=== PATIENT | female | born 1930 | race Caucasian/White ===

== ENCOUNTER 2016-10-16 12:05 | Inpatient (IN) | payer MEDICARE ==
[~2016-10-16] VITALS: Ht 172.7 cm; Wt 72.7 kg
[~2016-10-16 12:05] MED LIST: AMBIEN5 MG PO; ARICEPT10 MG PO; ASPIRIN81 MG PO; ATIVAN0.5 MG PO; BENADRYL25 M1 PO; BETAPACE 120 M120 MG PO; BUMEX2 MG PO; CARDIZEM CD180 MG PO; CHERATUSSIN AC473 ML PO; CLARITHROMYCIN500 M1 PO; COLACE100 MG PO; COUMADIN5 MG PO; COZAAR100 MG PO; CYMBALTA60 MG PO; HYDROCODONE-APA1 TAB PO; KLOR-CON 1010 MEQ PO; LEVOTHYROXINE50 MCG PO; MIRALAX17 GM PO; NIFEDICAL30 MG/BOTT PO; NORCO 10/325 TA1 TA1 PO; PHENERGAN25 M1 PO; PLAVIX75 MG PO; PREMARIN1.25 MG PO; PRILOSEC20 MG PO; SINGULAIR10 MG PO
[2016-10-16 13:01] LABS: BASOPHILS 0 % (0.0-2.0); EOSINOPHILS 0 % (0-7); HEMATOCRIT 38.8 % (36.0-48.0); HEMOGLOBIN 12.1 g/dL (12-16); IMMATURE GRANULOCYTES 0.4 % (0-5); LYMPHOCYTES 17.5 % (15-50); MCH 30.9 pg (26.0-34.0); MCHC 31.2 g/dL (31.0-37.0); MEAN PLATELET VOLUME 11.1 fL (7.4-10.4); MONOCYTES 8.4 % (2-11); NEUTROPHILS 73.7 % (40-80); PLATELET COUNT 196 10x3/uL (130-400); RBC 3.92 10x6/uL (4.00-5.40); RDW 13.1 % (11.5-14.5); WBC 4.6 10x3/uL (4.8-10.8)
[2016-10-16 13:22] LABS: ALBUMIN 3.7 g/dL (3.4-5.0); ANION GAP 14.2 mmol/L (8-16); BILIRUBIN - TOTAL 0.73 mg/dL (0.2-1.3); CALCIUM 9.2 mg/dL (8.5-10.1); CREATININE - SERUM 0.9 mg/dL (0.6-1.3); POTASSIUM - SERUM 4.2 mmol/L (3.5-5.1); PROTEIN - SERUM 6.9 g/dL (6.4-8.2)
[2016-10-16 13:45] LABS: TROPONIN-I 0.531 ng/mL (0.000-0.060)
[2016-10-16 14:26] LABS: CREATINE KINASE 43 UL (21-215); PRO BNP 5829 pg/mL (0-450)
--- NOTE | 2016-10-16 16:47 | NUR ---
TRANSFER FROM ER BY W/C. MAMADOUINTED TO ROOM. CALL LIGHT IN REACH. WILL CONT. PLAN OF CARE.
[2016-10-16 16:59] VITALS: BMI 24.3
[2016-10-16 20:00] VITALS: BP 123/79
--- NOTE | 2016-10-16 21:29 | HP ---
PATIENT: THELMA SEWELL MEDICAL RECORD: [id number] ACCOUNT: [id number] LOCATION:[address] : 29 ADMISSION DATE: 10/16/16 HISTORY AND PHYSICAL EXAMINATION REASON FOR ADMISSION: Shortness of breath. HISTORY OF PRESENT ILLNESS: The patient is an 85-year-old female with history of coronary artery disease. She apparently had some coronary stents placed approximately 2 weeks ago. She has noticed some mild shortness of breath with exertion for some time, but she thinks that her recent echocardiogram did not show a problem. Additionally, she had a mitral valve replacement in [address] [place] [address] Sonia Concepcion. She woke up this morning having difficulty breathing as she said it was awful. She has had no cough, just could not catch her breath. She eventually presented to the Emergency Room by EMS, was hypertensive and tachypneic. She was evaluated by Dr. Quinones. She noted the patient being congestive heart failure and she is now admitted for treatment. She denies any chest pain symptoms similar to this in the past. The patient's echocardiogram 2 weeks ago revealed normal LV size with an EF of 40%, left atrium was 3.8 cm, right atrium and right ventricle are mildly dilated, aortic valve was replaced with tissue prosthesis. Mitral valve shows significant restenosis. The valve area is 0.9 and severe tricuspid regurgitation with pulmonary hypertension. PAST MEDICAL HISTORY: Aortic valve replacement, essential hypertension, GERD, hyperlipidemia, osteoarthritis of knees intervertebral disc degeneration, history of mitral valve replacement, pulmonary hypertension, dementia and peripheral edema. History of atrial fibrillation with rapid ventricular response, 10/05/2016, RCA PTCA and hypothyroidism. PAST SURGICAL HISTORY: She had laminectomy for degenerative disc disease, mitral valve replacement in 2002, appendectomy, laparoscopic cholecystectomy, hysterectomy, left partial knee replacement and lumbar laminectomies. SOCIAL HISTORY: Nonsmoker, lifelong. She is . ____ lives in the area so she has moved here. FAMILY HISTORY: Mother and father both had CHF and CAD. Mother had hypertension. ALLERGIES: None known. HOME MEDICATIONS: Diltiazem 30 mg p.o. t.i.d., Plavix 75 mg p.o. daily, sotalol 120 mg p.o. b.i.d., Klor-Con 10 mEq p.o. b.i.d., nifedipine XR 30 mg p.o. daily, Bumex 2 mg p.o. daily, losartan 100 mg p.o. daily and levothyroxine 50 mcg p.o. daily. REVIEW OF SYSTEMS: GENERAL: Fatigued. No fever. HEENT: No recent visual change, sinus congestion, or sore throat. She does have hearing difficulty. RESPIRATORY: Marked onset of shortness of breath this morning, but she does admit to some mild exertional dyspnea for the last several weeks. She denies cough or sputum production. CARDIAC: Denies chest pain, palpitations, but she has had some ankle edema. HISTORY AND PHYSICAL [id number] THELMA SEWELL GASTROINTESTINAL: No nausea, vomiting, change in stools or blood per rectum. GENITOURINARY: Denies dysuria. Has mild stress incontinence. ENDOCRINE: Denies polyuria, polydipsia, heat or cold. NEUROLOGIC: No history of stroke, TIA, or vascular headaches. Admits to memory loss. MUSCULOSKELETAL: Chronic arthralgias in her knees and lumbar spine, no sciatica, currently. INTEGUMENT: No rash or itching. PSYCHIATRIC: Denies depress mood. PHYSICAL EXAMINATION: VITAL SIGNS: Temperature 98.4 Fahrenheit orally, pulse 72 and regular, respirations are 20 and unlabored, blood pressure 163/108 with a sat 90% on 2 liters. GENERAL: Alert and oriented. Normocephalic. Eyes are clear. Oropharynx unremarkable. NECK: No bruits or JVD. CHEST: She has bilateral crackles without wheeze. She is not a candidate for having retractions. HEART: Regular rate with a faint aortic murmur noted on systole. ABDOMEN: Soft, nontender and mildly obese. EXTREMITIES: She has 2+ mild pedal and 1+ pretibial edema of the knees bilaterally. NEUROLOGICAL: Oriented to person, place, and time currently. No motor or sensory deficits are appreciated. Gait was not tested. LABORATORY DATA: Shows white count of 4.6, H&H of 12 and 38.8 respectively with normal differential. BMP is normal with a GFR of 63 mL per minute. Glucose is 141 nonfasting. Troponin 0.531. ProBNP is 5829. Blood gas showed acidosis with pH of 7.180, pCO2 of 68 and pO2 of 78. DIAGNOSTIC DATA: Chest x-ray shows moderate congestive heart failure with right pleural effusion. ASSESSMENT: 1. New onset congestive heart failure. 2. Respiratory acidosis. 3. Recent percutaneous transluminal coronary angioplasty of the RCA. 4. History of paroxysmal atrial fibrillation, currently in sinus rhythm. 5. History of aortic valve replacement. 6. Essential hypertension. 7. Hypothyroidism. 8. Osteoarthritis. 9. Pulmonary hypertension. 10. Hyperlipidemia. 11. Gastroesophageal reflux disease. PLAN: The patient will be admitted to the cardiac floor. She will be on cardiac monitoring and IV Lasix. Repeat echocardiogram, serial cardiac enzymes. TRANSINT:[id number] Voice Confirmation ID: [id number] DOCUMENT ID: [id number] HISTORY AND PHYSICAL [id number] THELMA SEWELL TIMOTHY MD at 2129 CC: [id number] DICTATION DATE: 10/16/161741 COMPLAINT OPERATOR: 10/16/162028 ADM IN [facility] [address] [id number]
[2016-10-17] VITALS: BP 103/60
[2016-10-17 04:00] VITALS: BP 119/71
[2016-10-17 05:40] LABS: CHLORIDE - SERUM 107 mmol/L (98-107); CKMB 1.9 U/L (0.0-3.6); CREATINE KINASE 53 UL (21-215); MAGNESIUM - SERUM 1.5 mg/dL (1.8-2.4); POTASSIUM - SERUM 3.7 mmol/L (3.5-5.1); SODIUM 145 mmol/L (136-145); eGFR NON AFRICAN AMERICAN 41 mL/min (90-120)
[2016-10-17 05:42] LABS: CALC OSMOLALITY 290 mosm/kg (275-300); CREATININE - SERUM 1.3 mg/dL (0.6-1.3); GLUCOSE 86 mg/dL (74-106); UREA NITROGEN 20 mg/dL (7-18)
[2016-10-17 06:13] LABS: TROPONIN-I 0.577 ng/mL (0.000-0.060)
--- NOTE | 2016-10-17 07:12 | NUR ---
RESTING QUIETLY NAD NOTED
--- NOTE | 2016-10-17 07:41 | NUR ---
ASSESSMENT COMPLETED. TELEMERTY SHOWS SR. 02 AT 2 L/M PER NC. DENIES ANY NEEDS. SR UP WITH CALL LIGHT IN REACH. BED LOW. WILL MONITOR
[2016-10-17 07:56] VITALS: BP 108/61
[2016-10-17 11:57] VITALS: Ht 172.7 cm; Wt 72.7 kg
--- NOTE | 2016-10-17 12:20 | NUR ---
HOB UP. C/O NAUSEA. ZOFRAN GIVEN FOR RELIEF.. TELEMETRY SHOWS SR.
[2016-10-17 12:22] VITALS: BP 107/47
[2016-10-17 16:00] VITALS: BP 114/62
--- NOTE | 2016-10-17 16:16 | NUR ---
Is the patient Alert and Oriented? Yes 0 * How many steps to enter\exit or inside your home? 0 0 * PCP DR Edgar 0 * Pharmacy [facility] 0 * Preadmission Environment Home Alone 0 * ADLs Independent 0 * Equipment Oxygen 0 * Other Equipment walker 0 * List name and contact numbers for known caregivers / representatives who currently or will assist patient after discharge: Feli Hakns- [phone]- friend 0 * Community resources currently utilized Home Health 0 * Please name any agencies selected above. [facility] 0 * Additional services required to return to the preadmission environment? No 0 * Can the patient safely return to the preadmission environment? Yes 0 * Has this patient been hospitalized within the prior 30 days at any hospital? Yes
--- NOTE | 2016-10-17 16:27 | NUR ---
Is the patient Alert and Oriented? Yes 0 * How many steps to enter\exit or inside your home? 0 0 * PCP DR Edgar 0 * Pharmacy [facility] 0 * Preadmission Environment Home Alone 0 * ADLs Independent 0 * Equipment Oxygen 0 * Other Equipment walker 0 * List name and contact numbers for known caregivers / representatives who currently or will assist patient after discharge: Feli Hanks- [phone]- friend 0 * Community resources currently utilized Home Health 0 * Please name any agencies selected above. [facility] 0 * Additional services required to return to the preadmission environment? No 0 * Can the patient safely return to the preadmission environment? Yes 0 * Has this patient been hospitalized within the prior 30 days at any hospital? Yes
--- NOTE | 2016-10-17 16:40 | NUR ---
Patient Name: THELMA SEWELL Admission Status: ER Accout number: [id number] Admission Date: 10-16-2016 : 1929 Admission Diagnosis: Attending: LYNN Current LOS: 1 Anticipated DC Date: Planned Disposition: Home with Home Health Primary Insurance: MEDICARE A & B Discharge Planning Comments: Patient readmitted within 7 days of discharge. Had home health w/ [facility]. She did have one visit w/ the nurse prior to readmission. Patient is not certain why she became short of breath. Stated she did obtain her medications at discharge. She lives alone but has a good friend, Feli Hanks who assist her w/ shopping etc. Patient does have a daughter that lives in [place] Patient home O2 w/ [facility]. Home Health provider- [facility]- [facility] and [facility] for short term medications PCP- Dr Herve ZAMORA will follow to assist w/ discharge planning when appropriate. Patient denied any additional needs at this time. Will follow. Technology Teacher: Kassy Trevizo
--- NOTE | 2016-10-17 18:23 | NUR ---
LYING QUIETLY WITH EYES CLOSED. SR UP WITH CALL LIGHT IN REACH
--- NOTE | 2016-10-17 19:30 | NUR ---
INITIAL ROUNDS CMPLETED. PT DENIES ANY DISCOMFORT. WILL CONTINUE TO MONITOR.
[2016-10-17 20:30] VITALS: BP 107/72
--- NOTE | 2016-10-17 22:09 | NUR ---
NORCO GIVEN WITH SCHEDULED 2100 MEDS FR C/O CHRONIC BACK AND HIP PAIN. ZOFRAN 4MG SIVP GIVEN AT 2200 HRS FOR C/O NAUSEA. PT REQUESTING ATIVAN. INFORMED PT THAT AMBIEN AND NORCO GIVEN AND NEED TO WAIT A BIT. WILL CONTINUE TO MONITOR. SR UP X2, CALL LIGHT WITHIN REACH.
--- NOTE | 2016-10-17 23:59 | NUR ---
CAF PER CM HR 71. PT RESTING WITH EYES CLOSED. RESP EVEN AND REGULAR. SR UP X2, CALL LIGHT WITHIN REACH.
[2016-10-18 00:30] VITALS: BP 90/47
--- NOTE | 2016-10-18 02:38 | NUR ---
PT RESTING WITH EYES CLOSED. RESP EVEN AND REGULAR SR UP X2, CALL LIGHT WITHIN REACH.
--- NOTE | 2016-10-18 03:45 | NUR ---
PT RESTING WITH EYES CLOSED. RESP EVEN AND REGULAR. SR UP X2, CALL LIGHT WITHIN REACH AND BED ALARM ON.
[2016-10-18 04:30] VITALS: BP 119/75
--- NOTE | 2016-10-18 06:27 | NUR ---
VSS THROUGHOUT NIGHT. CAF PER CM. PT SLEPT WELL AFTER ATIVAN ADMINISTRATION. NEEDS MET; WILL CONTINUE TO MONITOR.
[2016-10-18 06:58] LABS: ANION GAP 9.3 mmol/L (8-16); CALCIUM 8.6 mg/dL (8.5-10.1); CARBON DIOXIDE 32.3 mmol/L (21.0-32.0); POTASSIUM - SERUM 3.6 mmol/L (3.5-5.1)
[2016-10-18 07:01] LABS: CREATININE - SERUM 1.8 mg/dL (0.6-1.3)
--- NOTE | 2016-10-18 08:08 | NUR ---
RESTING QUIETLY EYES CLOSED RESP UNLABORED NAD NOTED
[2016-10-18 09:31] VITALS: BP 123/74
[2016-10-18 12:55] VITALS: BP 99/60
[2016-10-18 16:59] VITALS: BP 92/49
[2016-10-18 21:13] VITALS: BP 105/57
--- NOTE | 2016-10-18 22:40 | NUR ---
INITIAL ROUNDS COMPLETED AT 191 HRS. PT DENIED ANY DISCOMFORT. ASSESSMETN COMPLETED AT 1944 HRS. CAF PER CM HR 68. VSS. O2 4LNC. LUNGS DIMINISHED INBASES BILAT. BRUISES NOTED TO L ELBOW. SORES NOTED TO ANTERIOR CHEST. TRACE PEDAL EDEMA. CAREY DRAINING YELLOW URINE. PM MEDS GIVNE INCLUDING NORCO FOR CHRONIC PAIN AND IV ZOFRAN FOR NAUSES. ATIVAN 0.5MG GIVEN AT 2200 HRS FOR ANXIETY. PT CURRENTLY RESTING WITH EYES CLOSED. RESP EVEN AND REGULAR. SR UP X2, CALL LIGHT WITHIN REACH AND BED ALARM ON.
--- NOTE | 2016-10-19 00:25 | NUR ---
PT RESTING WITH EYES CLOSED. RESP EVEN AND REGULAR. CAF PER CM HR 80. WILL CONTINUE TO MONITOR. SR UP X2, CALL LIGHT WITHIN REACH AND BED ALARM ON.
[2016-10-19 00:30] VITALS: BP 112/78; BP 74/45
--- NOTE | 2016-10-19 02:13 | NUR ---
PT RESTING WITH EYES CLOSED. RESP EVEN AND REGULAR. SR UP X2, CALL LIGHT WITHIN REACH AND BED ALARM ON.
[2016-10-19 04:30] VITALS: BP 108/50
--- NOTE | 2016-10-19 04:33 | NUR ---
PT RESTING WITH EYES CLOSED. RESP EVEN AND REGULAR. SR UP X2, CALL LIGHT WITHIN REACH. BED ALARM ON.
[2016-10-19 07:37] LABS: ANION GAP 11.4 mmol/L (8-16); CALCIUM 8.4 mg/dL (8.5-10.1); CARBON DIOXIDE 31.6 mmol/L (21.0-32.0)
[2016-10-19 08:03] VITALS: BP 134/66
--- NOTE | 2016-10-19 09:22 | NUR ---
TELEMETRY CAF. RESP UL ON 02 4L KODY. CHERRY NICHOLAS. CALL LIGHT IN REACH. WILL CONT. PLAN OF CARE.
[2016-10-19 13:00] VITALS: BP 100/58
[2016-10-19 16:23] VITALS: BP 95/50
--- NOTE | 2016-10-19 19:00 | NUR ---
RECEIVED REPORT AND ASSUMED PT CARE FROM DAY SHIFT NURSE @ THIS TIME.
--- NOTE | 2016-10-19 20:10 | NUR ---
PT C/O PAIN TO IV SITE. FLUSHES EASILY, GOOD BLOOD RETURN. HOWEVER, SITE IS REDDENED. LEFT AC IV REMOVED, CATH INTACT ON REMOVAL. DRESSING APPLIED. PT RESITED TO THE LEFT WRIST X2 STICKS WITH 22 GA ANGIOCATH. PT TOLERATED WELL. WILL CONT TO MONITOR.
--- NOTE | 2016-10-19 20:55 | NUR ---
PT C/O PAIN TO HER BACK, RATES @ 6 ON PAIN SCALE. PT ALSO REPORTS HAVING NAUSEA AND ANXIETY. NORCO 10/325 MG 1 PO GIVEN. PHENERGAN 25 MG PO GIVEN AND ATIVAN 0.5 MG PO GIVEN. WILL CONT TO MONITOR.
[2016-10-19 21:31] VITALS: BP 118/58
--- NOTE | 2016-10-19 23:28 | NUR ---
PT TURNS METAL ROLLING MILL OPERATOR LIGHT AND NURSE GOES TO ROOM. PT REQUESTS PAIN PILL OR ATIVAN, STATES "I NEED SOMETHING". WHEN ASKED PT IS SHE WAS HURTING, PT WAS BACK TO SLEEP AND SNORING. WILL CONT TO MONITOR.
[2016-10-20 06:33] VITALS: BP 113/69
[2016-10-20 06:54] LABS: ANION GAP 6.9 mmol/L (8-16); CALCIUM 8.2 mg/dL (8.5-10.1); CARBON DIOXIDE 35.3 mmol/L (21.0-32.0); CREATININE - SERUM 1.5 mg/dL (0.6-1.3); POTASSIUM - SERUM 4.2 mmol/L (3.5-5.1)
--- NOTE | 2016-10-20 07:00 | NUR ---
RECEIVED REPORT FROM AUTOMATIC STEEL TIE ADJUSTER NURSE, RENU ROSALES. PT IN BED, DENIES ANY NEEDS AT THIS TIME. PT REFUSES TO WEAR SCD'S, CALL LIGHT IN REACH, NAD NOTED, WILL CONTINUE TO MONITOR.
[2016-10-20 07:52] VITALS: BP 128/69
--- NOTE | 2016-10-20 09:08 | NUR ---
ADMINSITERED MORNING MEDICATIONS, AND 4MG OF ZOFRAN PER PT REQUEST. PT IN BED, DENIES ANY OTHER NEEDS AT THIS TIME. CALL LIGHT IN REACH, NAD NOTED, WILL CONTINUE TO MONITOR.
[2016-10-20 12:00] VITALS: BP 114/64
--- NOTE | 2016-10-20 12:23 | NUR ---
ADMINSITERED 25MG OF PHENERGAN PER PT REQUEST. PT IN BED, DENIES ANY NEEDS AT THIS TIME. CALL LIGHT IN REACH, FAMILY AT BEDSIDE, NAD NOTED, WILL CONTINUE TO MONITOR.
--- NOTE | 2016-10-20 14:45 | NUR ---
Nutrition follow-up: Diet: Low sodium PO intake ~60% average of last 3 meals Labs reviewed Wt: 164# PO intake is fair at this time. Will continue to provide food choices and honor food preferences within diet restrictions. RDN following.
[2016-10-20 15:44] VITALS: BP 87/47
--- NOTE | 2016-10-20 15:50 | NUR ---
BP OF 87/47, REMOVED NITRO PATCH, WILL RECHECK BP IN ABOUT 30MIN. 1630- BP 114/60, HR 65
--- NOTE | 2016-10-20 16:18 | NUR ---
ADMINSITERED 4MG OF ZOFRAN PER PT REQUEST. PT DENIES ANY OTHER NEEDS AT THIS TIME. CALL LIGHT IN REACH, NAD NOTED, WILL CONTINUE TO MONITOR.
[2016-10-20 16:30] VITALS: BP 114/60
--- NOTE | 2016-10-20 19:03 | NUR ---
SITTING UP IN BED, AAOX3, SKIN WARM AND DRY, RESP UNLABORED, IV PATENT TO LEFT WRIST, CAREY DRAINING GRAVITY, O2@4LNC, COMPLAINING OF NAUSEA, WILL GIVE ZOFRAN WHEN DUE, WILL MONITOR
[2016-10-20 20:33] VITALS: BP 115/53
[2016-10-21 00:32] VITALS: BP 121/59
[2016-10-21 04:42] VITALS: BP 127/66
--- NOTE | 2016-10-21 05:39 | NUR ---
RESTING QUIETLY IN BED, NO DISTRESS NOTED
--- NOTE | 2016-10-21 06:20 | NUR ---
PT LAYING IN BED NO DISTRESS OBSERVED CALL LIGHT IN REACH SRX2 BED LOW AND LOCKED WILL MONITOR
--- NOTE | 2016-10-21 06:48 | NUR ---
RECEIVED REPORT FROM HEALTH CARE SPECIALIST NURSE, RENU ROSALES. PT UP TO SIDE OF BED, AT THIS TIME. DENIES ANY NEEDS, ASSESSMENT DONE AT THIS TIME. CALL LIGHT IN REACH, NAD NOTED, WILL CONTINUE TO MONITOR.
[2016-10-21 07:25] LABS: ANION GAP 8.3 mmol/L (8-16); CALCIUM 8.2 mg/dL (8.5-10.1); CARBON DIOXIDE 32.8 mmol/L (21.0-32.0); CREATININE - SERUM 1.2 mg/dL (0.6-1.3); POTASSIUM - SERUM 4.1 mmol/L (3.5-5.1)
[2016-10-21 08:00] VITALS: BP 147/83
--- NOTE | 2016-10-21 09:00 | NUR ---
ADMINSITERED 4MG OF ZOFRAN FOR NAUSEA. PT VERY NAUSEATED, SO WILL WAIT 30MIN TO ADMINSTER MORNING MED. PT DENIES ANY OTHER NEEDS AT THIS TIME.C ALL LIGHT IN REACH, NAD NOTED, WILL CONTINUE TO MONITOR.
--- NOTE | 2016-10-21 09:38 | NUR ---
ADMINISTERED MORNING MEDICATIONS, PT STATED SHE FEELS MUCH BETTER, DENIES ANY NEEDS AT THIS TIME. CALL LIGHT IN REACH, NAD NOTED, CALL LIGHT IN REACH, NAD NOTED, WILL CONTINUE TO MONITOR.
[2016-10-21 12:00] VITALS: BP 144/84
--- NOTE | 2016-10-21 13:44 | NUR ---
PT WENT FROM CAF TO SB 53.
[2016-10-21 16:00] VITALS: BP 94/38
--- NOTE | 2016-10-21 18:28 | NUR ---
ADMINISTERED NORCO 10MG FOR PAIN LEVEL OF 9/10. PT DENIES ANY OTHER NEEDS AT THIS TIME. CALL LIGHT IN REACH, NAD NOTED, WILL CONTINUE TO MONITOR.
--- NOTE | 2016-10-21 19:03 | NUR ---
SITTING UP IN BED, AAOX3, SKIN WARM AND DRY, RESP UNLABORED, IV PATENT TO LEFT WRIST, O2@4LNC, CAREY DRAINING TO GRAVITY, NO DISTRESS NOTED
[2016-10-21 20:00] VITALS: BP 119/63
[2016-10-22] VITALS: BP 133/56
--- NOTE | 2016-10-22 03:56 | NUR ---
MEDICAL CSR AT BEDSIDE TO OBTAIN VITALS, CALL LIGHT IN REACH. WILL CONTINUE WITH PLAN OF CARE.
[2016-10-22 04:00] VITALS: BP 152/77
--- NOTE | 2016-10-22 06:21 | NUR ---
RESTING QUIETLY IN BED, NO DISTRESS NOTED
[2016-10-22 06:24] LABS: ANION GAP 7.5 mmol/L (8-16); CALCIUM 8.2 mg/dL (8.5-10.1); CARBON DIOXIDE 33.9 mmol/L (21.0-32.0); CREATININE - SERUM 1.2 mg/dL (0.6-1.3); POTASSIUM - SERUM 4.4 mmol/L (3.5-5.1)
--- NOTE | 2016-10-22 07:48 | NUR ---
PT SITTING UP IN BED SLEEPING NO S/S DISTRESS NOTED WILL CONTINUE TO MONITOR.
[2016-10-22 08:14] VITALS: BP 136/77
[2016-10-22 08:18] LABS: MAGNESIUM - SERUM 1.4 mg/dL (1.8-2.4); PHOSPHOROUS 3.6 mg/dL (2.5-4.9)
[2016-10-22 12:40] VITALS: BP 125/55
--- NOTE | 2016-10-22 14:05 | NUR ---
PT WITH MULTIPLE FRIENDS AND FAMILY IN THE ROOM AT THIS TIME. PT DENIES NEEDS AT THIS TIME WILL CONTINUE TO MONITOR.
--- NOTE | 2016-10-22 16:23 | CN ---
PATIENT NAME:THELMA SEWELL MEDICAL RECORD: [id number] : 29 LOCATION:D. D.2123 ADMIT DATE: 10/16/16 ACCOUNT: [id number] CONSULTING PHYSICIAN: ZEUS BARRETT MD REFERRING PHYSICIAN: LUDIN VILLAFUERTE MD DATE OF CONSULTATION: 10/16/2016 Cardiology Consultation DIAGNOSES: 1. Congestive heart failure. 2. Pulmonary edema. 3. Shortness of breath, dyspnea on exertion. 4. Coronary artery disease. 5. Recent percutaneous transluminal coronary angioplasty stent, right coronary artery. 6. Hypertension. 7. Paroxysmal atrial fibrillation, controlled in sinus rhythm on sotalol. HISTORY OF PRESENT ILLNESS: Mrs. Sewell presents with increasing shortness of breath. No chest pain. Chest x-ray is compatible with pulmonary edema. Her heart does remain in sinus rhythm. Her EKG is with no acute ST-T abnormalities. PHYSICAL EXAMINATION: GENERAL APPEARANCE: Well-nourished, well-developed, appears stated age. Level of distress, comfortable. PSYCHIATRIC: Mental status, alert, normal affect. Orientation, oriented to time, place and person. EYES: Lids and conjunctiva, noninjected. No discharge, no pallor. ENT: Lips, teeth, gums, normal dentition. Oropharynx, no cyanosis, no pallor. NECK: Carotid arteries, bilateral normal upstroke, no bruits, no thrills. JUGULAR VEINS: No jugular venous pressure or distention. CERVICAL LYMPH NODES: Nontender, nonenlarged. THYROID: Not enlarged. Nontender. No nodules. LUNGS: Respiratory effort, unlabored. CHEST: Normal curvature. No thoracic deformity. No chest wall tenderness. ____. Bilateral crackles compatible with pulmonary edema. CARDIOVASCULAR: Precordial exam, nondisplaced. No heaves or pericardial thrills. Rate and rhythm, regular. Heart sounds, normal S1, normal S2. No S3, no gallop, no rub. Systolic murmur, not heard. Diastolic murmur, not heard. EXTREMITIES: No cyanosis, no edema. Peripheral pulses, full and equal in all extremities, except as noted. No bruits appreciated. ABDOMEN: Soft, nondistended. Normal aorta. No bruit. Nontender. No masses. Liver, nontender, no hepatomegaly. Spleen, nontender, no splenomegaly. MUSCULOSKELETAL: No joint tenderness. No joint swelling. No erythema. NEUROLOGICAL: Normal gait, normal strength, normal tone. SKIN: Warm and dry. OVERALL IMPRESSION: Congestive heart failure. At this time, she should respond to Lasix therapy. We will use 40 mg IV q.8 hours. We will get an echocardiogram. When we did the cardiac catheterization, her ejection fraction was in the 60% range, but clearly on chest x-ray, she has congestive heart failure and clinically, she has congestive heart failure. She is not out of rhythm and is having no chest pains. I do not think she needs any further ongoing ischemic workup, only treatment of the congestive heart failure with CONSULT REPORT [id number] THELMA SEWELL. We will get an echocardiogram to reevaluate her ejection fraction. TRANSINT:[id number] Voice Confirmation ID: [id number] DOCUMENT ID: [id number] ZEUS BARRETT MD at 1623 CC: [id number] DICTATION DATE: 10/16/16 1405 CAMPUS AIDE: 10/16/16 1434 ADM IN [id number] [place] [address]
--- NOTE | 2016-10-22 16:23 | EC ---
PATIENT:THELMA SEWELL DATE OF SERVICE: 10/16/16 SEX: F MEDICAL RECORD: [id number] DATE OF : 29 LOCATION:D.M2 D.212 AGE OF PATIENT: 85 ADMISSION DATE: 10/16/16 REFERRING PHYSICIAN: INTERPRETING PHYSICIAN: ZEUS ZHANG MD ECHOCARDIOGRAM REPORT ECHO CHARGES 4 ECHO COMPLETE CLINICAL DIAGNOSIS: CHF HX OF MVR / CAD/STENT ECHOCARDIOGRAPHIC MEASUREMENTS (adult normal given) AC root (d.<3.7cm) 3.5 LV Septum d (<1.2 cm> 1.6 Valve Excursion 1.9 LV Septum (systole) 2.0 Left Atria (s.<4.0cm> 4.0 LVPW d(<1.2cm) 1.6 RV (d.<2.3cm) 3.9 LVPW (sytole) 1.8 LV diastole(<5.6CM) 4.9 MV E-F(>70mm/sec) LV systole 3.4 LVOT Diameter 1.3 MV exc.(>10mm) 1.2 Est.ejection fraction (50-75%) Pericardial Effusion N DOPPLER: LVIT A 141 E 201 LA RVSP 91 LVOT 121 AOP1/2T 334 Asc. Ao 160 RVOT 64 RA PA 110 AV Gradient Peak 10.22 AV Mean 5.43 AV Area 1.1 MV Gradient Peak 17.40 MV Mean 7.34 MV Area COMMENTS: Back Office Medical Assistant: Boyd OLMOS Supervisor [place]:1 Dr. Zhang TAPE# PACS DATE OF SERVICE: 10/16/2016 Echocardiogram FINDINGS: 1. Left ventricular chamber size is within1 normal limits. Left ventricular systolic function is markedly depressed, overall ejection fraction is in the 30% range. There is a definite apical hypokinesis. 2. Left atrium is within normal limits at 4.0 cm. Right atrium and right ventricular chamber sizes are mildly dilated. ECHOCARDIOGRAM REPORT [id number] THELMA SEWELL 3. Valvular structures: Aortic valve demonstrates mild calcific aortic stenosis. Valve area calculates to 1.1 cm-squared and there is gradient of 10 mm across the valve. The remaining valvular structures have normal structure and motion. 4. Doppler interrogation elsewise reveals mild aortic insufficiency, moderate mitral regurgitation, severe tricuspid regurgitation and pulmonary systolic pressure is markedly elevated estimated at 92 mmHg. 5. No evidence of pericardial effusion or left ventricular thrombus. TRANSINT:[id number] Voice Confirmation ID: [id number] DOCUMENT ID: [id number] ZEUS ZHANG MD at 1623 CC: [id number] DICTATION DATE: 10/16/16 1642 JUNIOR ACCOUNT MANAGER: 10/16/16 2213 ADM IN [facility] [address] [place] [address]
[2016-10-22 16:57] VITALS: BP 114/84
--- NOTE | 2016-10-22 17:28 | NUR ---
PT SITTING UP IN BED EATING DINNER DENIES NEEDS AT THIS TIME
[2016-10-22 20:00] VITALS: BP 145/74
--- NOTE | 2016-10-22 20:00 | NUR ---
PT RESTING IN BED. ALERT/ORIENTED. SR/SB PER TELEMETRY. O2 @ 4L/NC. SALINE LOCK TO LEFT WRIST. CAREY PATENT TO BEDSIDE DRAIN BAG. NO FURTHER REPORTS OF NAUSEA. SEE ASSESSMENT. CPOC.
[2016-10-23 02:28] VITALS: BP 147/67
--- NOTE | 2016-10-23 04:43 | NUR ---
PATIENT REFUSED ABG.
[2016-10-23 05:35] LABS: BASOPHILS 0.2 % (0.0-2.0); EOSINOPHILS 0 % (0-7); HEMATOCRIT 32.8 % (36.0-48.0); HEMOGLOBIN 10.1 g/dL (12-16); IMMATURE GRANULOCYTES 0.6 % (0-5); LYMPHOCYTES 27.2 % (15-50); MCH 30.6 pg (26.0-34.0); MCHC 30.8 g/dL (31.0-37.0); MCV 99.4 fL (80.0-100.0); MEAN PLATELET VOLUME 12.1 fL (7.4-10.4); MONOCYTES 10.9 % (2-11); NEUTROPHILS 61.1 % (40-80); PLATELET COUNT 162 10x3/uL (130-400); RDW 13.9 % (11.5-14.5); WBC 5.2 10x3/uL (4.8-10.8)
[2016-10-23 06:08] LABS: ANION GAP 8.2 mmol/L (8-16); CALCIUM 8.6 mg/dL (8.5-10.1); CARBON DIOXIDE 32.3 mmol/L (21.0-32.0); CREATININE - SERUM 1.1 mg/dL (0.6-1.3); MAGNESIUM - SERUM 1.5 mg/dL (1.8-2.4); PHOSPHOROUS 3.5 mg/dL (2.5-4.9); POTASSIUM - SERUM 4.5 mmol/L (3.5-5.1)
[2016-10-23 08:00] VITALS: BP 136/73
--- NOTE | 2016-10-23 08:06 | NUR ---
PT SITTING UP IN BED DENIES NEEDS WILL CONTINUE TO MONITOR.
--- NOTE | 2016-10-23 10:14 | NUR ---
Nutrition Follow Up: Chart reviewed. Diet: AHA 1g Na PO Intake: 59% (9 meal avg) I>O No BM since admit Wt gain 9# since admit Meds: Lasix, Synthroid, Zofran, Phenergan Labs noted Pt with good po intake at this time. Rec continue current diet. Will continue to provide selective menus and honor food preferences within the diet ordered. RD following.
[2016-10-23 12:00] VITALS: BP 94/56
--- NOTE | 2016-10-23 15:34 | NUR ---
PT PIV INFILTRATED DC WITH CATHETER TIP INTACT. TRIED TO RESITE PT TIMES 2 STICKS NO SUCCESS. JAMIL RESITED TO R FA 22G X1 STICK.
[2016-10-23 16:00] VITALS: BP 94/48
--- NOTE | 2016-10-23 18:44 | NUR ---
PT SITTING UP IN BED DENIES NEEDS
[2016-10-23 20:00] VITALS: BP 109/52
--- NOTE | 2016-10-23 20:58 | NUR ---
RESTING IN BED. ALERT/ORIENTED. PIV TO RIGHT HAND WITH NS @ KVO FOR ABT. PT REQUESTED ALL SLEEPING AND PAIN MEDS AVAILABLE FOR BEDTIME. MEDS GIVEN. ASSESSMENT. COMPLETED. CALL LIGHT IN REACH. CPOC.
--- NOTE | 2016-10-23 23:53 | NUR ---
PT CONFUSED. SITTING ON SIDE OF BED TALKING INTO PHONE THAT IS MAKING A BUSY SOUND. TELEMETRY IS OFF AND WRAPPED UP BESIDE HER. SHE TELLS NURSE THAT SHE WILL NOT PUT IT BACK ON BECAUSE IT IS "TOO HEAVY". SALINE LOCKED PIV TO RIGHT WRIST.
[2016-10-24] VITALS: BP 148/78
[2016-10-24 05:31] LABS: MAGNESIUM - SERUM 1.7 mg/dL (1.8-2.4); PHOSPHOROUS 3.4 mg/dL (2.5-4.9); POTASSIUM - SERUM 4.9 mmol/L (3.5-5.1)
--- NOTE | 2016-10-24 07:31 | NUR ---
PT SITTING UP IN BED DENIES NEEDS WILL CONTINUE TO MONITOR
[2016-10-24 08:03] VITALS: BP 135/66
[2016-10-24 12:11] VITALS: BP 119/66
[2016-10-24 15:52] VITALS: BP 123/51
--- NOTE | 2016-10-24 16:49 | NUR ---
PT SITTING UP IN BED DENIES NEEDS AT THIS TIME WILL CONTINUE TO MONITOR
--- NOTE | 2016-10-24 21:03 | NUR ---
PT RESTING IN BED. ALERT/ORIENTED. HAD EVIDENCE OF A NOSE BLEED. NOTED THAT RT HAS NOW HUMIDIFIED HER O2 @ 2L/NC. CHERRY PATENT TO BEDSIDE DRAIN BAG. REQUESTING ALL AVAILABLE SLEEP/PAIN/MUSCLE MEDS AVAILABLE. STARTED IV ABT TO PIV IN RIGHT WRIST. SEE ASSESSMENT. CPOC. CALL LIGHT IN REACH.
--- NOTE | 2016-10-24 21:05 | NUR ---
ALL HS MEDS GIVEN.
[2016-10-24 21:48] VITALS: BP 150/68
[2016-10-25 00:30] VITALS: BP 109/60
--- NOTE | 2016-10-25 01:40 | NUR ---
NOTED NEW ORDER PER DR BURKETT. ADMINISTERED LASIX 40MG SIVP TO RIGHT HAND PIV AT THIS TIME. PT ROUSED AND WAS TOLD OF NEW ORDER, NOW BACK TO SLEEP. NO DISTRESS. SR PER TELEMETRY. CPOC.
[2016-10-25 04:30] VITALS: BP 132/66
[2016-10-25 05:51] LABS: MAGNESIUM - SERUM 1.8 mg/dL (1.8-2.4); PHOSPHOROUS 3.7 mg/dL (2.5-4.9); POTASSIUM - SERUM 4.5 mmol/L (3.5-5.1); THYROID STIMULATING HORMONE 3.8 uIU/mL (0.36-3.74)
--- NOTE | 2016-10-25 06:34 | NUR ---
PT ROUSED EASILY FOR AM MEDS, THEN REQUESTED PAIN AND NERVE PILLS. REQUESTED MEDS GIVEN.
--- NOTE | 2016-10-25 07:20 | NUR ---
ASSESSMENT DONE. DENIES NEEDS.
[2016-10-25 08:22] VITALS: BP 146/65
--- NOTE | 2016-10-25 09:41 | NUR ---
RESP UL ON . IV PATENT. CALL LIGHT IN REACH. WILL CONT. PLAN OF CARE.
[2016-10-25 12:07] VITALS: BP 110/43
[2016-10-25 16:45] VITALS: BP 119/46
--- NOTE | 2016-10-25 16:54 | NUR ---
WITHOUT CHANGES OR DISTRESS NOTED AT THIS TIME. DENIES NEEDS.
--- NOTE | 2016-10-25 19:03 | NUR ---
SITTING UP IN BED, AAOX3, SKIN WARM AND DRY, RESP UNLABORED, IV PATENT TO RIGHT HAND, O2@3LNC, CAREY DRAINING TO GRAVITY, NO DISTRESS NOTED
[2016-10-25 20:30] VITALS: BP 104/52
--- NOTE | 2016-10-25 23:25 | NUR ---
ECONOMIC DEVELOPMENT MANAGER AT BEDSIDE TO OBTAIN VITALS, CALL LIGHT IN REACH. WILL CONTINUE WITH PLAN OF CARE.
[2016-10-26 00:30] VITALS: BP 129/54
[2016-10-26 04:30] VITALS: BP 150/69
--- NOTE | 2016-10-26 06:18 | NUR ---
RESTING QUEITLY IN BED, NO DISTRESS NOTED
[2016-10-26 06:50] LABS: ALBUMIN 2.8 g/dL (3.4-5.0); BILIRUBIN - TOTAL 0.44 mg/dL (0.2-1.3); CARBON DIOXIDE 35.6 mmol/L (21.0-32.0); CREATININE - SERUM 1.5 mg/dL (0.6-1.3); POTASSIUM - SERUM 4.6 mmol/L (3.5-5.1); PROTEIN - SERUM 5.9 g/dL (6.4-8.2)
--- NOTE | 2016-10-26 07:52 | NUR ---
ASSESSMENT COMPLETED. O2 @ 3 L/M PER NC. NO TELEMERTY , PT REFUSED TO WEAR. CAREY CATH PATENT TO GRAVITY BAG. SR UP WITH CALL LIGHT IN REACH
[2016-10-26 08:00] VITALS: BP 111/48
[2016-10-26 10:20] LABS: HELICOBACTER PYLORI IGG POSITIVE (NEGATIVE)
[2016-10-26 12:00] VITALS: BP 151/55
--- NOTE | 2016-10-26 13:24 | NUR ---
WAITING IMPATIENTLY FOR GASTRIC SCANNING. RADIOLOGY CALLED TO FIND OUT TIME; WAITING ON A RETURN CALL.
--- NOTE | 2016-10-26 13:35 | NUR ---
RADIOLOGY CALLED AND WILL GET PATIENT IN 15 MINS.
[2016-10-26 16:00] VITALS: BP 124/50
--- NOTE | 2016-10-26 18:07 | NUR ---
LYING QUIETLY. NO NEEDS VOICED. CALL LIGHT IN REACH. DENIES ANY NEEDS. WILL MONITOR
--- NOTE | 2016-10-26 19:03 | NUR ---
SITTING UP IN BED, AAOX3, SKIN WARM AND DRY, RESP UNLABORED, IV INFILTRATED, WILL RESITE, O2@3LNC, CAREY DRAINING TO GRAVITY, NO DISTRESS NOTED
[2016-10-27] VITALS: BP 100/49
[2016-10-27 04:00] VITALS: BP 114/56
--- NOTE | 2016-10-27 04:52 | NUR ---
PT LAYING IN BED NO DISTRESS OBSERVED CALL LIGHT IN REACH SRX2 BED LOW AND LOCKED WILL MONITOR
--- NOTE | 2016-10-27 04:59 | NUR ---
RESTING QUIETLY IN BED, NO DISTRESS NOTED
--- NOTE | 2016-10-27 07:18 | NUR ---
ASSESSMENT COMPLETED. 02 3 L/M PER ID.CAREY CATH PATENT TO BEDSIDE GRAVITY. PT GETS UP IN ROOM. DENIES ANY NEED. SR UP WITH CALL LIGHT IN REACH. WILL MONITOR
[2016-10-27 07:27] VITALS: BP 118/53
[2016-10-27 11:36] VITALS: BP 104/51
[2016-10-27 12:08] LABS: APTT 34.9 SECONDS (22.8-39.4); INR 1.06 (0.85-1.17); PROTIME 13.7 SECONDS (11.6-15.0)
--- NOTE | 2016-10-27 14:50 | NUR ---
UP TO BR PER SELF. GAIT STEADY. BACK TO BED. ZOFRAN GIVEN FOR NAUSEA. WILL MONITOR
[2016-10-27 15:44] VITALS: BP 95/36
--- NOTE | 2016-10-27 15:50 | NUR ---
RESTING QUIETLY. WILL CONTINUE TO MONITOR
--- NOTE | 2016-10-27 18:38 | NUR ---
LYING QUIETLY, DENIES ANY NEEDS. CALL LIGHT IN REACH WITH SR UP.
--- NOTE | 2016-10-27 19:03 | NUR ---
SITTING UP IN BED, AAOX3, SKIN WARM AND DRY, RESP UNLABORED, IV PATENT TO LEFT WRIST, O2@2.5LNC, CAREY DRAINING TO GRAVITY, NO DISTRESS NOTED
[2016-10-27 19:46] VITALS: BP 108/46
[2016-10-28] VITALS (14 sets, daily range): BP systolic 87–121; BP diastolic 40–74
--- NOTE | 2016-10-28 00:38 | NUR ---
PT LAYING IN BED NO DISTRESS OBSERVED CALL LIGHT IN REACH SRX2 BED LOW AND LOCKED CALL LIGHT IN REACH SRX2 RESPERATIONS EVEN AND UNLABORED ON 2LNC WILL MONITOR
--- NOTE | 2016-10-28 07:59 | NUR ---
ASSESSMENT DONE. DENIES NEEDS.
--- NOTE | 2016-10-28 09:06 | NUR ---
IN X-RAY FOR THORACENTESIS. WILL CONT. PLAN OF CARE.
--- NOTE | 2016-10-28 09:07 | NUR ---
TO IR FOR THORACENTESIS
[2016-10-28 10:43] LABS: PROTEIN - BODY FLUID 2.8 G/DL
[2016-10-28 11:17] LABS: LYMPH - BF 76 %; MACROPHAGES BF 12 %; MESOTHELIALS BF 7 %; NEUT - BF 5 %
--- NOTE | 2016-10-28 19:03 | NUR ---
SITTING UP IN BED, AAOX3, SKIN WARM AND DRY, RESP UNLABORED, IV PATENT TO LEFT FOREARM, CAREY DRAINING TO GRAVITY, NO DISTRESS NOTED
[2016-10-29 01:32] VITALS: BP 117/42
--- NOTE | 2016-10-29 02:23 | NUR ---
LYING IN BED WITH CALL LIGHT IN REACH. WILL CONTINUE WITH PLAN OF CARE.
[2016-10-29 04:57] VITALS: BP 127/66
--- NOTE | 2016-10-29 07:58 | NUR ---
ASSESSMENT DONE. DENIES NEEDS.
[2016-10-29 08:38] VITALS: BP 186/131
[2016-10-29] MEDS ORDERED: REGLAN10 MG PO (08:42)
[2016-10-29] MEDS ORDERED: PYLERA CAPSULE1 CAP PO (08:46)
--- NOTE | 2016-10-29 09:04 | NUR ---
RESTS WITH EYES CLOSED. RSP UL ON . CALL LIGHT IN REACH. WILL CONT. PLAN OF CARE.
--- NOTE | 2016-10-29 10:45 | NUR ---
Patient Name: THELMA SEWELL Admission Status: ER Accout number: [id number] Admission Date: 10-16-2016 : 1929 Admission Diagnosis:HEART FAILURE, UNSPECIFIED Attending: LYNN Current LOS: 13 Anticipated DC Date: 10-29-2016 Planned Disposition: Home with Home Health Primary Insurance: MEDICARE A & B PLANNED EXTERNAL PROVIDER: [facility] Discharge Planning Comments: CM RECEIVED DISCHARGE ORDER, MET WITH PT IN ROOM WHO IS IN AGREEMENT WITH DISCHARGE HOME TODAY, DENIES DISCHARGE NEEDS EXCEPT FOR HOME HEALTH RESUMPTION WITH L[facility]DIA AND PT WOULD LIKE NIGERIEN HERNANDO PATIENT TO CHECK HER HOME OXYGEN UNIT AND REPORTS IT IS RUNNING HOT. IMPORTANT MESSAGE FROM MEDICARE PROVIDED AND EXPLAINED. PT ASKED CM TO CALL HER FRIEND JOHNNIE FOR TRANSPORTATION HOME TODAY. CM CALLED JOHNNIE, , WHO REPORTS TO BE ON HER WAY FROM [place] TO RECORDING STUDIO INTERNSHIP PT TODAY. CM CALLED [facility] PATIENT, , SPOKE TO BENITO WHO WILL ARRANGE A TECHNITION TO CONTACT PT AT HOME TODAY TO EVALUATE HOME OXYGEN UNIT. CM CALLED [facility], , SPOKE TO ISABEL AND NOTIFIED OF PT'S DISCHARGE HOME, FAXED DISHCARGE INFORMATION TO [phone] FOR HOME HEALTH RESUMPTION. PT NOTIFIED WHO DENIED FURHTER DISCHARGE NEEDS. Structural Metal Worker: Jayson Carrillo
--- NOTE | 2016-10-29 12:02 | NUR ---
DC GIVEN TO PT
--- NOTE | 2016-10-29 12:32 | NUR ---
DC HOME PRE PERSONAL CAR
[2016-10-29 17:13] LABS: AFB SPECIMEN PROCESSING Concentration (())
[2016-10-30 12:19] LABS: FUNGUS STAIN Final report (())
[2016-11-06] MEDS ORDERED: NIFEDIPINE ER 60 MG (10:48)
[2016-11-06] MEDS ORDERED: VIBRAMYCIN 100100 MG PO (10:49)
[2016-11-06] MEDS ORDERED: FLAGYL500 MG PO (10:50)
[2016-11-10] MEDS ORDERED: HYDROCODONE-APA1 TAB PO (13:27)
[2016-11-10] MEDS ORDERED: COZAAR50 MG PO (13:27)
[2016-11-30 07:09] LABS: FUNGUS MYCOLOGY CULTURE Final report (())
[2016-12-21 13:13] LABS: ACID FAST CULTURE Negative (()); ACID FAST SMEAR Negative (())
== END 2016-10-29 12:32 | disposition home health service (06) | DRG 291 ==
LOC: D.ER 12:05 → D.M2 15:53
PROVIDERS: Emergency Medicine; Family Medicine; General Practice; Internal Medicine Gastroenterology; Internal Medicine Pulmonary Disease; Radiology Diagnostic Radiology; ADMIT Family Medicine
PROC: 0W993ZZ Drainage of Right Pleural Cavity, Percutaneous Approach (ICD-10-PCS; principal; 2016-10-28 09:00)
DX: I11.0 Hypertensive heart disease with heart failure (principal); J96.22 Acute and chronic respiratory failure with hypercapnia; I50.23 Acute on chronic systolic (congestive) heart failure; E03.9 Hypothyroidism, unspecified; M19.90 Unspecified osteoarthritis, unspecified site; I27.2 Other secondary pulmonary hypertension; E78.5 Hyperlipidemia, unspecified; K21.9 Gastro-esophageal reflux disease without esophagitis; I25.10 Atherosclerotic heart disease of native coronary artery without angina pectoris; I48.0 Paroxysmal atrial fibrillation

== ENCOUNTER 2016-11-16 09:05 | Inpatient (IN) | payer MEDICARE ==
[~2016-11-16] VITALS: Ht 170.2 cm; Wt 73.1 kg
[~2016-11-16 09:05] MED LIST changes: +COZAAR50 MG PO; +FLAGYL500 MG PO; +NIFEDIPINE ER 60 MG; +PYLERA CAPSULE1 CAP PO; +REGLAN10 MG PO; +VIBRAMYCIN 100100 MG PO
[2016-11-16 11:27] LABS: APPEARANCE CLEAR (CLEAR); BACTERIA FEW /hpf (NONE SEEN); BILIRUBIN NEGATIVE (NEGATIVE); COLOR YELLOW (YELLOW); EPITHELIAL CELLS RARE /hpf (0-5); GLUCOSE NEGATIVE (NEGATIVE); KETONE NEGATIVE (NEGATIVE); LEUKOCYTE ESTERASE TRACE (NEGATIVE); MUCUS <1+ /lpf (NONE SEEN); NITRITE NEGATIVE (NEGATIVE); PROTEIN NEGATIVE (NEGATIVE); RED CELLS - URINE RARE /hpf (0-5); SPECIFIC GRAVITY 1.015 (1.005-1.020); UROBILINOGEN NORMAL (NORMAL); WHITE CELLS - URINE RARE /hpf (0-5)
[2016-11-16 11:27] LABS: BASOPHILS 0 % (0.0-2.0); EOSINOPHILS 0 % (0-7); HEMATOCRIT 31.6 % (36.0-48.0); HEMOGLOBIN 9.9 g/dL (12-16); IMMATURE GRANULOCYTES 0.5 % (0-5); LYMPHOCYTES 16.2 % (15-50); MCH 30.2 pg (26.0-34.0); MCHC 31.3 g/dL (31.0-37.0); MCV 96.3 fL (80.0-100.0); MEAN PLATELET VOLUME 10.7 fL (7.4-10.4); NEUTROPHILS 78.3 % (40-80); PLATELET COUNT 194 10x3/uL (130-400); RBC 3.28 10x6/uL (4.00-5.40); RDW 14.5 % (11.5-14.5); WBC 7.7 10x3/uL (4.8-10.8)
[2016-11-16 11:38] LABS: INR 0.99 (0.85-1.17); PROTIME 12.9 SECONDS (11.6-15.0)
[2016-11-16 11:43] LABS: ALBUMIN 3.2 g/dL (3.4-5.0); ANION GAP 11.8 mmol/L (8-16); BILIRUBIN - TOTAL 0.5 mg/dL (0.2-1.3); CALCIUM 8.5 mg/dL (8.5-10.1); CARBON DIOXIDE 27.9 mmol/L (21.0-32.0); CREATININE - SERUM 1.6 mg/dL (0.6-1.3); POTASSIUM - SERUM 3.7 mmol/L (3.5-5.1); PROTEIN - SERUM 6.7 g/dL (6.4-8.2)
[2016-11-16 11:51] LABS: MAGNESIUM - SERUM 1.6 mg/dL (1.8-2.4)
--- NOTE | 2016-11-16 14:00 | NUR ---
ASSESSMENT PER FLOW SHEET.PT TO ROOM 2231 FROM ER VIA STRETCHER.ORIENNTATION TO ROOM.CALL LIGHT IN REACH
[2016-11-16 14:15] VITALS: BP 107/57; BMI 23.5
--- NOTE | 2016-11-16 16:08 | NUR ---
PAIN MEDS ORDERED PER MAR
[2016-11-16 16:46] VITALS: BP 102/51
--- NOTE | 2016-11-16 17:01 | NUR ---
REMAINS WITHOUT DISTRESS.PAIN BETTER,BUT MOVING CAUSES HER PAIN.MONITOR FOR NEEDS
--- NOTE | 2016-11-16 19:40 | NUR ---
ASSESSMENT COMPLETED, NO ACUTE DISTRESS NOTED, NC AND CAREY IN PLACE, VALERA TRACTION (5LBS) IN PLACE TO LLE, SAFETY MEASURES IN PLACE, CL IN REACH, WILL MONITOR
--- NOTE | 2016-11-16 20:05 | NUR ---
DR VILLAFUERTE IN ROOM WITH PATIENT
--- NOTE | 2016-11-16 21:26 | NUR ---
MEDS GIVEN BY STUDENT NURSES
--- NOTE | 2016-11-16 21:47 | NUR ---
MORPHINE GIVEN FOR C/O BACK PAIN 07/27, PHILIP WELL, WILL MONITOR
--- NOTE | 2016-11-16 22:48 | NUR ---
PT TOOK OXIMIZER OFF. REPLACED AND INSTRUCTED TO LEAVE IN PLACE, PT STATES SHE IS A DNR WHEN ASKED ABOUT ADVANCED DIRECTIVES
--- NOTE | 2016-11-16 23:17 | NUR ---
DR PASCUAL CALLED WITH THE FOLLOWING ORDERS: TRANSFER PT TO ICU AND START BUMEX DRIP (STATED HE WOULD PUT IN SPECIFICS FOR DRIP), OBTAIN ABG AND CALL HIM WITH RESULTS, CEZAR HERMOSILLO Q4PRN, CHANGE DNR TO DNI, CARDIOLOGY AND PULMONOLOGY CONSULT.
--- NOTE | 2016-11-16 23:22 | NUR ---
DR PASCUAL RETURNED PAGE ORDERS RECIEVED FOR DUONEB PRN UPDRAFTS AND DNR ORDER PER PT REQUEST
--- NOTE | 2016-11-16 23:49 | NUR ---
ABG RESULTS CALLED TO DR PASCUAL
[2016-11-17] VITALS (48 sets, daily range): BP systolic 77–152; BP diastolic 24–113; Ht 170.2 cm; Wt 73.1 kg
--- NOTE | 2016-11-17 00:22 | NUR ---
TAKEN TO ICU ROOM 2302 VIA STRETCHER WITH NO ACUTE DISTRESS
--- NOTE | 2016-11-17 01:00 | NUR ---
PT RECEIVED FROM MED SURG. ASSESSMENT COMPLETED. SEE FLOW SHEET FOR DETAILS. VSS. WILL MONITOR.
--- NOTE | 2016-11-17 03:00 | NUR ---
REPOSITIONED PT IN BED. PT C/O NAUSEA. PRN PROVIDED.
--- NOTE | 2016-11-17 05:00 | NUR ---
PT C/O PAIN "09/26" PRN MORPHINE GIVEN. VSS. WILL MONITOR.
[2016-11-17 07:56] LABS: BASOPHILS 0 % (0.0-2.0); EOSINOPHILS 0 % (0-7); HEMATOCRIT 35.2 % (36.0-48.0); HEMOGLOBIN 11.1 g/dL (12-16); IMMATURE GRANULOCYTES 0.4 % (0-5); LYMPHOCYTES 10.9 % (15-50); MCH 30.2 pg (26.0-34.0); MCHC 31.5 g/dL (31.0-37.0); MCV 95.7 fL (80.0-100.0); MEAN PLATELET VOLUME 11.1 fL (7.4-10.4); MONOCYTES 3.8 % (2-11); NEUTROPHILS 84.9 % (40-80); PLATELET COUNT 225 10x3/uL (130-400); RBC 3.68 10x6/uL (4.00-5.40); RDW 14.4 % (11.5-14.5)
[2016-11-17 08:00] LABS: WBC 9.7 10x3/uL (4.8-10.8)
[2016-11-17 08:10] LABS: ANION GAP 13.9 mmol/L (8-16); CALCIUM 8.8 mg/dL (8.5-10.1); CARBON DIOXIDE 25.2 mmol/L (21.0-32.0); POTASSIUM - SERUM 4.1 mmol/L (3.5-5.1)
[2016-11-17 08:12] LABS: CREATININE - SERUM 1.1 mg/dL (0.6-1.3)
--- NOTE | 2016-11-17 08:19 | HP ---
PATIENT: THELMA SEWELL MEDICAL RECORD: [id number] ACCOUNT: [id number] LOCATION:[facility] D.2303 : 29 ADMISSION DATE: 11/16/16 HISTORY AND PHYSICAL EXAMINATION DATE OF ADMISSION: 11/16/2016 REASON FOR ADMISSION: Left hip pain. HISTORY OF PRESENT ILLNESS: An 86-year-old white female who got up in the middle of the night to go the bathroom and fell and is complaining of left hip pain. She was brought in to the ER where further evaluation does reveal a mildly displaced left hip fracture. She is admitted now for further treatment of this. PAST MEDICAL HISTORY: She has been admitted into our hospital 3 times in the last couple of months. She has got a stent placed by Dr. Zhang here in late August or in September. She came in with atrial fibrillation with rapid ventricular response, CHF and then she came back in with pulmonary hypertension and CHF. She has a history of mitral valve replacement, hypertension, reflux, hyperlipidemia, arthritis, pulmonary hypertension, dementia and atrial fibrillation. PAST SURGICAL HISTORY: Laminectomy for degenerative disc disease, mitral valve replacement in 2002, appendectomy, laparoscopic cholecystectomy, hysterectomy and left partial knee replacement. ALLERGIES: None known. HOME MEDICATIONS: Include Ativan 0.5 mg 4 times a day p.r.n. anxiety, Ambien 5 mg q.h.s. p.r.n. sleep, Benadryl 25 mg q.h.s. p.r.n. sleep, and MiraLax 17 grams in 8 ounces of water or juice daily, potassium chloride 10 mEq once a day, promethazine 25 mg q.6 hours p.r.n. nausea, Bumex 2 mg once a day, levothyroxine 50 mcg once a day, Singulair 10 mg at bedtime, Betapace 120 mg twice a day, aspirin 81 mg once a day, Plavix 75 mg once a day, diltiazem CD 180 once a day, Reglan 10 mg 3 times a day before meals, doxycycline 100 mg twice a day, Flagyl 500 mg 3 times a day, [place] 10/325 q.6 hours p.r.n. pain and losartan 50 mg once a day. SOCIAL HISTORY: She is and retired. HABITS: Never smoked. No alcohol or drugs. FAMILY HISTORY: Mother had CHF and hypertension. Father had CHF. REVIEW OF SYSTEMS: GENERAL: No major weight changes. HEENT: No sinus or allergy problems. RESPIRATORY: Has recent COPD/asthma diagnosis and had been placed on oxygen within the last month. Dr. Cash is her fabric sourcer. CARDIAC: History of valvular heart disease and now coronary artery disease with stent. She has paroxysmal atrial fibrillation, currently controlled. GASTROINTESTINAL: She has had reflux and she has a positive H. pylori test within the last month. She saw Dr. Macedo during the hospitalization. GENITOURINARY: Occasional urinary tract infections. HISTORY AND PHYSICAL [id number] THELMA SEWELL MUSCULOSKELETAL: She has chronic back pain. NEUROLOGIC: No seizures and no migraine headaches. PSYCHIATRIC: She has some anxiety. PHYSICAL EXAMINATION: VITAL SIGNS: Temperature 98.1, pulse 79, respirations 16 and blood pressure 102/51. GENERAL: She does not appear in acute distress. She is awake and alert. HEENT: Grossly within normal limits. NECK: Supple. HEART: Regular rate and rhythm. LUNGS: Fairly clear. ABDOMEN: Soft. She is nauseated. EXTREMITIES: Trace edema. She has pain in the left hip area. LABORATORY DATA: Urinalysis is yellow and clear, trace leukocyte esterase and a few bacteria. CBC with a white count of 7700, hemoglobin 9.9 and hematocrit 31.6. INR 0.99. Basic metabolic panel is all okay except BUN and creatinine are little elevated at 44 and 1.6. Glucose 139. Magnesium a little low at 1.6 and calcium 8.5. Liver enzymes were all okay. ProBNP 4699. X-rays, the patient had several x-rays, but basically, the only thing that was positive was an acute left femoral neck fracture. ASSESSMENT: 1. Acute left femoral neck fracture. 2. History of congestive heart failure with pulmonary hypertension. 3. Chronic obstructive pulmonary disease/asthma. 4. Coronary artery disease. 5. Hypertension. 6. Mild dementia. PLAN: She is admitted. Dr. Singh was consulted. Plan is for work ORIF of the fractured hip tomorrow. Other tests and procedures as warranted. TRANSINT:[id number] Voice Confirmation ID: [id number] DOCUMENT ID: [id number] LUDIN VILLAFUERTE MD at 0819 CC: [id number] DICTATION DATE: 11/16/162115 CAR TRIMMER: 11/16/16 5701 ADM IN [facility] [address] [id number]
--- NOTE | 2016-11-17 09:56 | NUR ---
Is the patient Alert and Oriented? Yes 0 * How many steps to enter\exit or inside your home? ELEVATOR 0 * PCP DR. VILLAFUERTE 0 * Pharmacy [facility] [address] 0 * Preadmission Environment Assisted Living 0 * Facility Name [facility] 0 * ADLs Independent 0 * Equipment Walker 0 * Other Equipment O2 PROVIDED BY [facility] PATIENT 0 * List name and contact numbers for known caregivers / representatives who currently or will assist patient after discharge: FRIEND: JOHNNIE WEI [phone] 0 * Community resources currently utilized Home Health 0 * Please name any agencies selected above. [facility] 0 * Additional services required to return to the preadmission environment? No 0 * Can the patient safely return to the preadmission environment? Yes 0 * Has this patient been hospitalized within the prior 30 days at any hospital? Yes PATIENT IS AWAKE AND ALERT. SHE STATES SHE LIVES AT [facility]. SHE STATES SHE DOES NOT HAVE FAMILY HERE IN [place] BUT HAS A DEAR FRIEND, JOHNNIE WEI, THAT LIVES AT THE [facility]. HER PCP IS DR. VILLAFUERTE./ SHE GETS HER MEDS FROM [facility]. PATIENT STATES SHE HAS A WALKER AND O2 PROVIDED BY [facility] PATIENT. PATIENT IS CURRENT WITH [facility]. PATIENT STATES THERE IS AN ELEVATOR TO ENTER HER BUILDING AND NO STEPS. PATIENT INSISTS THAT SHE WANTS TO GO FOR SURGERY TO FIX HER HIP TODAY. PATIENT STATES SHE DOES NOT CARE ABOUT HER BREATHING AND SHE DOES NOT WANT LIFE SUPPORT. I ENCOURAGED HER TO TALK WITH HER DOCTOR. NO DISCHARGE NEEDS IDENTIFIED AT THIS TIME. CM TO FOLLOW.
--- NOTE | 2016-11-17 13:37 | NUR ---
ART LINE PLACED PER FREDY ZUÑIGANA ASST BY [id number] SPINAL BLOCKED PLACED PER @[address] ESPINOZA AT 6330
--- NOTE | 2016-11-17 14:29 | NUR ---
PT BACK TO ROOM INTUBATED. REASSESSED. LEVOPHED ADDED TITRATED TO KEEP BP GREATER THAN 90 SYSTOLIC. DOPAMINE 20 MCG INFUSING, DOBUTAMINE 10MCG INFUSING DECREASED PER ANESTHESIA.
--- NOTE | 2016-11-17 14:40 | NUR ---
VENT SETTINGS AC RATE 15 TV 550 FIO2 100 PEEP 7. 1/2 NS AT 75 CC/HR. NGT TO NARE CONNECT TO LOW INTERMITTENT SUCTION.
--- NOTE | 2016-11-17 14:52 | NUR ---
ABG'S DRAWN X 2 IN OR. FIRST SET CA 1310. SECOND SET AT 1353. PT INTUBATED AT 1402 PER D.JOVI WICK
--- NOTE | 2016-11-17 14:55 | NUR ---
PT TRANSPORTED TO ICU WITH AMBU AND O2
--- NOTE | 2016-11-17 16:00 | NUR ---
ANESTHESIA HERE CHECKING ON PT.
--- NOTE | 2016-11-17 16:54 | NUR ---
DR KWADWO ELMORE.
--- NOTE | 2016-11-17 17:07 | NUR ---
DECREASED PROPROFOL TO 29 MCG/KG/MIN BP 91/35.
--- NOTE | 2016-11-17 19:15 | NUR ---
REPORT RECIEVED, SHIFT ASSESSMENT COMPLETE, PT IS SEDATED ON VENT, RESPONDS TO PAINFUL STIMULI, ON 100% FIO2 WITH 98% O2 SAT. CRACKLES HEARD IN B/L UPPER LOBES, DIMINISHED IN B/L LOWER LOBES, S1S2, CM-NSR, PATENT LEFT SC CVL...SEE FLOW SHEET....PATENT NGT TO LIWS WITH BROWN DRAINAGE NOTED, PLACEMENT CHECKED WITH SM AIR BOLUS, PATENT F/C WITH CONCENTRATED UOP, DRSG TO LEFT HIP IS CDI, EDEMA NOTED IN B/L LOWER EXTREMETIES, ALL PPP, WILL CON'T TO MONITOR
--- NOTE | 2016-11-17 21:04 | NUR ---
NO VISITORS AT THIS TIME, REPOSITIONED FOR COMFORT, WILL CON'T TO MONITOR
--- NOTE | 2016-11-17 23:01 | NUR ---
REPOSITIONED FOR COMFORT, ORAL CARE PROVIDED, REASSESSMENT COMPLETE, NO CHANGES NOTED
[2016-11-18] VITALS (45 sets, daily range): BP systolic 84–138; BP diastolic 35–81
--- NOTE | 2016-11-18 01:04 | NUR ---
REPOSITIONED FOR COMFORT, ORAL CARE PROVIDED,
--- NOTE | 2016-11-18 03:00 | NUR ---
REASSESSMENT COMPLETE, PT NOW FOLLOWING COMMANDS, NO OTHER CHANGES NOTED, REPOSITIONED FOR COMFORT, ORAL CARE PROVIDED
[2016-11-18 04:50] LABS: BASOPHILS 0.2 % (0.0-2.0); EOSINOPHILS 0.2 % (0-7); IMMATURE GRANULOCYTES 0.3 % (0-5); LYMPHOCYTES 12.9 % (15-50); MCH 30.3 pg (26.0-34.0); MCHC 32.3 g/dL (31.0-37.0); MEAN PLATELET VOLUME 11.1 fL (7.4-10.4); MONOCYTES 7.6 % (2-11); NEUTROPHILS 78.8 % (40-80); RDW 14.3 % (11.5-14.5)
[2016-11-18 04:52] LABS: CALCIUM 7.9 mg/dL (8.5-10.1); CARBON DIOXIDE 24.6 mmol/L (21.0-32.0); HEMATOCRIT 25.4 % (36.0-48.0); HEMOGLOBIN 8.2 g/dL (12-16); MAGNESIUM - SERUM 1.4 mg/dL (1.8-2.4); MCV 93.7 fL (80.0-100.0); PHOSPHOROUS 2.9 mg/dL (2.5-4.9); PLATELET COUNT 152 10x3/uL (130-400); POTASSIUM - SERUM 3.6 mmol/L (3.5-5.1); RBC 2.71 10x6/uL (4.00-5.40); WBC 6.6 10x3/uL (4.8-10.8)
[2016-11-18 04:54] LABS: CREATININE - SERUM 1.7 mg/dL (0.6-1.3)
--- NOTE | 2016-11-18 05:08 | NUR ---
REPOSITIONED FOR COMFORT, ORAL CARE PROVIDED
--- NOTE | 2016-11-18 07:00 | OP ---
PATIENT NAME: THELMA SEWELL MEDICAL RECORD: [id number] :29 LOCATION:.[facility] D.2303 ADMISSION DATE:11/16/16 SURGEON: VIANCA ESPINOZA MD DATE OF OPERATION: 11/17/2016 PREOPERATIVE DIAGNOSIS: Left displaced femoral neck fracture. POSTOPERATIVE DIAGNOSIS: Left displaced femoral neck fracture. PROCEDURE PERFORMED: Left hip hemiarthroplasty. SURGEON: Elias Espinoza MD. ANESTHESIA: Spinal. ESTIMATED BLOOD LOSS: Minimal blood loss. CONDITION: She tolerated the procedure well, surgically. She was transferred back to the recovery room and then she was going to be transferred back to the ICU at the termination of the procedure. INDICATIONS: This is an 86-year-old female who fell at her residence yesterday, presented with significant left hip pain. This ultimately was diagnosed as a left femoral neck fracture. She additionally ended up having some respiratory distress and had been transferred to the unit. It was felt that she could be fixed day, but it would still be necessary to be in the unit for monitoring. OPERATIVE REPORT: The patient was taken to the operating room and placed supine position, lines were obtained. She did have a spinal anesthesia placed. Once her spinal anesthesia was in position, she was then placed in a lateral position with her left hip up. She received Ancef 2 grams per protocol. I then proceeded to have her prep in the standard fashion. This was followed by secondary ChloraPrep and Ioban dressing placement. A lateral incision was made. This was taken down to the IT band. The IT band was split. Put a Charnley retractor. The anterior portion of the gluteus medius and capsule were taken down. I made a cleanup femoral neck cut and then removed the femoral head as well. The acetabulum was cleared of debris. I then took her leg off of side of the bed into a bag and then use a broach to business services sales representative up to a cookie cutter, a canal finder and broaches up to 16. X-ray was taken. She did looks slightly long, I therefore went ahead and placed a final 16 stem with the -3 head. She was reduced, she reduced well. She was irrigated again, following which, 2 JuggerKnot suture anchors were used to place the gluteus medius capsule back on the trochanter. I then closed after this with #1 barbed PDS. I then closed with 2-0 Vicryl and alina. She tolerated this well, was awakened and transferred to the recovery room in stable condition, having tolerated the procedure well. TRANSINT:[id number] Voice Confirmation ID: [id number] DOCUMENT ID: [id number] OPERATIVE REPORT [id number] THELMA SEWELL, VIANCA BARBA MD at 0700 CC: [id number] DICTATION DATE: 11/17/16 140 OPAL POLISHER: 11/17/162031 ADM IN [facility] [address] [place] [address]
--- NOTE | 2016-11-18 19:30 | NUR ---
REPORT RECIEVED, SHIFT ASSESSMENT COMPLETE, PT IS SEDATED ON VENT, AROUSES TO VOICE, ON 40% FIO2 WITH 100% O2 SAT. CRACKLES HEARD IN B/L UPPER LOBES, DIMINISHED IN B/L LOWER LOBES, S1S2, CM-NSR, PATENT LEFT SC CVL...SEE FLOW SHEET...PATENT NGT WITH GREEN DRAINAGE NOTED, ABDOMEN IS SOFT AND ROUND WITH HYPO BS, PATENT RIGHT RADIAL A-LINE, GOOD WAVEFORM, PATENT F/C WITH CONCENTRATED UOP, EDEMA NOTED, ALL PPP, VSS, WILL CON'T TO MONITOR
--- NOTE | 2016-11-18 21:00 | NUR ---
REPOSITIONED FOR COMFORT, ORAL CARE PROVIDED, NO VISITORS AT THIS TIME,
--- NOTE | 2016-11-18 23:00 | NUR ---
REASSESSMENT COMPLETE, NO CHANGES NOTED, REPOSITIONED FOR COMFORT, ORAL CARE PROVIDED
[2016-11-19] VITALS (22 sets, daily range): BP systolic 76–151; BP diastolic 38–62
--- NOTE | 2016-11-19 01:00 | NUR ---
REPOSITIONED FOR COMFORT, ORAL CARE PROVIDED
--- NOTE | 2016-11-19 03:00 | NUR ---
REASSESSMENT COMPLETE, NO CHAGNES NOTED, RAD IN ROOM FOR DAILY CXR, REPOSITIONED FOR COMFORT, ORAL CARE PROVIDED
[2016-11-19 04:00] LABS: BASOPHILS 0 % (0.0-2.0); EOSINOPHILS 0 % (0-7); HEMATOCRIT 23.6 % (36.0-48.0); HEMOGLOBIN 7.7 g/dL (12-16); IMMATURE GRANULOCYTES 0.1 % (0-5); LYMPHOCYTES 12.1 % (15-50); MCH 30.1 pg (26.0-34.0); MCHC 32.6 g/dL (31.0-37.0); MCV 92.2 fL (80.0-100.0); MONOCYTES 6.3 % (2-11); NEUTROPHILS 81.5 % (40-80); PLATELET COUNT 144 10x3/uL (130-400); RBC 2.56 10x6/uL (4.00-5.40); WBC 6.8 10x3/uL (4.8-10.8)
[2016-11-19 04:20] LABS: ALBUMIN 1.8 g/dL (3.4-5.0); ANION GAP 12.5 mmol/L (8-16); BILIRUBIN - TOTAL 0.52 mg/dL (0.2-1.3); CALCIUM 7.1 mg/dL (8.5-10.1); CARBON DIOXIDE 23.8 mmol/L (21.0-32.0); CREATININE - SERUM 1.6 mg/dL (0.6-1.3); MAGNESIUM - SERUM 1.3 mg/dL (1.8-2.4); PHOSPHOROUS 3.4 mg/dL (2.5-4.9); POTASSIUM - SERUM 3.3 mmol/L (3.5-5.1); PROTEIN - SERUM 4.5 g/dL (6.4-8.2)
--- NOTE | 2016-11-19 05:00 | NUR ---
COMPLETE BATH AND LINEN CHANGE
--- NOTE | 2016-11-19 09:41 | NUR ---
Nutrition follow-up: Pt NPO due to intubation, sedation at this time. NGT -> LIWS with green drainage Hypoactive BS Labs Wt: 171# Recommend starting TF of Pulmocare @ 20 ml/hr with gradual increase to goal rate of 45 ml/hr. RDN following.
--- NOTE | 2016-11-19 10:40 | NUR ---
0800 AM ASSESMENT IS COMPLETE SEE FLOW SHEET FOR FINDINGS.. PT IS SEDATED ON THE VENT.. ORALLY INTUBATED.. CVL ON LEFT... DRESSING ON THE LEFT HIP CDI.. PEDAL PULSES ARE PALPABLE.. 0900 FAMILY MEMBER IN TO SEE PT AND UPDATE IS GIVEN.. 1000 RESPIRATORY IN AND SPUTUM CULTURE IS OBTAINED FOR C AND S
--- NOTE | 2016-11-19 12:08 | NUR ---
1200 FAMILY MEMBER IN TO SEE PT.. UPDATE IS GIVEN ...
--- NOTE | 2016-11-19 12:19 | NUR ---
1838 PASSWORD SET UP WITH DAUGHTER.. 247
--- NOTE | 2016-11-19 14:25 | NUR ---
WOUND CARE CALLED TO ASSESS OPEN WOUND ON LEFT UPPER ARM. NOTED AN OPEN WOUND APPEARING AN OPEN SKIN TEAR MEASURING 6CM X 4.5CM X 1CM X 1.5CM FROM 5-7 OCLOCK. ABLE TO VIEW TENDON/MUSCLE IN LOWER AREA OF WOUND. LOOSELY APPLIED AN OPEN 4X4 SATURATED IN NORMAL SALINE TO OPEN AREA, COVERED WITH DRY 4X4S AND LOOSELY WRAPPED WITH KERLIX TO SECURE. NOTED ANOTHER SKIN TEAR TO LEFT FOREARM MEASURING 2CM X 2.5CM X 0.2CM. COVERED WITH ADAPTIC, 4X4S AND SECURED WITH KERLIX. RECOMMEND DRESSING CHANGES FOR UPPER ARM TWICE/DAY. WILL CONTINUE TO MONITOR.
--- NOTE | 2016-11-19 14:38 | NUR ---
1345 DRESSING ON LEFT UPPER ARM REMOVED AT THIS TIME.. UNDER THIS CDI DRESSING IS A WOUND THAT IS OPEN AND RAW LOOKING WITH A DEEP HOLE NO BLEEDING NOTED AT THIS TIME.. WOUND CARE NURSE CALLED AND SHE MEASURED THE AREA AND HAS ORDERED TX FOR SITE.. A WET TO DRY DRESSING APPLIED TO THE SITE BY HER USING 4X4 GAUZE AND KERLEX 4 INCHES.... THERE IS A SKIN TEAR ON PTS FOREARM THAT IS SMALL WOUND CARE REDRESSED THAT SITE WITH 4X4 AND KERLEX.. 1430 NGT ADVANCED CHECK WITH AIR BOLUS....
--- NOTE | 2016-11-19 17:57 | NUR ---
1500 VISITOR AT THE BEDSIDE.. ROWENA ALEGRIA UPDATE IS GIVEN.. 1545 DR BURKETT ORDERS RECIEVED AND FIRST UNIT PRBC INITIATED... INFUSING INTO THE LEFT CVL.. 1630 I AND O DONE PT CONTINUES SEDATED WITH DIPRIVAN AND IS ON THE VENT.. 1730 PRBC CONTINUE TO INFUSE WIHTOUT REACTION NOTED AT THIS TIME..
--- NOTE | 2016-11-19 18:39 | NUR ---
1814 FIRST UNIT PRBC THRU INFUSING... BUMNEX GIVEN... WITHOUT VISITORS INTO SEE PT
--- NOTE | 2016-11-19 19:00 | NUR ---
REPORT RECIEVED, SHIFT ASSESSMENT COMPLETE, PT IS SEDATED ON VENT, AROUSES TO VOICE, ON 40% FIO2 WITH 95% O2 SAT. CRACKLES HEARD IN B/L UPPER LOBES, DIMINISHED IN B/L LOWER LOBES, S1S2, CM-NSR, PATENT NGT WITH GREEN DRAINAGE NOTED, PATENT LEFT SC CVL...SEE FLOW SHEET...ABDOMEN IS SOFT AND ROUND WITH HYPO BS, RIGHT HANNAH WITH GOOD WAVEFORM EXTREMETY IS PINK AND WARM, PATENT F/C WITH C/Y UOP, EDEMA NOTED IN ALL EXTREMETIES, ALL PPP, VSS, WILL CON'T TO MONITOR
--- NOTE | 2016-11-19 21:00 | NUR ---
COMPLETE BATH AND LINEN CHANGE, PT TOLERATED WELL
--- NOTE | 2016-11-19 23:00 | NUR ---
REASSESSMENT COMPLETE, NO CHANGES NOTED, PT REPOSITIONED FOR COMFORT, ORAL CARE PROVIDED, WILL CON'T TO MONITOR
[2016-11-20] VITALS (26 sets, daily range): BP systolic 89–159; BP diastolic 38–142
--- NOTE | 2016-11-20 01:00 | NUR ---
REPOSITIONED FOR COMFORT, ORAL CARE PROVIDED
--- NOTE | 2016-11-20 03:05 | NUR ---
REASSESSMENT COMPLETE, NO CHANGES NOTED, PT RESTING AT THIS TIME, REPOSITIONED FOR COMFORT, ORAL CARE PROVIDED
[2016-11-20 03:15] LABS: BASOPHILS 0 % (0.0-2.0); EOSINOPHILS 0 % (0-7); IMMATURE GRANULOCYTES 0.5 % (0-5); LYMPHOCYTES 11.6 % (15-50); MCH 29.7 pg (26.0-34.0); MCHC 33.8 g/dL (31.0-37.0); MEAN PLATELET VOLUME 10.7 fL (7.4-10.4); MONOCYTES 7.1 % (2-11); NEUTROPHILS 80.8 % (40-80); PLATELET COUNT 132 10x3/uL (130-400); RDW 15.8 % (11.5-14.5); WBC 6.3 10x3/uL (4.8-10.8)
[2016-11-20 03:17] LABS: HEMATOCRIT 30.2 % (36.0-48.0); HEMOGLOBIN 10.2 g/dL (12-16); RBC 3.43 10x6/uL (4.00-5.40)
[2016-11-20 03:26] LABS: ANION GAP 14.6 mmol/L (8-16); CALCIUM 7.5 mg/dL (8.5-10.1)
[2016-11-20 03:27] LABS: CREATININE - SERUM 1.1 mg/dL (0.6-1.3); POTASSIUM - SERUM 2.6 mmol/L (3.5-5.1)
--- NOTE | 2016-11-20 05:00 | NUR ---
REPOSITONED FOR COMFORT, ORAL CARE PROVIDED
--- NOTE | 2016-11-20 09:28 | NUR ---
Nutrition follow-up: Pt remains intubated, sedated. Pulmocare started @ 20 ml/hr Labs reviewed Recommend advancing TF 10 ml every 10-12 hours to goal rate of 50 ml/hr RDN following.
--- NOTE | 2016-11-20 19:00 | NUR ---
PT AWAKE AND ALERT, ANSWERS QUESTIONS APPROPRIATELY. VSS, NO C/O PAIN AT THIS TIME. PT REPOSITIONED FOR COMFORT. SHALLOW RESPIRATIONS, LUNG SOUNDS CRACKLES. COUGH/DB WITH WEAK EFFORT. ORAL CARE ADM. VOICES NO FURTHER NEEDS AT THIS TIME. CALL LIGHT WITHIN PT REACH. ROOM VISIBLE FROM NURSES STATION. CPOC.
--- NOTE | 2016-11-20 21:30 | NUR ---
NO VISITORS AT THIS TIME. VSS, NO C/O PAIN. PT REPOSITIONED WITH BONY PROMINENCES BRIDGED. VOICES NO FURTHER NEEDS. CALL LIGHT WITHIN REACH, CPOC.
--- NOTE | 2016-11-20 23:00 | NUR ---
REASSESSMENT COMPLETE, SEE FLOWSHEET FOR ALL FINDINGS. NO ACUTE CHANGES AT THIS TIME. COUGH/DB WITH WEAK EFFORT. ORAL CARE ADM. VSS. PT REPOSITIONED FOR COMFORT. ROOM VISIBLE FROM NURSES STATION. CPOC.
[2016-11-21] VITALS (29 sets, daily range): BP systolic 127–169; BP diastolic 53–73
--- NOTE | 2016-11-21 02:00 | NUR ---
LT ARM WET TO DRY DSG CHANGED. PT REPOSITIONED FOR COMFORT. VSS. VOICES NO FURTHER NEEDS AT THIS TIME. CPOC.
[2016-11-21 03:39] LABS: BASOPHILS 0.1 % (0.0-2.0); EOSINOPHILS 0 % (0-7); HEMATOCRIT 33.5 % (36.0-48.0); HEMOGLOBIN 11.3 g/dL (12-16); IMMATURE GRANULOCYTES 0.4 % (0-5); MCH 30.1 pg (26.0-34.0); MCHC 33.7 g/dL (31.0-37.0); MCV 89.3 fL (80.0-100.0); MEAN PLATELET VOLUME 11.5 fL (7.4-10.4); MONOCYTES 9.3 % (2-11); NEUTROPHILS 81.2 % (40-80); RBC 3.75 10x6/uL (4.00-5.40); RDW 16.5 % (11.5-14.5); WBC 7.7 10x3/uL (4.8-10.8)
[2016-11-21 03:43] LABS: PLATELET COUNT 166 10x3/uL (130-400)
[2016-11-21 03:51] LABS: ANION GAP 15.1 mmol/L (8-16); CALCIUM 8.1 mg/dL (8.5-10.1); MAGNESIUM - SERUM 1.3 mg/dL (1.8-2.4); PHOSPHOROUS 2.8 mg/dL (2.5-4.9)
[2016-11-21 03:54] LABS: CREATININE - SERUM 0.8 mg/dL (0.6-1.3); POTASSIUM - SERUM 3.1 mmol/L (3.5-5.1)
--- NOTE | 2016-11-21 07:00 | NUR ---
REC'D CARE OF PT. A&O X3.
--- NOTE | 2016-11-21 08:15 | NUR ---
PIV DC'D AT RIGHT HAND AND AT LEFT FOREARM.
--- NOTE | 2016-11-21 09:00 | NUR ---
FAMILY AT BEDSIDE. UPDATED.
--- NOTE | 2016-11-21 09:41 | NUR ---
REASSESSED PAIN. NO CHANGES. STILL 07/27. "ALL OVER'. PAIN MEDS ADMN.
--- NOTE | 2016-11-21 10:57 | NUR ---
REASSESSMENT COMPLETED PER FLOW SHEET. NO ACUTE CHANGES.
--- NOTE | 2016-11-21 12:06 | NUR ---
DR. ESPINOZA AND DR. BURKETT AT BEDSIDE. I TOOK DRSG OFF OF LEFT UPPER ARM WOUND. DAUGHTER AT BEDSIDE SAID THAT WOUND PROB OCCURED DURING HER FALL.
--- NOTE | 2016-11-21 13:07 | NUR ---
REDRESSED LEFT UPPER ARM WOUND WET TO DRY PER ORDERS.
--- NOTE | 2016-11-21 13:26 | NUR ---
FLUTTER VALVE BEING USED BY PT. PER KEELEY RT. PULLS 1250 ON IS WITH KEELEY ASSISTING.
--- NOTE | 2016-11-21 19:10 | NUR ---
REPORT RECVD. CARE ASSUMED. INITIAL ASSMNT COMPLETED. SEE FLOWSHEET FOR ALL FINDINGS. AWAKE AND AOX4. SLOW TO RESPOND AT TIMES. PERRLA. SR ON THE MONITOR., AFEBRILE. LUNGS COARSE THRU OUT. SPO2 97% ON O2 AT 2 LPM NC. DENIES NEEDS/DISCOMFORT. HOB UP. C/L IN REACH. CONT CURRENT POC.
--- NOTE | 2016-11-21 21:00 | NUR ---
HS MEDS GIVEN CRUSHED NO DIFF. REPOSITIONED FOR COMFORT. HOB UP. VSS. CONT POC.
--- NOTE | 2016-11-21 23:10 | NUR ---
REASSESSMENT COMPLETED. SEE FLOWSHEET FOR ALL FINDINGS. NO ACUTE CHANGES. CONT CURRENT POC.
[2016-11-22] VITALS (24 sets, daily range): BP systolic 64–166; BP diastolic 49–95
--- NOTE | 2016-11-22 01:30 | NUR ---
TURNED AND REPOSITIONED. PRN PAIN MEDS PROVIDED FOR C/O DISCOMFORT. HOB UP. C/L IN REACH. CONT POC.
--- NOTE | 2016-11-22 03:10 | NUR ---
REASSESSMENT COMPLETED. SEE FLOWSHEET FOR ALL FINDINGS. VSS. NO SIG CHANGES. T AND R. SR ON THE MONITOR. HOB UP. C/L IN REACH. CONT CURRENT POC.
[2016-11-22 05:25] LABS: BASOPHILS 0.1 % (0.0-2.0); EOSINOPHILS 0 % (0-7); HEMATOCRIT 36.3 % (36.0-48.0); HEMOGLOBIN 11.9 g/dL (12-16); IMMATURE GRANULOCYTES 0.8 % (0-5); LYMPHOCYTES 11.8 % (15-50); MCH 29.6 pg (26.0-34.0); MCHC 32.8 g/dL (31.0-37.0); MCV 90.3 fL (80.0-100.0); MEAN PLATELET VOLUME 10.9 fL (7.4-10.4); MONOCYTES 10.5 % (2-11); NEUTROPHILS 76.8 % (40-80); PLATELET COUNT 168 10x3/uL (130-400); RBC 4.02 10x6/uL (4.00-5.40); RDW 16.2 % (11.5-14.5); WBC 7.9 10x3/uL (4.8-10.8)
--- NOTE | 2016-11-22 05:30 | NUR ---
TURNED AND REPOSITIONED. PO FLUIDS AND ORAL CARE PROVIDED. VSS. NO DISTRESS. CONT CURRENT POC.
[2016-11-22 05:42] LABS: ANION GAP 11.9 mmol/L (8-16); CALCIUM 8.4 mg/dL (8.5-10.1); CARBON DIOXIDE 30.1 mmol/L (21.0-32.0); CREATININE - SERUM 0.8 mg/dL (0.6-1.3); MAGNESIUM - SERUM 1.4 mg/dL (1.8-2.4); PHOSPHOROUS 3.1 mg/dL (2.5-4.9)
--- NOTE | 2016-11-22 07:00 | NUR ---
REC'D CARE OF PT. A&O X3.
--- NOTE | 2016-11-22 07:47 | NUR ---
CL LIQUID TRAY SERVED.
--- NOTE | 2016-11-22 10:24 | NUR ---
REassessment COMPLETED PER FLOW SHEET. NO ACUTE CHANGES.
--- NOTE | 2016-11-22 10:27 | NUR ---
REASSESSMENT COMPLETED PER FLOW SHEET. NO ACUTE CHANGES.
--- NOTE | 2016-11-22 13:36 | NUR ---
DRSG CHANGED AT LEFT UPPER ARM. WET TO DRY.
--- NOTE | 2016-11-22 14:30 | NUR ---
RESTING WITH EYES CLOSED. RESPONSE PROPERLY TO VERBAL STIMULI. DENIES NEEDS.
--- NOTE | 2016-11-22 15:02 | NUR ---
REASSESSMENT COMPLETED PER FLOW SHEET. NO ACUTE CHANGES.
--- NOTE | 2016-11-22 17:10 | NUR ---
CM went to speak with patient regarding discharge plans. She would like to rest. Will revisit 11/23/16. May need acute rehab eval or snf stay prior to home. She was extubated 11/20/16. Placed on nasal oxygen at 4/5 L which has been weaned to 2/L AT present. Had physical therapy order 11/17/16. PT was held as she was on the vent. Will need a new physical therapy order. NOAH spoke with the primary nurse, Warren. Diet advanced to cl liquids and being tolerated well. Wound care consult for left upper arm- wet to dry drsg. Discussed w/ primary nurse.
--- NOTE | 2016-11-22 19:15 | NUR ---
REPORT RECIEVED, SHIFT ASSESSMENT COMPLETE, PT IS ALERT AND ORIENTED, ON 2L NC WITH 97% O2 SAT. LUNGS CLEAR IN B/L UPPER LOBES, DIMINISHED IN B/L LOWER LOBES, S1S2, CM-NSR, PATENT LEFT SC CVL WITH 1/2NS INFUSING VIA PUMP, DRSG TO LEFT UPPER ARM WOUND IS CDI, ABDOMEN IS SOFT AND ROUND WITH ACTIVE BS, PATENT F/C WITH CONCENTRATED UOP, EDEMA NOTED IN ALL EXTREMTIES, ALL PPP, VSS, CALL LIGHT IN REACH
--- NOTE | 2016-11-22 21:00 | NUR ---
NO VISITORS AT THIS TIME, WILL CON'T TO MONITOR
--- NOTE | 2016-11-22 23:00 | NUR ---
REASSESSMENT COMPLETE, NO CHANGES NOTED, PT RESTING AT THIS TIME, NO NEEDS NOTED, REPOSITIONED FOR COMFORT, WILL CON'T TO MONITOR
[2016-11-23] VITALS (17 sets, daily range): BP systolic 98–139; BP diastolic 47–72
--- NOTE | 2016-11-23 01:00 | NUR ---
REPOSITIONED FOR COMFORT, WILL CON'T TO MONITOR
--- NOTE | 2016-11-23 03:01 | NUR ---
REASSESSMENT COMPLETE, NO CHANGES NOTED, PT RESTING AT THIS TIME, REPOSITIONED FOR COMFORT, RAD IN ROOM FOR DAILY CXR
[2016-11-23 04:30] LABS: BASOPHILS 0.1 % (0.0-2.0); EOSINOPHILS 0 % (0-7); HEMATOCRIT 35.8 % (36.0-48.0); HEMOGLOBIN 11.6 g/dL (12-16); IMMATURE GRANULOCYTES 1.5 % (0-5); LYMPHOCYTES 14.7 % (15-50); MCH 29.7 pg (26.0-34.0); MCHC 32.4 g/dL (31.0-37.0); MCV 91.6 fL (80.0-100.0); MONOCYTES 11.5 % (2-11); NEUTROPHILS 72.2 % (40-80); RBC 3.91 10x6/uL (4.00-5.40); WBC 7.9 10x3/uL (4.8-10.8)
[2016-11-23 04:36] LABS: PLATELET COUNT 203 10x3/uL (130-400)
--- NOTE | 2016-11-23 05:00 | NUR ---
COMPLETE BATH AND LINEN CHANGE, PT TOLERATED WELL
[2016-11-23 06:06] LABS: ANION GAP 12.2 mmol/L (8-16); CALCIUM 8.2 mg/dL (8.5-10.1); CARBON DIOXIDE 29.3 mmol/L (21.0-32.0); MAGNESIUM - SERUM 1.5 mg/dL (1.8-2.4)
[2016-11-23 06:10] LABS: PHOSPHOROUS 4.2 mg/dL (2.5-4.9); POTASSIUM - SERUM 3.5 mmol/L (3.5-5.1)
--- NOTE | 2016-11-23 09:47 | NUR ---
Nutrition follow-up: Diet just advanced to regular as tolerated Labs reviewed Wt: 166# Will provide food choices with selective menus and honor food preferences. RDN will order Ensure with meals. Following.
--- NOTE | 2016-11-23 10:04 | NUR ---
0800 AM ASSESMENT IS COMPLETE SEE FLOW SHEET FOR FINDINGS.. PT IS AWAKE AND ALERT.. THERE IS A CDI DRESSING IN PLACE ON HER LEFT HIP.. THE CVL IS IN HER LEFT SC THE FLUID INFUSING 1/2 NS AT 50CC.. RIGHT RADIAL A LINE IN PLACE WITH GOOD WAVE FORM ON THE MONITOR.. BP IS MODERATLY LOW AT THIS TIME.. HEART RATE IS A FIB ON THE MONITOR.. PT IS SOMEWHAT CONFUSED TO TIME AND DATE SHE DID KNOW SHE IS IN THE HOSPITAL.. 0830 CLEAR LIQUID DIET IS SERVED TO PT AND MEAL EATEN WITH ASSISTANCE.. MEDS ARE GIVEN AND PT REQUEST THAT THE PILLS BE CRUSHED AND PLACED IN APPLESAUCE.. THIS IS DONE AND PT ABLE TO TAKER WITHOUT DIFFICULTY..SE CROSS APN IN TO SEE PT FOR DR GUZMÁN .. UPDATE GIVEN AND INFORMED THAT PT IS NOT ON CARDIZEM PO IORDER RECIEVED FOR THE CARDIZEM.. 0900 FAMILY IN TO SEE PT AND UPDATE IS GIVEN..
--- NOTE | 2016-11-23 12:03 | NUR ---
Patient resting in bed. CM discussed present status & ask what her plan is when she is ready for discharge. She would like to go to rehab. She does not know if she could tolerate 3 hours of therapy. She would like to go to [facility] if not appropriate for acute rehab. Advised CM would assist w/ sending referral. Explained Medicare coverage for skilled rehab services. Advised the facility would advise her and keep her updated. Cm spoke w/ primary nurse, Homa. Physical therapy was reordered. Primary will also request wound care nurse to re-eval patient's forearm. Patient is alert and oriented x4. She is ready to start physical therapy.
--- NOTE | 2016-11-23 12:55 | NUR ---
1200 LUNCH SERVED AND PT ASSISTED WITH MEAL REGULAR DIET ATE WITHOUT DIFFICULTY.. NO VISITORS AT THIS TIME... 1230 RIGHT RADIAL A LINE DCd AT THIS TIME.. PRESSURE DRESSING APPLIED..
--- NOTE | 2016-11-23 14:08 | NUR ---
1315 DRESSING ON LEFT UPPER ARM CHANGE .. DR TEJADA IN TO SEE PT AND PUPPER ARM AREA SHOWN TO HIM WITHOUT DRESSING.. SITE DRESSED WITH WET TO DRY DRESSING.. 1345 PHYSICAL THERAPY IN TO SEE PT.. PT [id number] OOB TO THE CHAIR BY PHYSICAL THERAPY.. 1400 OXYCODONE 10 MG GIVEN TO PT FOR C/O PAIN AFTER TRANSFER TO CHAIR.. DR MITTAL IN TO SEE PT AND UPDATE IS GIVEN
--- NOTE | 2016-11-23 16:12 | NUR ---
1425 PHYSICAL THERAPY IN TO ASSIST PT BACK TO THE BED.. 1500 WITHOUT VISITORS.. 1600 REPORT CALLED AND PT TRANSFEREDE TO ROOM 2230... TRASPOERTED VIA BED..
--- NOTE | 2016-11-23 19:10 | NUR ---
PATIENT SITTING UP IN BED TAKING BREATHING TREATMENT. PAIN MEDS GIVEN. DRESSING TO LEFT ARM CHANGED. DR. ALEJANDRA TO PUT WOUND VAC POSSIBLY TOMORROW. PATIENT CAREY AND IV INTACT. CALL LIGHT WITHIN REACH.
--- NOTE | 2016-11-24 03:47 | NUR ---
PT IN BED WITH NO DISTRESS. AIDS IN ROOM BATHING AT THIS TIME. SIDE RAILS ARE UP X 2. BED IS LOW. CALL LIGHT IS WITHIN REACH.
[2016-11-24 04:00] VITALS: BP 105/55
[2016-11-24 06:01] LABS: BASOPHILS 0.1 % (0.0-2.0); EOSINOPHILS 0 % (0-7); HEMATOCRIT 34.7 % (36.0-48.0); IMMATURE GRANULOCYTES 2.2 % (0-5); MCH 29.4 pg (26.0-34.0); MCHC 31.7 g/dL (31.0-37.0); MCV 92.8 fL (80.0-100.0); MEAN PLATELET VOLUME 11.9 fL (7.4-10.4); MONOCYTES 11.4 % (2-11); NEUTROPHILS 70.3 % (40-80); PLATELET COUNT 200 10x3/uL (130-400); RBC 3.74 10x6/uL (4.00-5.40); RDW 15.7 % (11.5-14.5); WBC 7.6 10x3/uL (4.8-10.8)
[2016-11-24 06:27] LABS: ANION GAP 12.5 mmol/L (8-16); CALCIUM 8.2 mg/dL (8.5-10.1); CARBON DIOXIDE 28.5 mmol/L (21.0-32.0); CREATININE - SERUM 1.4 mg/dL (0.6-1.3); MAGNESIUM - SERUM 1.6 mg/dL (1.8-2.4)
--- NOTE | 2016-11-24 07:00 | NUR ---
REPORT RECEIVED FROM FOUNDRY WORKER APPRENTICE NURSE. CALL LIGHT IN REACH.
[2016-11-24 08:15] VITALS: BP 114/55
--- NOTE | 2016-11-24 08:57 | NUR ---
ASSESSMENT COMPLETED. ZOFRAN IVP PER C/O NAUSEA AND OXY IR 20 M GPO PER C/O PAIN OF 9. ICE PACE FILLED AND PLACED TO LEFT HIP. BED ALARM TURNED ON. STUDENT NURSES TO GIVE AM MEDS. CALL LIGHT IN REACH. WILL CONTINUE WITH PLAN OF CARE.
--- NOTE | 2016-11-24 09:35 | NUR ---
Rehab Note- Rehab Prescrenn Order received. The patient was evaluated by Physical therapy yesterday & was Max Assist up to chair, will follow the patient at this time & see how the patient does with Physical therapy today. Thank you for this referral! Evelyn Hodgson RN Clinical Liaison, Rehab [facility]
--- NOTE | 2016-11-24 09:38 | NUR ---
AM MEDS ADMINISTERED PER STUDENT NURSE AND INSTRUCTORS.
--- NOTE | 2016-11-24 10:18 | NUR ---
SITTING IN CHAIR PER PT. DEBBY PO. IV TUBING CHANGED PER HOSPITAL POLICY. WANTING TO GO BACK TO BED. WILL NOTIFY PT. WILL ALSO NOTIFY WOUND CARE NURSE ABOUT WOUND VAC BEING HERE.
--- NOTE | 2016-11-24 11:20 | NUR ---
ALETA RN WITH WOUND CARE PLACED WOUND VAC TO LEFT UPPER ARM. PT SLEEPING AT THIS TIME WITH RESPIRATIONS EVEN AND NON LABORED. OXYGEN ON 2L VIA NC. BED ALARM AND SCD'S ON. CAREY PATENT AND DRAINING TO GRAVITY. SRX2 WITH BED IN LOWEST POSITION AND WHEELS LOCKED. CALL LIGHT IN REACH, WILL CONTINUE WITH PLAN OF CARE.
--- NOTE | 2016-11-24 11:48 | NUR ---
WOUND CARE: PER ORDERS BY DR. ALEJANDRA APPLIED WOUND VAC TO WOUND ON LEFT UPPER ARM. WOUND MEASURES 4.5CM X 4.5CM X 1CM X 1CM FROM 12 TO 12 OCLOCK. THERE IS MUSCLE EXPOSED AT BASE OF WOUND. GENTLY CLEANSED WITH NS AND 4X4S AND PATTED SURROUNDING SKIN DRY. APPLIED SKIN BARRIER. CUT ADAPTIC TO FIT BASE OF WOUND TO PROTECT EXPOSED MUSCLE THEN APPLIED BLACK FOAM TO WOUND (2 PIECES). COVERED WITH DRAPE AND APPLIED ANOTHER PIECE OF BLACK FOAM FOR PROTECTION AGAINST TRAC PAD. VAC SETTINGS ARE -125MMHG MOD/CONTINUOUS. PT TOLERATED WELL. NO C/O PAIN. WOUND CARE WILL CONTINUE MONITORING.
[2016-11-24 12:30] VITALS: BP 96/45
--- NOTE | 2016-11-24 12:39 | NUR ---
REGLAN AND OXY IR PO. VISITOR IN ROOM. CALL LIGHT IN REACH.
--- NOTE | 2016-11-24 12:58 | NUR ---
FAMILY MEMBER STATED THAT PATIENT CAME IN THE ER WITH A RING AND EARRINGS. THERE IS NO DOCUMENTATION ABOUT IT IN THE ER NOTES. I CALLED THE ER AND ASKED THE CLOCK AND WATCH HANDS PAINTER ABOUT IT AND SHE SAID SHE WOULD SEE IF ANYTHING CAME OUT.
--- NOTE | 2016-11-24 14:35 | NUR ---
STATES PAIN IS STILL A 10. WILL SEE IF PATIENT CAN HAVE SOMETHING ELSE FOR PAIN.
--- NOTE | 2016-11-24 15:29 | NUR ---
REPORT GIVEN TO CONNIE VENTURA.
[2016-11-24 16:05] VITALS: BP 93/49
--- NOTE | 2016-11-24 17:25 | NUR ---
STATUS REMAINS UNCHGD AT PRESENT.
[2016-11-24 19:00] VITALS: BP 108/56
--- NOTE | 2016-11-24 19:30 | NUR ---
RECIEVED SHIFT REPORT. PT IS LYING IN BED. ALERT AND ORIENTED AND ABLE TO VERBALIZE NEEDS. IV IS PATENT AND FLUIDS ARE RUNNING PER ORDER. CAREY IS DRAINING URINE BY GRAVITY. O2 @ 2 PER NASAL CANNULA. DRESSING TO LEFT HIP C/D/I. WOUND VAC TO LEFT UPPER ARM C/D/I. PT REQUIRES ASSISTANCE TURNING IN BED FOR COMFORT AND SKIN CARE. PT STATES PAIN IS 9/10. NO NEEDS ARE VERBALIZED AT THIS TIME. WILL CONTINUE TO MONITOR. SIDE RAILS ARE UP X 2. BED IS IN LOWEST POSITION. BED ALARM IS ON FOR SAFETY. CALL LIGHT IS WITHIN REACH.
--- NOTE | 2016-11-24 19:58 | CN ---
PATIENT NAME:THELMA SEWELL MEDICAL RECORD: [id number] : 29 LOCATION:D[id number] ADMIT DATE: 11/16/16 ACCOUNT: [id number] CONSULTING PHYSICIAN: JYOTI ALEJANDRA MD REFERRING PHYSICIAN: LUDIN VILLAFUERTE MD DATE OF CONSULTATION: 11/23/2016 Surgical Consultation REASON FOR CONSULTATION: Left upper arm wound. HISTORY OF PRESENT ILLNESS: Ms. Sewell is an 86-year-old female who was admitted to the hospital on November 16. The patient states that she lost consciousness while walking to the bathroom in the middle of the night, she fell and broke her hip. She was admitted to the ER for a hip fracture for which she has subsequently undergone a left hip surgery. She was found to have a full thickness wound in her left arm with exposed muscle and fascia. The wound has been treated with a wet-to-dry dressing. The patient complains of some pain in her left upper extremity at the site of the injury. PAST MEDICAL HISTORY: Coronary artery disease with coronary stents, CHF, hypertension, reflux, hyperlipidemia, arthritis, pulmonary hypertension, dementia and atrial fibrillation. PAST SURGICAL HISTORY: Mitral valve replacement, laminectomy, appendectomy, laparoscopic cholecystectomy, hysterectomy, left partial knee replacement and left hip surgery./ ALLERGIES: No known drug allergies. HOME MEDICATIONS: Ativan, Ambien, Benadryl, MiraLax, promethazine, Bumex, Synthroid, Singulair, Betapace, aspirin, Plavix, diltiazem, Reglan, doxycycline, Flagyl, [place] and losartan. SOCIAL HISTORY: She is retired and a . HABITS: She never smoked. No drugs or alcohol. FAMILY HISTORY: Mother had CHF and hypertension. Father had CHF. REVIEW OF SYSTEMS: Twelve-point review of systems was obtained, pertinent positive and negative as per the HPI. PHYSICAL EXAMINATION: VITAL SIGNS: Temperature 98, heart rate 61, respirations 18, blood pressure 139/49 and pulse ox 96%. GENERAL: This is a cachectic elderly female in moderate distress. HEENT: The extraocular muscles are intact. EAR, NOSE AND THROAT: Poor dentition. RESPIRATORY: She has decreased breath sounds. EARS, NOSE AND THROAT: Mucous membranes are moist. NECK: Supple. HEART: Regular rate and rhythm. LUNGS: Decreased breath sounds bilaterally. ABDOMEN: Soft, nontender and nondistended. CONSULT REPORT [id number] THELMA SEWELL EXTREMITIES: She has ____ in bilateral lower extremities. She has pain in the left hip. She has a full thickness wound on the left upper arm that is approximately 8 cm x 4 cm. There are necrotic skin edges. The underlying muscle and fascia are exposed. There does not appear to be any evidence of infection. There is no erythema at the wound edges and outside of the small amount of necrotic tissue. LABORATORY DATA: Reviewed. Please see electronic medical record for full list of laboratory values. IMPRESSION: An 86-year-old female with extensive medical problems, status post fall with recent left hip fracture surgery, who has a traumatic degloving injury of the left upper arm. PLAN: Consult wound care for wound VAC placement or Xeroform placement to try to establish granulation tissue. OR tomorrow to debride the necrotic wound edges and to attempt delayed wound closure. TRANSINT:[id number] Voice Confirmation ID: [id number] DOCUMENT ID: [id number] JYOTI ALEJANDRA MD at 1958 CC: [id number] DICTATION DATE: 11/24/16 1623 TUBE SKIVER: 11/24/16 1946 ADM IN [id number] [place] [address]
--- NOTE | 2016-11-24 21:08 | NUR ---
SHIFT ASSESSMENT COMPLETED. NIGHT MEDS GIVEN WITH NO PROBLEMS. NO NEEDS ARE VOICED. WILL MONITOR. SIDE RAILS X 2. BED LOW. BED ALARM ON. CALL LIGHT IN REACH.
[2016-11-24 23:59] VITALS: BP 120/60
[2016-11-25 05:03] VITALS: BP 130/60
[2016-11-25 05:27] LABS: ANION GAP 9.3 mmol/L (8-16); CALCIUM 8.2 mg/dL (8.5-10.1); CARBON DIOXIDE 30.2 mmol/L (21.0-32.0); CREATININE - SERUM 1.5 mg/dL (0.6-1.3); MAGNESIUM - SERUM 1.6 mg/dL (1.8-2.4); POTASSIUM - SERUM 4.5 mmol/L (3.5-5.1)
[2016-11-25 05:30] LABS: BASOPHILS 0.1 % (0.0-2.0); EOSINOPHILS 0 % (0-7); HEMOGLOBIN 10.5 g/dL (12-16); IMMATURE GRANULOCYTES 1.8 % (0-5); LYMPHOCYTES 12.8 % (15-50); MCH 30.4 pg (26.0-34.0); MCHC 32.8 g/dL (31.0-37.0); MCV 92.8 fL (80.0-100.0); MEAN PLATELET VOLUME 11.6 fL (7.4-10.4); MONOCYTES 9.7 % (2-11); NEUTROPHILS 75.6 % (40-80); PLATELET COUNT 196 10x3/uL (130-400); RBC 3.45 10x6/uL (4.00-5.40); RDW 15.7 % (11.5-14.5); WBC 7.2 10x3/uL (4.8-10.8)
--- NOTE | 2016-11-25 07:00 | NUR ---
REPORT RECEIVED FROM QA TEST ANALYST NURSE. CALL LIGHT IN REACH.
--- NOTE | 2016-11-25 07:25 | NUR ---
OXY IR 10 MG PO WITH SMALL SIP OF WATER PER PAIN OF 10 TO LEFT HIP.
[2016-11-25 08:32] VITALS: BP 125/60
--- NOTE | 2016-11-25 09:36 | NUR ---
AM MEDS ADMINISTERED PER STUDENT NURSE AND INSTRUCTOR.
--- NOTE | 2016-11-25 10:20 | NUR ---
ASSESSMENT COMPLETED. SCDs TO BLE. BED ALARM ON. CALL LIGHT IN REACH. WILL CONTINUE WITH PLNA OF CARE.
[2016-11-25 11:30] VITALS: BP 132/88
--- NOTE | 2016-11-25 12:25 | NUR ---
AWAKE AND ALERT. ORIENTED TO SELF. REPORTS DOING WELL WITH THERAPY, DRESSING TO LEFT HIP IS DRY AND INTACT. SITTING UP IN BED EATING LUNCH
--- NOTE | 2016-11-25 12:28 | NUR ---
WOUND VAC TO LEFT UPPER ARM PATENT WITH SEROUS SANGUINESS DRAINAGE.
--- NOTE | 2016-11-25 14:05 | NUR ---
INFORMED SURGEON AND ANESTHESIOLOGIST ABOUT PATIENT EATING A COUPLE OF BITES FOR LUNCH @ 12
--- NOTE | 2016-11-25 15:29 | NUR ---
TO OR VIA BED.
--- NOTE | 2016-11-25 17:17 | NUR ---
STILL IN OR AT THIS TIME
[2016-11-25 17:29] VITALS: BP 120/55
--- NOTE | 2016-11-25 17:30 | NUR ---
RECEIVED BACK TO ROOM.
--- NOTE | 2016-11-25 17:54 | NUR ---
PAIN MEDS AND REGLAN PO. CALL LIGHT IN REACH.
--- NOTE | 2016-11-25 18:18 | NUR ---
NO CHANGES IN INITIAL ASSESSMENT. SCDs TO BLE. CALL LIGHT IN REACH. WILL CONTINUE WITH PLAN OF CARE. BED ALARM ON.
[2016-11-25 20:50] VITALS: BP 107/51
--- NOTE | 2016-11-25 21:20 | NUR ---
PATIENT RESTING IN RIGHT LATERAL POSITION. NO SIGNS OF DISTRESS NOTED AT THIS TIME. SCHEDULED MEDICATIONS GIVEN ORDERED. SHIFT ASSESSMENT COMPLETED. PRN OXYCODONE AND BENEDRYL GIVEN ORDERED. NO OTHER NEEDS VOICED AT THIS TIME. BED LOW. CALL LIGHT IN REACH.
--- NOTE | 2016-11-25 23:42 | NUR ---
RN NOTE: PT RESTING IN SUPINE POSITION WITH EYES CLOSED AND UNLABORED BREATHING. LEFT SC CENTRAL LINE PATENT WITH NS INFUSING AT 10 ML/HR. SCD'S IN USE ON BLE. CAREY CATHETER DRAINING TO GRAVITY WITH DARK YELLOW URINE IN COLLECTION BAG. WILL CONTINUE TO MONITOR FOR NEEDS. CALL LIGHT WITHIN REACH.
[2016-11-26 05:33] LABS: BASOPHILS 0 % (0.0-2.0); EOSINOPHILS 0 % (0-7); HEMATOCRIT 31.8 % (36.0-48.0); HEMOGLOBIN 10.1 g/dL (12-16); IMMATURE GRANULOCYTES 2.1 % (0-5); LYMPHOCYTES 11.6 % (15-50); MCH 29.7 pg (26.0-34.0); MCHC 31.8 g/dL (31.0-37.0); MCV 93.5 fL (80.0-100.0); MEAN PLATELET VOLUME 11.5 fL (7.4-10.4); MONOCYTES 10.8 % (2-11); NEUTROPHILS 75.5 % (40-80); PLATELET COUNT 203 10x3/uL (130-400); RDW 15.7 % (11.5-14.5); WBC 6.1 10x3/uL (4.8-10.8)
[2016-11-26 05:43] LABS: ANION GAP 8.7 mmol/L (8-16); CALCIUM 8.1 mg/dL (8.5-10.1); CARBON DIOXIDE 31.3 mmol/L (21.0-32.0); MAGNESIUM - SERUM 1.6 mg/dL (1.8-2.4)
--- NOTE | 2016-11-26 08:00 | NUR ---
PT AWAKE AND ALERT ORINETED X 3 LUNGS CLEAR BILATERALLY WITH SOME DIMINISHED SOUNDS NOTED TO LBASE. BOWEL SOUNDS HYPOACTIVE X 4 QUADS HAS DISTENTION NOTED WITH MINIMAL GAS MOVMENT. LEFT TLSC NOTED PATENT TO IVF PER ORDER. WILL MONITOR.
--- NOTE | 2016-11-26 08:03 | OP ---
PATIENT NAME: THELMA SEWELL MEDICAL RECORD: [id number] :29 LOCATION:D.[facility]30 ADMISSION DATE:11/16/16 SURGEON: JYOTI ALEJANDRA MD DATE OF OPERATION: 11/25/2016 SURGEON: Jyoti Alejandra MD PREOPERATIVE DIAGNOSES: Fall, left upper arm wound. POSTOPERATIVE DIAGNOSES: Fall, left upper arm wound. PROCEDURE PERFORMED: 1. Excisional debridement of left upper extremity arm wound, 8 cm in length by 4 cm in width by 2 cm in depth including skin, subcutaneous tissue, and muscle. 2. Delayed primary closure. ANESTHESIA: Local. COMPLICATIONS: None. SPECIMENS: None. Case was clean contaminated. ESTIMATED BLOOD LOSS: 5 cc. OPERATIVE COURSE: After consent was obtained, the patient was taken to the operating room and placed in supine position on the operating table. Next, general anesthesia was given via endotracheal intubation after a timeout was taken to confirm the correct patient and procedure. The arm was prepped and draped in typical sterile fashion. The wound VAC was removed. All necrotic skin edges and necrotic subcutaneous tissue were sharply dissected using Metzenbaum scissors and significant amount of undermining was present. The biceps muscle and fascia were exposed. The total length of the wound was 8 cm in length, 4 cm in width, 2 cm in depth. After all edges and subcutaneous tissue was sharply debrided to healthy skin edges, the wound was irrigated and suctioned. The muscular fascia was reapproximated with 2-0 Vicryl sutures. Subcutaneous tissues were reapproximated with 3-0 Vicryl suture. Some undermining was performed to create skin flaps. The skin was reapproximated with a 2-0 nylon suture in an interrupted vertical mattress fashion. The wound was then covered with Xeroform and Kerlix gauze. A 30 cc of local anesthetic were injected locally for local anesthetic. The patient tolerated procedure well and postoperatively, she was transferred to the PACU in stable condition. TRANSINT:[id number] Voice Confirmation ID: [id number] DOCUMENT ID: [id number] JYOTI ALEJANDRA MD at 0803 CC: [id number] DICTATION DATE: 11/25/16 170 HEAD UP OPERATOR HELPER: 11/25/16 2306 ADM IN [id number] [place] [address]
[2016-11-26 08:38] VITALS: BP 148/78
[2016-11-26 12:43] VITALS: BP 111/51
[2016-11-26] MEDS ORDERED: ANCEF/KEFZOL INJ1 GM IM (15:35)
[2016-11-26] MEDS ORDERED: OXYCODONE HCL5 MG PO (15:36)
--- NOTE | 2016-11-26 16:03 | NUR ---
CM REASSESSMENT NOTE: PATIENT IS DISCHARGING TO IP REHAB TODAY
--- NOTE | 2016-11-26 16:15 | NUR ---
PT TO BE TRANSFERED TO REHAB THIS AFTERNOON PER ORDER PT AWAKE AND L;ERT VERY UNHAPPY ABOUT TRANSFER TO REHAB BECAUSE SHE WANTS TO BE GUARENTEESD A PRIVATE ROOM. EXPLAINED TO PT THAT RD THAT SHE WILL HAVE A PRIVATE ROOM DUE TO POPULATION. WILL MONITOR.
--- NOTE | 2016-11-26 16:25 | NUR ---
AWAKE AND ALERT. ORIENTED X3. NO C/O AT THIS TIME. DAUGHTER AT BEDSIDE. WOUND TO LEFT UPPER ARM IS CLOSED WITHOUT SIGNS OF INFECTION. DRESSING TO LEFT HIP IS DRY AND INTACT. DENIES NEEDS.
--- NOTE | 2016-11-26 17:04 | NUR ---
REPORT CALLED TO NIKKI ROSALES IN REHAB WILL TRANSFER TO ROOM 1110 AFTER EVENING MEAL
--- NOTE | 2016-11-26 18:24 | NUR ---
pt discharged to rehab
== END 2016-11-26 18:25 | DRG 469 ==
LOC: D.ER 09:05 → D.MS 12:48 → OBSVTIME 12:48 → D.MS 12:49 → D.ICU 12:49 → D.MS 11-23 16:38
PROVIDERS: Emergency Medicine; Family Medicine; Internal Medicine Pulmonary Disease; Nurse Practitioner Family; Orthopaedic Surgery Sports Medicine; ADMIT Family Medicine
PROC: 0T9B70Z Drainage of Bladder with Drainage Device, Via Natural or Artificial Opening (ICD-10-PCS; principal; 2016-11-16)
PROC: 0SRS0JZ Replacement of Left Hip Joint, Femoral Surface with Synthetic Substitute, Open Approach (ICD-10-PCS; 2016-11-17)
PROC: 5A1945Z Respiratory Ventilation, 24-96 Consecutive Hours (ICD-10-PCS; 2016-11-17)
PROC: 0KB80ZZ Excision of Left Upper Arm Muscle, Open Approach (ICD-10-PCS; 2016-11-17)
DX: S72.002A Fracture of unspecified part of neck of left femur, initial encounter for closed fracture (principal); J95.821 Acute postprocedural respiratory failure; I50.23 Acute on chronic systolic (congestive) heart failure; J18.9 Pneumonia, unspecified organism; I42.9 Cardiomyopathy, unspecified; J98.11 Atelectasis; D62 Acute posthemorrhagic anemia; W18.39XA Other fall on same level, initial encounter; R00.0 Tachycardia, unspecified; I48.91 Unspecified atrial fibrillation; I11.0 Hypertensive heart disease with heart failure; K21.9 Gastro-esophageal reflux disease without esophagitis; J44.9 Chronic obstructive pulmonary disease, unspecified; I25.10 Atherosclerotic heart disease of native coronary artery without angina pectoris; E78.5 Hyperlipidemia, unspecified; Z95.2 Presence of prosthetic heart valve; F03.90 Unspecified dementia, unspecified severity, without behavioral disturbance, psychotic disturbance, mood disturbance, and anxiety; I27.2 Other secondary pulmonary hypertension; Y83.8 Other surgical procedures as the cause of abnormal reaction of the patient, or of later complication, without mention of misadventure at the time of the procedure; D50.9 Iron deficiency anemia, unspecified; D51.9 Vitamin B12 deficiency anemia, unspecified; S41.102A Unspecified open wound of left upper arm, initial encounter

== ENCOUNTER 2016-11-26 18:00 | Inpatient (IN) | payer MEDICARE ==
[~2016-11-26] VITALS: Ht 170.2 cm; Wt 68.0 kg
[~2016-11-26 18:00] MED LIST changes: +ANCEF/KEFZOL INJ1 GM IM; +OXYCODONE HCL5 MG PO
--- NOTE | 2016-11-26 18:47 | NUR ---
PATIENT ADMITTED FROM MED 11. DIAG:S/P LEFT HIP FRATURE. ALERT/ORIENT X4. DAUGHTER WITH PATIENT. PICC LINE LEFT TRIPLE LUMEN. O2 AT 2L PER N/C. REGULAR DIET. HIP FRATURE FROM FALL AT HOME.
[2016-11-26 21:26] VITALS: BP 103/40; BMI 23.5
--- NOTE | 2016-11-26 23:00 | NUR ---
ADMISSION ASSESSMENT COMPLETED AND PT. POSITIONED TO COMFORT AND READY FOR SLEEP AND WANTS TO WAIT TIL IN THE MORNING TO FINISH SIGNING THE REST OF ADMIT PAPER WORK. CALL LIGHT WITHIN REACH AND CAREY TO BSD WITHOUT PROBLEMS.
--- NOTE | 2016-11-27 02:56 | NUR ---
PT. IN BED WITH HOB UP FOR COMFORT WITH EYES CLOSED AND RESP. EVEN. CALL LIGHT WITHIN REACH. CHERRY TO BSD WITHOUT ANY PROBLEMS.
--- NOTE | 2016-11-27 05:22 | NUR ---
PT. IN BED WITH HOB UP FOR COMFORT WITH EYES CLOSED AND RESP. EVEN. SCD'S IN PLACE SINCE EQUIPMENT NOW WORKING. CAREY TO BSD WITHOUT PROBLEMS. CALL LIGHT WITHIN REACH.
[2016-11-27 06:42] LABS: BASOPHILS 0 % (0.0-2.0); EOSINOPHILS 0.3 % (0-7); HEMATOCRIT 32.3 % (36.0-48.0); HEMOGLOBIN 10.2 g/dL (12-16); LYMPHOCYTES 15.7 % (15-50); MCH 29.5 pg (26.0-34.0); MCHC 31.6 g/dL (31.0-37.0); MCV 93.4 fL (80.0-100.0); MEAN PLATELET VOLUME 11.4 fL (7.4-10.4); MONOCYTES 11.2 % (2-11); NEUTROPHILS 70.8 % (40-80); PLATELET COUNT 209 10x3/uL (130-400); RBC 3.46 10x6/uL (4.00-5.40); RDW 15.6 % (11.5-14.5); WBC 6.4 10x3/uL (4.8-10.8)
[2016-11-27 06:45] LABS: ANION GAP 12.7 mmol/L (8-16); CARBON DIOXIDE 29.5 mmol/L (21.0-32.0); CREATININE - SERUM 1.2 mg/dL (0.6-1.3); POTASSIUM - SERUM 4.2 mmol/L (3.5-5.1)
--- NOTE | 2016-11-27 08:15 | NUR ---
PT RESTING IN BED WITH EYES OPEN EATING BREAKFAST TOLERATING WELL WILL MONITER
[2016-11-27 13:52] VITALS: Ht 170.2 cm; Wt 68.0 kg
--- NOTE | 2016-11-27 13:58 | NUR ---
Nutrition Note: Pt with poor po intake (10% meal avg) and had very poor po intake on acute floor. Rec consider an appetite stimulant. RD following.
--- NOTE | 2016-11-27 14:21 | NUR ---
PT RESTING IN BED WITH EYES OPEN CALL LIGHT IN REACH NO PROBLEMS WILL MONITER
--- NOTE | 2016-11-27 20:15 | NUR ---
PT REQUIRED ASSISTANCE OF TWO TO REPOSITION ON SIDE.
[2016-11-27 20:42] VITALS: BP 95/42
--- NOTE | 2016-11-27 20:50 | NUR ---
CAREY DRAINING, LEFT FOOT PROPPED WITH PILLOW, PT REFUSED OFFER TO WEAR SHOE TO SUPPORT HER LEFT FOOT FROM 'DROPPING.' scd'S ON AND OPERATING. NO S/S OF ACUTE DISTRESS.
--- NOTE | 2016-11-27 23:55 | NUR ---
PT RESTING WITH EYES CLOSED, SLIGHTLY ON RIGHT SIDE, HOB ELEVATED 30 DEGREES, NO S/S OF ACUTE DISTRESS.
--- NOTE | 2016-11-28 06:17 | NUR ---
PT AWAKE, PUJA CARE, PT HAS MINIMAL AWARENESS OF TIME LAPSE, PT STATES SHE LIKES TO HAVE SOMEONE IN THE ROOM WITH HER HER. PT DISTRAUGHT THIS AM RE FEAR OF NOT BEING ABLE TO MOVE AGAIN. ENCOURAGED PATIENT TO ASSIST WITH POSITIONING IN BED. CAREY CATH CARE COMPLETED. PT ABD FIRM AND DISTENDED, PT IS PASSING FLATUS.
[2016-11-28 08:00] VITALS: BP 119/57
--- NOTE | 2016-11-28 08:00 | NUR ---
SHIFT ASSMT COMPLETED.DRSG REMOVED TO LEFT HIP,NO DRAINAGE NOTED SIGHT C/D/I WITH JAQUELINE INTACT;SLIGHT BRUISING NOTED.LT ARM WITH INCISION AND SUTURES INTACT.INCISION LINE IS APPROXIMATED AND BLACK;ALSO HAS BRUISING NOTED AROUND SITE.UPV TO WC WITH 2 PERSON ASSIST.CL IN REACH AND BREAKFAST GIVEN.
--- NOTE | 2016-11-28 12:00 | NUR ---
EATING LUNCH.DENIES NEEDS.
--- NOTE | 2016-11-28 16:00 | NUR ---
RESTING ON SIDE,PILLOW TO BACK.
--- NOTE | 2016-11-28 19:25 | NUR ---
PT STATES SHE LIKES TO HAVE SOMEONE IN HER ROOM, ASSISTED PATIENT WITH NEEDS AND REASSURANCE THAT STAFF WOULD BE PRESENT ALL NIGHT AND WOULD CHECK ON HER. BREAKING UP TASKS TO INCREASE PRESENCE IN PATIENT'S ROOM.
[2016-11-28 19:33] VITALS: BP 102/47
--- NOTE | 2016-11-29 01:21 | NUR ---
HEARD PT CALL FOR BASHIR, WHEN ENTERED THE PATIENT ROOM, PT IN BED, EYES AWAKE, PT STATES SHE DIDN'T KNOW WHAT SHE NEEDED, REPOSITIONED PATIENT, NOTE UNCLAMPLED CAREY AT 2015 AND CLAMPED AT 0100
--- NOTE | 2016-11-29 02:27 | NUR ---
PT ABD DECREASED BS IN RLQ, DISTENDED, PT STATES SHE FEELS NAUSEATED, TENDERNESS TO PALPATION RLQ AND ULQ.
--- NOTE | 2016-11-29 02:28 | NUR ---
PT INQUIRES IF CAREY IS CLAMPED, SHE STATES SHE NEEDS TO GO TO BATHROOM. UNCLAMPED CAREY, APPROX. 160 CC OF URINE DRAINED.
--- NOTE | 2016-11-29 06:57 | NUR ---
pt stated that the ativan helped and she was able to settle down and go to sleep. pt denies any needs.
[2016-11-29 08:00] VITALS: BP 145/90
--- NOTE | 2016-11-29 08:00 | NUR ---
SHIFT ASSMT COMPLETED.CVL DRSG SITE WET.CHANGED.FLUSHED.ABD DISTENDED;SOFT.CL IN REACH.PENDING ABD XRAY.
--- NOTE | 2016-11-29 10:28 | NUR ---
DULCOLAX SUPPOSITORY GIVEN OK FOR RESULTS OF ABD XRAY.
--- NOTE | 2016-11-29 12:00 | NUR ---
SMALL AMT OF LUNCH EATEN.CL IN REACH.
--- NOTE | 2016-11-29 12:30 | NUR ---
MAX ASSIST X2 UP TO WC AND TO BATHROOM.LARGE BROWN FORMED BM NOTED AND PASSING GAS.GOOD RESULTS FROM SUPPOSITORY NOTED.RETURNED TO BED MAX ASSIST X2.
--- NOTE | 2016-11-29 16:00 | NUR ---
POSITIONED FROM SIDE TO SIDE.GOOD NAP TAKEN.STATES FEELING BETTER.ABD SOFT BUT STILL REMAINS DISTENDED.CL IN REACH.STATES STILL PASSING GAS.
--- NOTE | 2016-11-29 18:24 | NUR ---
C/O ANXIETY.ATIVAN 0.5MG PO GIVEN.
--- NOTE | 2016-11-29 19:45 | NUR ---
PT. IN BED WITH HOB UP FOR COMFORT WITH EYES CLOSED AND RESP. EVEN. PT. AWAKENS EASILY WHEN HER NAME IS CALLED OUT. O2 ON VIA N/C AT 2L/MIN WITHOUT ANY PROBLEMS. PT. ADMIN. HER PAIN PILL FOR BACK AND LLE PAIN. ASSESSMENT COMPLETED. NO OTHER VOICED NEEDS AT THIS TIME AND PT. HAS HER CALL LIGHT WITHIN REACH.
--- NOTE | 2016-11-29 21:40 | NUR ---
PT. REQUESTING TO BE REPOSITIONED SHE IS NO LONGER COMFORTABLE AFTER RADIOLOGY STAFF GOT FINISHED WITH HER X-RAYS. POSITIONED PT. ONTO HER LEFT SIDE WITH PILLOW TO RIGHT SIDE OF BACK FOR SUPPORT. PT. STATED THAT SHE FELT MUCH BETTER WITH THAT REPOSITIONING. LE'S WITH SCD'S AND ELEVATED UP ON PILLOW TO BRIDGE HEELS ALSO. CALL LIGHT WITHIN REACH.
[2016-11-29 23:08] VITALS: BP 130/61
--- NOTE | 2016-11-29 23:39 | NUR ---
PT. IN BED WITH HOB UP FOR COMFORT AND LYING ON HER LEFT SIDE WITH PILLOW AT BACK ON RIGHT SIDE FOR SUPPORT. HEELS ARE BRIDGED AND SCD'S ARE ON. CAREY TO BSD AND BLADDER TRAINING CONTINUES AND CATHETER WILL BE D/C'D IN AM. CALL LIGHT WITHIN REACH.
--- NOTE | 2016-11-30 01:30 | NUR ---
AFTER ADMINISTERING PRN ATIVAN CHECKED TO SEE IF PT. HAD HAD A BM PT. ADMITTED TO PASSING GAS. PT. DID HAVE AN INCONTINENT BM. CHANGED HER GOWN AND CLEANED HER UP AND APPLIED CALMOSEPTINE OINTMENT TO BUTTOCK AREA AND UNCLAMPED CATHETER PT. FELT THE PRESSURE OF NEEDING TO URINATE. RE-CLAMPED CATHETER BLADDER TRAINING CONTINUED. CHANGED PINK UNDERPADDING IT WAS SOILED ALSO. PT. POSITIONED TO COMFORT AND HAS HER CALL LIGHT WITHIN REACH.
--- NOTE | 2016-11-30 03:03 | NUR ---
PT. IN BED WITH HOB UP FOR COMFORT WITH EYES CLOSED AND RESP. EVEN. CAREY TO BDS WITHOUT PROBLEMS. CONTINUE BLADDER TRAINING. CALL LIGHT WITHIN REACH.
--- NOTE | 2016-11-30 05:02 | NUR ---
EXPLAINED TO PT. THAT HER ATIVAN IS ORDERED EVERY 6 HOURS NEEDED AND IT'S NOT DUE AGAIN UNTIL AROUND 7:20AM. ALSO EXPLAINED THAT HER CATHETER WOULD BE COMING OUT THIS MORNING AND PT. IS REFUSING TO HAVE IT REMOVED UNTIL SHE TALKS WITH DR. PINEDA AND EXPLAINS TO HIM THAT UNTIL SHE CAN FEEL HER LLE AND WALK BETTER, SHE DOESN'T WANT THE CATHETER REMOVED. INFORMED PT. I WOULD PASS THAT INFORMATION ONTO THE NEXT NURSE AND SHE WILL BE SURE TO INFORM DR. PINEDA TO TALK WITH PT. ABOUT IT. CALL LIGHT WITHIN REACH UPON LEAVING PT'S ROOM.
[2016-11-30 06:22] LABS: BASOPHILS 0 % (0.0-2.0); EOSINOPHILS 0 % (0-7); HEMATOCRIT 30.2 % (36.0-48.0); HEMOGLOBIN 9.5 g/dL (12-16); IMMATURE GRANULOCYTES 1.1 % (0-5); MCH 29.4 pg (26.0-34.0); MCHC 31.5 g/dL (31.0-37.0); MCV 93.5 fL (80.0-100.0); MEAN PLATELET VOLUME 10.7 fL (7.4-10.4); MONOCYTES 9.3 % (2-11); NEUTROPHILS 73.6 % (40-80); PLATELET COUNT 236 10x3/uL (130-400); RBC 3.23 10x6/uL (4.00-5.40); RDW 15.3 % (11.5-14.5); WBC 6.4 10x3/uL (4.8-10.8)
[2016-11-30 06:57] LABS: ANION GAP 7.7 mmol/L (8-16); CALCIUM 8.2 mg/dL (8.5-10.1); CARBON DIOXIDE 32.7 mmol/L (21.0-32.0); CREATININE - SERUM 1.3 mg/dL (0.6-1.3); POTASSIUM - SERUM 4.4 mmol/L (3.5-5.1)
--- NOTE | 2016-11-30 07:30 | NUR ---
RESTING QUIETLYIN BED. CALL LIGHT IN REACH
[2016-11-30 08:10] VITALS: BP 117/55
--- NOTE | 2016-11-30 08:15 | NUR ---
PT RESTING IN BED WITH EYES OPEN CALL LIGHT IN REACH PT EATING BREAKFAST WILL MONITER
--- NOTE | 2016-11-30 09:15 | NUR ---
PT GIVEN OXI IR FOR PAIN TO LEFT HIP FOR 8/[address] ROY
--- NOTE | 2016-11-30 09:45 | NUR ---
PT RECIVING OT SHOWER TOLERATING WELL
--- NOTE | 2016-11-30 17:00 | NUR ---
PT RESTING IN BED WITH EYES OPEN CALL LIGHT IN REACH WILL MONITER
--- NOTE | 2016-11-30 19:20 | NUR ---
PT. IN BED WITH HOB UP FOR COMFORT AND HER EYES ARE CLOSED AND RESP. EVEN. PT. AWAKENS EASILY WHEN YOU CALL HER NAME. PT. REPORTS HER BACK PAIN IS CONSTANT SHE HAS HAD MULTIPLE SURGERIES IN THE PAST. PT. AWARE OF HER PAIN MED SCHEDULE AND HER ATIVAN SCHEDULE. ASSESSMENT COMPLETED. CAREY TO BSD WITHOUT PROBLEMS. CALL LIGHT WITHIN REACH.
--- NOTE | 2016-11-30 21:15 | NUR ---
PT. IN BED WITH HOB UP FOR COMFORT WITH EYES CLOSED AND RESP. EVEN. CAREY TO BSD WITHOUT PROBLEMS. CALL LIGHT WITHIN REACH.
[2016-11-30 22:47] VITALS: BP 98/48
--- NOTE | 2016-11-30 23:10 | NUR ---
PT. IN BED WITH HOB UP AND REQUESTING TO HAVE SHEETS ADJUSTED. PT. HAS CALLED OUT FOR ASSISTANCE AND HAS BEEN INSTRUCTED ON USING HER CALL LIGHT BUTTON SO SHE WON'T DISTURBE HER NEIGHBORS. BED LINENS ADJUSTED TO HER LIKING AND CALL LIGHT WITHIN REACH. CAREY TO BSD WITHOUT PROBLEMS.
--- NOTE | 2016-12-01 01:02 | NUR ---
PT. IN BED WITH HOB UP FOR COMFORT WITH EYES CLOSED AND RESP. EVEN. CALL LIGHT WITHIN REACH AND CAREY TO BSD WITHOUT PROBLEMS.
--- NOTE | 2016-12-01 02:30 | NUR ---
PT. REQUESTED I COME INTO HER ROOM. UPON ENTERING PT. WANTED ME TO FIX HER SHEETS. NOTICED SHE HAS HAD A BM. CLEANED PT. UP AND REPLACED PINK PAD, BRIEF, APPLIED CALMOSEPTINE TO BUTTOCK AND DID HER CAREY CARE. CAREY TO BSD WITHOUT PROBLEMS. O2 ON @ 2L/MIN VIA N/C AND CALL LIGHT WITHIN REACH.
--- NOTE | 2016-12-01 07:00 | NUR ---
Pt. was received this morning at the start of this shift. She was in bed awake and alert. Orientated x 3. Vital signs: Temp. 97.7, pulse 71, resp. 14, b/p 103/38, 02Sat. 98%. She requires assist with adl's. 02 per nc going at 2L/min. Lugo catheter is patent and draining clear yellow urine to gravity. Will continue to monitor. Call light is in reach.
--- NOTE | 2016-12-01 12:00 | NUR ---
Pt is having an uneventful day. Pt. has had several loose stools this am. Her Miralax was held. Stool was sent off for culture and results on C-Diff were negative. Call light in reach.
--- NOTE | 2016-12-01 12:12 | NUR ---
Nutrition Follow Up: Pt reported that she did not want to try Alfonso. RD explained that this was to promote wound healing but pt continued to refuse. Food preferences noted. Pt is eating 40% meal avg on Regular diet. I>O. +BM 12/01/16. Wt stable. Meds noted including Bumex, Reglan, Dulcolax. Labs noted. Pt with poor po intake. Rec continue current diet. Will d/c Alfonso per pt request. Will continue to send selective menus and honor food preferences. RD following.
[2016-12-01 18:20] VITALS: BP 103/38
[2016-12-01 19:00] VITALS: BP 127/57
--- NOTE | 2016-12-01 19:20 | NUR ---
PT. IN BED WITH HOB UP FOR COMFORT AND AWAKE. PT WANTS HER BED LINENS FIXED AND A TOP SHEET SHE DOESN'T HAVE ONE. FIXED PT'S LINENS AND ADMIN. HER PAIN MEDS AT PT'S REQUEST FOR A PAIN LEVEL OF #7 ALL OVER. ASSISTED PT. UP IN BED AND POSITIONED TO COMFORT WITH CALL LIGHT WITHIN REACH.
--- NOTE | 2016-12-01 20:30 | NUR ---
WENT TO REMOVE SCRUB PANTS FOR THE NIGHT AND PT. HAS HAD AN INCONTINENT BM. CLEANED PT. UP, ALL BED LINENS CHANGED, SCD'S CHANGED THEY GOT SOILED WITH STOOL, CALMOSEPTINE APPLIED TO BUTTOCK AREAS. PT. NOW WITH SMALL SKIN TEAR TO LEFT BUTTOCK. MADE SURE AREA WAS COVERED WITH CALMOSEPTINE. ADULT BRIEF APPLIED FOR INCONTINET STOOLING. PT. POSITIONED FOR COMFORT WITH CALL LIGHT WITHIN REACH.
--- NOTE | 2016-12-01 21:08 | NUR ---
PT. IN BED WITH HOB UP FOR COMFORT, CAREY TO BSD WITHOUT PROBLEMS, SCD'S ON TO BLE'S, AND EYES ARE CLOSED AND RESP. ARE EVEN. O2 ON @ 2L/MIN VIA N/C WITHOUT PROBLEM. CALL LIGHT WITHIN REACH.
--- NOTE | 2016-12-01 23:45 | NUR ---
PT. IN BED WITH HOB UP FOR COMFORT WITH EYES CLOSED AND RESP. EVEN. CALL LIGHT IS WITHIN REACH. CAREY TO BSD AND SCD CONTINUE TO BE ON BLE'S.
--- NOTE | 2016-12-02 00:01 | NUR ---
PT. IN BED WITH HOB UP FOR COMFORT WITH EYES CLOSED AND RESP. EVEN. CAREY TO BSD WITHOUT PROBLEMS AND SCD'D ON BLE'S, CALL LIGHT WITHIN REACH.
--- NOTE | 2016-12-02 03:05 | NUR ---
PT. IN BED WITH HOB UP FOR COMFORT WITH EYES CLOSED AND RESP. EVEN. CAREY TO BSD, SCD'S TO BLE'S, O2 ON VIA N/C @2L/MIN AND HER CALL LIGHT IS WITHIN REACH.
--- NOTE | 2016-12-02 05:30 | NUR ---
PT. IN BED WITH HOB UP FOR COMFORT WITH EYES CLOSED AND RESP. EVEN. CAREY TO BSD, SCD'D ON BLE'S, AND O2 ON PER N/C @ 2L/MIN. CALL LIGHT WITHIN REACH.
[2016-12-02 05:55] LABS: BASOPHILS 0.2 % (0.0-2.0); EOSINOPHILS 0 % (0-7); HEMATOCRIT 30.6 % (36.0-48.0); HEMOGLOBIN 9.4 g/dL (12-16); IMMATURE GRANULOCYTES 1.2 % (0-5); LYMPHOCYTES 24.5 % (15-50); MCH 29.3 pg (26.0-34.0); MCHC 30.7 g/dL (31.0-37.0); MCV 95.3 fL (80.0-100.0); MEAN PLATELET VOLUME 10.3 fL (7.4-10.4); NEUTROPHILS 63.1 % (40-80); PLATELET COUNT 226 10x3/uL (130-400); RBC 3.21 10x6/uL (4.00-5.40); RDW 15.5 % (11.5-14.5); WBC 5.2 10x3/uL (4.8-10.8)
[2016-12-02 06:15] LABS: ANION GAP 9.2 mmol/L (8-16); CALCIUM 8.5 mg/dL (8.5-10.1); CARBON DIOXIDE 33.3 mmol/L (21.0-32.0); CREATININE - SERUM 1.1 mg/dL (0.6-1.3); POTASSIUM - SERUM 4.5 mmol/L (3.5-5.1)
[2016-12-02 08:03] VITALS: BP 120/53
--- NOTE | 2016-12-02 09:42 | NUR ---
INCONTINENT BOWEL MOVEMENT NOTED, DIARRHEA. PT CLEANED UP VIA TOTAL ASSIST. NO ACUTE DISTRESS NOTED. UP IN THERAPY GYM AT THIS TIME PARTICIPATING IN THERAPY. WILL OCONTINUE PLAN FO CARE.
--- NOTE | 2016-12-02 12:09 | NUR ---
UP IN BED EATING LUNCH AT THIS TIME VIA SET UP ASSIST. DENIES ANY NEEDS. WILL CONTINUE PLAN FO CARE.
--- NOTE | 2016-12-02 14:34 | NUR ---
ASSISTED TO TRANSFER FROM WHEELCHAIR TO BED VIA MODERATE ASSIST X 2 PERSON. PUJA CARE AND CAREY CARE THEN PROVIDED VIA TOTAL ASSIST. PT ABLE TO ASSIST WITH TURNING VIA MOD ASSIST. INCONTINENT BOWEL MOVEMENT NOTED, SMALL IN SIZE. NO ACUTE DISTRESS. WILL CONTINUE PLAN OF CARE.
--- NOTE | 2016-12-02 16:34 | NUR ---
CARE TEAM MEETING: PATIENT TENATIVE DISCHARGE DATE IS 12/11/16. PATIENT HAS WALKER, O2, AND USES [facility] FOR DME NEEDS. PCP IS DR. VILLAFUERTE, HAS USED [facility] IN THE PAST. [facility] FOR MEDICATIONS. WILL CONTINUE TO FOLLOW WITH PATIENT UNTIL DISCHARGED.
--- NOTE | 2016-12-02 17:32 | NUR ---
UP IN BED AT THIS TIME AWAKE. DENEIS ANY NEEDS. WILL CONTINUE PLAN FO CARE.
--- NOTE | 2016-12-02 18:44 | NUR ---
CVL DRESSING TO LEFT CHEST CHANGED PER PROTOCOL. ALSO AT THIS TIME INCONTINENT BOWEL MOVEMENT NOTED, SMALL. INCONTINENCE CARE PROVIDED VIA TOTAL ASSIST. NO ACUTE DISTRESS NOTED. WILL CONTINUE PLAN FO CARE.
--- NOTE | 2016-12-02 19:45 | NUR ---
PT RESTING IN BED, EYES CLOSED. WOKE FOR VS AND ASSESSMENT. DENIES NEEDS. WCTM. BED LOW. CL IN [facility].
--- NOTE | 2016-12-02 21:00 | NUR ---
PT TOOK HS MEDS WITHOUT DIFFICULTY. PT DENIES NEEDS AT THIS TIME. BED LOW. CL IN REACH.
--- NOTE | 2016-12-03 00:45 | NUR ---
PT REQ AND REC'D PRN ATIVAN AND PAIN MEDICATION PER ORDERS AT THIS TIME. WCTM. BED LOW. CL IN [facility].
--- NOTE | 2016-12-03 02:20 | NUR ---
PT AWAKE RESTING IN BED, DENIES NEEDS. WCTM. BED LOW. CL IN REACH.
--- NOTE | 2016-12-03 04:47 | NUR ---
PT IV ABX ADMINISTERED. PT AWAKE RESTING IN BED, DENIES NEEDS. WCTM. BED LOW. CL IN [facility].
--- NOTE | 2016-12-03 06:38 | NUR ---
PT REQ AND REC'D PRN ATIVAN AND PAIN MED PER ORDERS AT THIS TIME. PT DENIES FURTHUR NEEDS. WCTM. BED LOW. CL IN REACH.
--- NOTE | 2016-12-03 07:00 | NUR ---
Pt. was received at the beginning of this shift in bed and sound asleep. Vital signs taken at this time are: Temp. 97.9, pulse 68, resp. 15, b/p 132/68, 02Sat. 96%. Will be monitoring her and giving her assist with her adl's prn. No distress found.
[2016-12-03 08:01] VITALS: BP 132/68
--- NOTE | 2016-12-03 12:00 | NUR ---
Pt. is having an uneventful day. Lf triple lumen subclavian patent and flushed. 02 per nc going at 2L/min. No voiced complaints. Will continue to observe. Stable condition to note. Call light is in reach. Pt. went to therapy this morning and participated well.
--- NOTE | 2016-12-03 17:13 | NUR ---
Pt went to therapy this afternoon and has been resting in bed with eyes closed after that. No voiced needs.
--- NOTE | 2016-12-03 18:22 | NUR ---
PT JUST ASKED FOR A NERVE PILL AND WAS GIVEN AN ATIVAN 0.5MG. RESTING IN BED AWAKE. SHE JUST FINISHED EATTING HER SUPPER.
[2016-12-03 19:25] VITALS: BP 122/49
--- NOTE | 2016-12-03 19:40 | NUR ---
PT REQ AND REC'D PRN PAIN MEDICATION ALONG WITH HS MEDS. PT IV ABX ADMINISTERED AT THIS TIME. PT DENIES FURTHUR NEEDS. WCTM. BED LOW. CL INR EACH.
--- NOTE | 2016-12-03 22:10 | NUR ---
PT RESTING, EYES CLOSED. BLADDER TRAINING INITIATED. WCTM. BED LOW. CL IN REACH.
--- NOTE | 2016-12-03 23:46 | NUR ---
PT RESTING, EYES CLOSED. BED LOW. CL IN REACH. CAREY UNCLAMPED.
--- NOTE | 2016-12-04 01:40 | NUR ---
PT REQ AND REC'D PRN ATIVAN PER ORDERS AT THIS TIME. BED LOW. CL IN REACH.
--- NOTE | 2016-12-04 05:40 | NUR ---
PT HAD EPISODE OF INCONTINENT BOWEL. PT CLENED AND BRIEF AND PINK PAD CHANGED. PT DENIES NEEDS. WCTM. BED LOW. CL IN [facility].
[2016-12-04 05:42] LABS: BASOPHILS 0 % (0.0-2.0); EOSINOPHILS 0 % (0-7); HEMATOCRIT 29.3 % (36.0-48.0); HEMOGLOBIN 9.1 g/dL (12-16); IMMATURE GRANULOCYTES 0.6 % (0-5); LYMPHOCYTES 19.5 % (15-50); MCH 29.9 pg (26.0-34.0); MCHC 31.1 g/dL (31.0-37.0); MCV 96.4 fL (80.0-100.0); MEAN PLATELET VOLUME 10.5 fL (7.4-10.4); MONOCYTES 10.1 % (2-11); NEUTROPHILS 69.8 % (40-80); PLATELET COUNT 206 10x3/uL (130-400); RBC 3.04 10x6/uL (4.00-5.40); RDW 15.8 % (11.5-14.5); WBC 5.1 10x3/uL (4.8-10.8)
[2016-12-04 06:00] LABS: ANION GAP 4.6 mmol/L (8-16); CALCIUM 8.5 mg/dL (8.5-10.1); CARBON DIOXIDE 38.8 mmol/L (21.0-32.0); CREATININE - SERUM 1.2 mg/dL (0.6-1.3); POTASSIUM - SERUM 4.4 mmol/L (3.5-5.1)
--- NOTE | 2016-12-04 07:35 | NUR ---
RESTING IN BED WITH O2 ON. C/O PAIN AND PRN MED ALREADY GIVEN.
[2016-12-04 07:53] VITALS: BP 129/45
--- NOTE | 2016-12-04 10:44 | RHP ---
PATIENT: THELMA SEWELL MEDICAL RECORD: [id number] ACCOUNT: [id number] LOCATION:[facility]1110 : 29 ADMISSION DATE: 11/26/16 REHABILITATION HISTORY AND PHYSICAL EXAMINATION POST ADMISSION PHYSICIAN EXAMINATION Post-Admission Physical Exam and History and Physical DATE OF ADMISSION: 11/26/2016 ADMITTING DIAGNOSES: Status post left femoral neck fracture, ivfwq-[id number] hypoxic respiratory failure and tyozs-uu-vkmgsee systolic congestive heart failure. HISTORY OF PRESENT ILLNESS: The patient was admitted to the inpatient rehab status post left femoral neck fracture, jtvfc-cu-bfsyrxt hypoxic respiratory failure and naagr-bw-qhqcips congestive heart failure with an ejection fraction of 30%. She is an 86-year-old female patient, who got up in the middle of the night to go the bathroom and fell and is complaining of left hip pain. She was brought to the Emergency Room where she had a mildly displaced left hip fracture. She was admitted for further treatment. She underwent a left ____on November 17. She developed some postop complications. Her BNP was elevated to 4699 and up to 47,151 on November 18. She had stay in the ICU, but is now on the medical-surgical floor and transferred to the inpatient rehab after progressing with physical therapy. The patient also has some left upper extremity wound that occurred during the fall and has got a wound VAC and has had surgical wound closure on November 25. SOCIAL HISTORY: She lives alone independently in her own apartment [facility], would like to return there as home and get back to her prior level of functioning. COMORBIDITIES: Include left ventricular failure, coronary artery disease, hypertension, hypotension, hyperlipidemia, hypothyroidism, depressive disorder, iron deficiency anemia, mild dementia, ejection fraction 30%, pulmonary hypertension, moderate mitral regurgitation, and severe triscuspid regurgitation. PAST MEDICAL HISTORY: Significant for atrial fibrillation with rapid ventricular response, CHF, pulmonary hypertension, mitral valve replacement in the past, hypertension, hyperlipidemia, and dementia. PAST SURGICAL HISTORY: Includes laminectomy, mitral valve replacement in 2002, appendectomy, laparoscopic cholecystectomy, hysterectomy and partial knee replacement. ALLERGIES: STEROIDS. CURRENT MEDICATIONS: Include Floranex daily, Urocit-K 10 mEq daily, MiraLax 17 grams in 8 ounces of water daily, Reglan 10 mg t.i.d. with meals, Synthroid 50 mcg daily, diltiazem 180 mg daily, Plavix 75 mg daily, Bumex 2 mg daily, aspirin 81 mg daily. She is on zolpidem 5 mg q.h.s. p.r.n., Betapace 120 mg b.i.d., promethazine 25 mg q.6 hours p.r.n. pain, OxyIR 10 mg q.4 hours p.r.n. pain, Singulair 10 mg q.h.s., Ativan 0.5 mg q.6 hours as needed, Benadryl p.r.n. and on Ancef. HISTORY AND PHYSICAL [id number] THELMA SEWELL HABITS: No alcohol or tobacco use. FAMILY HISTORY: Noncontributory. SOCIAL HISTORY: The patient hopes to return back to [facility] to get back to her prior level of functioning. REVIEW OF SYSTEMS: GENERAL: Does complain of weakness and fatigue. HEENT: She denies cold, cough, or congestion. CARDIOVASCULAR: Denies chest pain. LUNGS: Denies any shortness of breath. PHYSICAL EXAMINATION: VITAL SIGNS: Stable. She is afebrile. GENERAL: Elderly female, in no acute distress, alert upon exam. HEENT: Normocephalic, atraumatic. Mucosa moist. NECK: Supple. No lymphadenopathy. LUNGS: Clear. HEART: ____ rate and rhythm. ABDOMEN: Benign. EXTREMITIES: Does have changes consistent with hip replacement. She also has pain in the left ankle and wrist and some mild swelling and also well demarcated laceration to her upper arm. NEUROLOGIC: Consistent with dementia. LABORATORY DATA: Her white count is 6.4, H&H of 10 and 32 and platelet count is noted to be 209. Her sodium is 137, potassium 4.2, BUN and creatinine of 34 and 1.2, and blood sugar is 105. ASSESSMENT: This is an 86-year-old female patient, who is status post ____ to her left hip. The patient has potential to make improvement. We instituted the following multidisciplinary therapies including to, but not limited to physical, occupational, respiratory, speech, nutritional services, prosthetics and orthotics. Given her complex condition and risk for more complications, rehabilitation services cannot be provided at a low level of care such as a jail facility. PLAN: 1. Admit to [facility] rehab for intensive inpatient therapy to include the following disciplines: A. Physical therapy to improve gait, all transfer skills and bed mobility to a modified independent level. B. Occupational therapy to improve activities of daily living to modified independent level. C. Case management to assist with discharge planning and placement options. D. Nutrition to assist with nutritional needs. E. Rehabilitation nursing to assist in monitoring the patient's underlying medical conditions and to assist with any type of bowel or bladder management. 2. The patient's current medication and medical care will be continued. 3. The patient will be placed on standard fall precautions. 4. We are going to go ahead and get an x-ray of her left wrist and also her left ankle. 5. We will get her on a good bowel regimen. HISTORY AND PHYSICAL [id number] THELMA SEWELL 6. We will go ahead and follow up on Wednesday or earlier if needed. TRANSINT:[id number] Voice Confirmation ID: [id number] DOCUMENT ID: [id number] MINH PINEDA MD at 1044 CC: [id number] DICTATION DATE: 11/27/16 0837 PROGRAM MANAGEMENT PROFESSIONAL: 11/27/[address] [facility] [address] [place] [address]
--- NOTE | 2016-12-04 11:45 | NUR ---
RESTING IN BED AND REMOVED JAQUELINE FROM LT HIP INCISION. NO BLEEDING NOTED AND STERI STRIPS APPLIED TO AREA.
--- NOTE | 2016-12-04 13:28 | NUR ---
RESTING IN BED AND C/O FEELING LIKE I NEED TO PEE. UNCLAMPED CAHTERTER AND LET IT DRAINED AND RECLAMPED.
--- NOTE | 2016-12-04 14:43 | NUR ---
PT C/O PAIN BELOW THE LT BREAST. NO SOB NOTED AND 02 SAT 97 ON 2LNC. PRN ATIVAN GIVEN.
--- NOTE | 2016-12-04 15:28 | NUR ---
RESTING IN BED NO C/O PAIN NOTED.
--- NOTE | 2016-12-04 17:17 | NUR ---
RESTING IN BED AND REPOSITIONED FOR COMFORT.
[2016-12-04 19:43] VITALS: BP 116/49
--- NOTE | 2016-12-04 19:45 | NUR ---
PT RESTING IN RECLINING POSITION, PT STATES SHE DOESN'T LIKE TO BE LEFT ALONE. PT REQUESTED SCD STATING HER LEGS FEEL BETTER WHEN THEY ARE ON.
--- NOTE | 2016-12-05 00:25 | NUR ---
PT RESTING WITH EYES CLOSED, SCD'S ON, RESPIRATIONS REGULAR AND UNLABORED.
--- NOTE | 2016-12-05 07:13 | NUR ---
pt requests staff to be present with her, provided assurance and reassurance.
[2016-12-05 08:00] VITALS: BP 159/81
--- NOTE | 2016-12-05 08:00 | NUR ---
BLADDER TRAINING CONTINUED. CAREY CATH UNCLAMPED AND CLAMED
--- NOTE | 2016-12-05 09:55 | NUR ---
PATIENT RESTING IN BED.C/O OF ANXIETY. PRN ATIVAN GIVEN
--- NOTE | 2016-12-05 10:00 | NUR ---
RESTING QUIETLY IN BED. CALL LIGHT IN REACH
--- NOTE | 2016-12-05 10:36 | NUR ---
PATIENT LYING IN BED. C/O OF HIP AND BACK PAIN. PRN PAIN MEDICATION GIVEN
--- NOTE | 2016-12-05 12:30 | NUR ---
BLADDER TAINING CONTINUE. CAREY CATH UNCLAMPED.
--- NOTE | 2016-12-05 13:45 | NUR ---
PATIENT HELPED BACK INTO BED. MOD ASST OF ONE FROM WHEELCHAIR INTO BED. VOICES NO ANXIETY OR PAIN/DISC AT THIS TIME
--- NOTE | 2016-12-05 17:51 | NUR ---
BLADDER TRAINING CONT. CAREY CATH UNCLAMPED.
[2016-12-05 19:36] VITALS: BP 122/57
--- NOTE | 2016-12-05 19:55 | NUR ---
REVIEWED URINARY BLADDER TRAINING, PT STATES SHE DOESN'T WANT THE CAREY DC'D UNTIL SHE CAN WALK.
--- NOTE | 2016-12-05 23:24 | NUR ---
PT AWAKE, ANXIOUS, WITHOUT OXYGEN, YELLING FOR HELP. PT STATES SHE FEELS LIKE SHE IS GOING TO . REAPPLIED THE OXYGEN, ENCOURAGED DEEP BREATHING, REMINISCENT DISCUSSION, CHANGED PAJAMAS, PROVIDED PUJA CARE, REPOSITIONED, AND SAT IN ROOM WIHT PATIENT.
--- NOTE | 2016-12-06 00:26 | NUR ---
PT RESTING WITH EYES CLOSED, RESPIRATIONS REGULAR AND UNLABORED, OXYGEN ON PATIENT PER NC.
--- NOTE | 2016-12-06 07:05 | NUR ---
RESTING QUIETLY IN BED. CALL LIGHT IN REACH
[2016-12-06 08:00] VITALS: BP 102/45
--- NOTE | 2016-12-06 08:21 | NUR ---
PATIENT SITTING UP IN BED FOR BREAKFAST. ALERT/ORIENTX 2. HAS SOME ANXIEITY. PRN ATIVAN GIVEN BEFORE THIS SHIFT. CALL LIGHT WITHIN REACH.
--- NOTE | 2016-12-06 08:49 | NUR ---
PRN PAIN MEDICATION GIVEN FOR BOTTOCKS PAIN PER PATIENT REQUEST
--- NOTE | 2016-12-06 10:14 | NUR ---
PATIENT REFUSED SHOWER. THIS NURSE HELPED PATIENT CHANGE FROM [place] INTO PANTS AND TOP.
--- NOTE | 2016-12-06 13:15 | NUR ---
PRN ATIVAN GIVEN FOR ANXIETY
--- NOTE | 2016-12-06 18:43 | NUR ---
CAREY CATH EMPTIED. 1,000CC OF DARK YELLOW URINE IN CAREY CATH
[2016-12-06 19:38] VITALS: BP 103/46
--- NOTE | 2016-12-06 19:45 | NUR ---
PT REQ AND REC'D PRN PAIN MEDICATION WITH HS MEDS. PT DENIES FURTHUR NEEDS AT THIS TIME. BED LOW. CL IN [facility].
--- NOTE | 2016-12-06 22:57 | NUR ---
PT ACTING VERY ANXIOUS. C/O SLEEPLESSNESS. PT REQ AND REC'D PRN ATIVAN. WCTM. BED LOW. CL IN [facility].
--- NOTE | 2016-12-06 23:57 | NUR ---
PT RESTING, EYES CLOSED. BED LOW. CLIN [facility].
--- NOTE | 2016-12-07 01:15 | NUR ---
PT RESTING, EYES CLOSED. BED LOW. C JANIA REACH.
--- NOTE | 2016-12-07 04:53 | NUR ---
PT AWOKE AND WAS VERY ANXIOUS. PT HAD REMOVED HER O2. O2 SAT WAS 88. REPLACED O2 AND SAT CAME BACK UP TO 94 AND PT SEEMED TO RELAX. WCTM. BED LOW. CL IN REACH.
[2016-12-07 05:58] LABS: BASOPHILS 0 % (0.0-2.0); EOSINOPHILS 0 % (0-7); HEMATOCRIT 32.1 % (36.0-48.0); HEMOGLOBIN 9.5 g/dL (12-16); IMMATURE GRANULOCYTES 1.4 % (0-5); LYMPHOCYTES 22.7 % (15-50); MCH 29.1 pg (26.0-34.0); MCHC 29.6 g/dL (31.0-37.0); MCV 98.2 fL (80.0-100.0); MEAN PLATELET VOLUME 10.7 fL (7.4-10.4); MONOCYTES 9.2 % (2-11); NEUTROPHILS 66.7 % (40-80); PLATELET COUNT 218 10x3/uL (130-400); RBC 3.27 10x6/uL (4.00-5.40); WBC 5.7 10x3/uL (4.8-10.8)
[2016-12-07 06:25] LABS: ANION GAP 7.8 mmol/L (8-16); CALCIUM 8.7 mg/dL (8.5-10.1); CARBON DIOXIDE 38.7 mmol/L (21.0-32.0); CREATININE - SERUM 1.3 mg/dL (0.6-1.3); POTASSIUM - SERUM 4.5 mmol/L (3.5-5.1)
[2016-12-07 08:00] VITALS: BP 112/59
--- NOTE | 2016-12-07 08:15 | NUR ---
DR. Tyrell PINEDA INTO SEE PATIENT. NEW ORDERS RECEIVED.
--- NOTE | 2016-12-07 09:24 | NUR ---
RESTING QUIETLY IN BED
--- NOTE | 2016-12-07 10:22 | NUR ---
DR ALEJANDRA CALLED IN REGARDS TO LACERATION/SUTURES IN LEFT UPPER ARM. TALKED WITH DR. GRANADOS NURSE WHO STATED SHE WILL TEXT DR. ALEJANDRA IN REGARDS TO.
--- NOTE | 2016-12-07 14:29 | NUR ---
Gabriel JAMA RN IN PATIENTS ROOM. EXPLAINING REASON FOR THE NEED TO REMOVE PATIENTS CAREY CATH
--- NOTE | 2016-12-07 14:56 | NUR ---
PATIENT STATES THAT SHE WILL LET NURSING REMOVE CAREY CATH IN THE AM. BED SIDE COMMODE IN ROOM
--- NOTE | 2016-12-07 15:41 | NUR ---
DR. ALEJANDRA INTO SEE PATIENT. REMOVED SUTURES FROM LACERATION ON LEFT FOREARM
--- NOTE | 2016-12-07 17:36 | NUR ---
PATIENT SITTING UP IN BED TO EAT SUPPER. VOICES NO NEEDS. CALL LIGHT WITHIN REACH
[2016-12-07 19:31] VITALS: BP 117/60
--- NOTE | 2016-12-07 20:00 | NUR ---
PT REQ AND REC'D PRN ATIVAN AND PAIN MEDICATION WITH HS MEDS. PT DENIES FURTHUR NEEDS AT THIS TIME. BED LOW. CL IN REACH. WCTM.
--- NOTE | 2016-12-07 22:50 | NUR ---
PT RESTING, EYES CLOSED. BED LOW. CL IN REACH.
--- NOTE | 2016-12-08 01:55 | NUR ---
PT RESTING, EYES CLOSED. BED LOW. CL IN REACH. WCTM.
--- NOTE | 2016-12-08 04:52 | NUR ---
PT REQ AND REC'D PRN ATIVAN AND PAIN MED WIHT AM MEDS. WCTM. BED LOW. CL IN REACH.
--- NOTE | 2016-12-08 06:10 | NUR ---
DC'D CAREY. CATHETER INTACT. PT TOLERATED WELL. PT DRESSED FOR THERAPY AND DENIES NEEDS AT THIS TIME. BED LOW. CL IN [facility] .
--- NOTE | 2016-12-08 08:00 | NUR ---
SHIFT ASSMT COMPLETED.UP OOB TO WC MOD ASSIST.BREAKFAST GIVEN.
[2016-12-08 08:03] VITALS: BP 123/56
--- NOTE | 2016-12-08 12:00 | NUR ---
SITTING UP IN WC EATING LUNCH.VOIDING W/O DIFF SINCE FC DC'D THIS AM.
--- NOTE | 2016-12-08 13:59 | NUR ---
Nutrition Follow Up: Pt was asleep at the time of RD visit. Spoke with nursing who reported that pt is not eating well despite efforts to obtain preferences, etc. Nursing stated that pt loves milk - RD will send on every tray. Pt is eating 44% meal avg on a Regular diet. +BM 12/04/16. I<O. Meds noted including Bumex. Per MD note pt's LUE is healing well. Pt continues with poor po intake. Rec continue current diet. Rec an appetite stimulant. Will continue to provide selective menus and honor food preferences. RD following.
--- NOTE | 2016-12-08 15:53 | NUR ---
patient not wanting to participate in therapy and request that a referral be made to [facility]. Referral faxed will continue to follow with patient
[2016-12-08 19:35] VITALS: BP 126/59
--- NOTE | 2016-12-08 20:00 | NUR ---
PT STATES SHE WANT TO LEAVE TONIGHT, PT WASN'T RECEPTIVE TO THE FACT THAT SHE COULDN'T BE TRANSFERRED TONIGHT.
--- NOTE | 2016-12-08 21:15 | NUR ---
PT NEEDED REASSURANCE AND COMPANY. STAYED IN ROOM WITH PATIENT UNTIL SHE APPEARED TO BE ASLEEP.
--- NOTE | 2016-12-08 21:45 | NUR ---
ASSISTED MAX ASSIST TO TRANSFER TO BSC. PT STATES SHE DOENS'T WANT TO DO ANYTHING.
--- NOTE | 2016-12-09 01:24 | NUR ---
PT RESTING QUIETLY, NO S/S OF ACUTE DISTRESS.
--- NOTE | 2016-12-09 03:00 | NUR ---
PT AWAKE, VERY ANXIOUS, HAD REMOVED HER NASAL CANNULA, REAPPLIED NASAL CANNULA AND COACHED PATIENT TO DEEP BREATHE. SAT WITH PATIENT FOR GREATER THAN 30 MINUTES UNTIL PATIENT FELL BACK TO SLEEP. PT ANXIOUS WHEN LEFT BY HERSELF.
[2016-12-09 06:25] LABS: BASOPHILS 0.2 % (0.0-2.0); EOSINOPHILS 0 % (0-7); IMMATURE GRANULOCYTES 0.8 % (0-5); LYMPHOCYTES 15.4 % (15-50); MCH 29.8 pg (26.0-34.0); MCV 99.3 fL (80.0-100.0); MEAN PLATELET VOLUME 9.6 fL (7.4-10.4); MONOCYTES 10.2 % (2-11); NEUTROPHILS 73.4 % (40-80); PLATELET COUNT 187 10x3/uL (130-400); RBC 3.02 10x6/uL (4.00-5.40); RDW 16.1 % (11.5-14.5); WBC 6.6 10x3/uL (4.8-10.8)
[2016-12-09 06:41] LABS: CALCIUM 8.9 mg/dL (8.5-10.1); CREATININE - SERUM 1.3 mg/dL (0.6-1.3)
--- NOTE | 2016-12-09 07:00 | NUR ---
Pt. was received at the beginning of this shift in bed awake and oriented to person and place. She denies any pain or discomfort at this time. Vital signs: Temp. 97.9, pulse 80, resp. 16, b/p 168/73, 02Sat. 96%. 02 per nc going at 3L/min. Call light is in reach. Will be monitoring her throughout this shift and assisting prn with adl's.
[2016-12-09 08:41] VITALS: BP 168/73
--- NOTE | 2016-12-09 12:53 | NUR ---
Pt. asked for a "pain pill" and an "Ativan" around 0810 and received both at that time. Pt. was assisted to the bathroom where she had a small bm.
--- NOTE | 2016-12-09 13:42 | NUR ---
CARE TEAM MEETING: PATIENT FRIEND ATTENDED MEETING AND WAS INFORMED THAT PATIENT HAS CHOSEN TO GO TO [facility] AND THAT THEY HAVE ACCEPTED HER AND SHE WILL DISCHARGE THERE 12/11/16. WILL CONTINUE TO FOLLOW WITH PATIENT UNTIL DISCHARGED
[2016-12-09 19:00] VITALS: BP 136/72
--- NOTE | 2016-12-09 19:08 | NUR ---
Pt. remains in stable condition. No signs of any pain or discomfort. Call light in reach.
--- NOTE | 2016-12-10 00:37 | NUR ---
PT HAD REMOVED OXYGEN, DESAT TO 75, REAPPLIED NC, INCREASED OXYGEN TO 4L, OXYGENATION 95, DECREASED OXYGEN TO 3 L, PT OXY SAT RETAINED AT 94. SAT WITH PATIENT, MAX ASSIST TO REPOSITION PT, PT CALMED AND WENT BACK TO SLEEP.
--- NOTE | 2016-12-10 03:01 | NUR ---
PT CONTINUES TO REMOVE OXYGEN, STATES SHE DOESN'T WANT IT ON. ENCOURAGED PT TO KEEP NC ON O2 SAT DROPS TO 73. PT HAS REMOVED SHIRT. PT REQUIRES ONE ON ONE WHEN AWAKE.
--- NOTE | 2016-12-10 03:31 | NUR ---
DC'D SUBCLAVIAN CATH PER STERILE TECHNIQUE, REMOVED THREE SUTURES, CATHETER TIP INTACT, APPLIED PRESSURE 5 MIN, NO BLEEDNG, DRESSED WITH STERILE GUAUZE AND TRANSPARENT DRESSING. MONITORED FOR 15 MINUTES. NO ACTIVE BLEEDING NOTED.
--- NOTE | 2016-12-10 06:34 | NUR ---
PT RESTING QUIETLY IN BED WITHOUT SHIRT PT TOOK IT OFF AND REFUSED TO PUT ON NEW TOP.
--- NOTE | 2016-12-10 07:24 | NUR ---
RESTING QUIETLY IN BED. CALL LIGHT IN REACH
--- NOTE | 2016-12-10 08:15 | NUR ---
PT RESTING IN BED WITH EYES OPEN CALL LIGHT IN REACH BREAKFAST SET UP FOR PT WILL MONITER
[2016-12-10 08:21] VITALS: BP 102/60
--- NOTE | 2016-12-10 11:30 | NUR ---
PT COMPLAINING OF NAUSEA AND SOB WILL GIVE PT MEDS FOR NAUSEA PTS O2 SAT 92 PERCENT ON 3 LITERS OF O2 WILL DO CHEST X-RAY ORDERED WILL MONITER
--- NOTE | 2016-12-10 17:00 | NUR ---
DR MITTAL HER TO SEE PT
--- NOTE | 2016-12-10 17:45 | NUR ---
DR ALLEN DISCHARGING PT TO ICU WILL FOLLOW THRU WITH ORDERS
--- NOTE | 2016-12-10 18:15 | NUR ---
REPORT CALLED TO [facility] RN IN ICU WILL
--- NOTE | 2016-12-10 18:36 | NUR ---
TRANSFERED PT TO ICU PER STRETCHER ON 4 LITERS O2 PT TOLERATED WELL
--- NOTE | 2016-12-11 08:14 | NUR ---
LATE ENTRY, DUE TO CHANGE IN MEDICAL CONDTION PATIENT DISCHRGED FROM REHAB AND ADMITTED TO ICU.
== END 2016-12-10 18:37 | disposition short-term general hospital (02) | DRG 559 ==
LOC: D.REHAB 18:00
PROVIDERS: ADMIT Emergency Medicine
DX: S72.002D Fracture of unspecified part of neck of left femur, subsequent encounter for closed fracture with routine healing (principal); J96.21 Acute and chronic respiratory failure with hypoxia; I50.23 Acute on chronic systolic (congestive) heart failure; J96.22 Acute and chronic respiratory failure with hypercapnia; E87.2 Acidosis; I11.0 Hypertensive heart disease with heart failure; I25.10 Atherosclerotic heart disease of native coronary artery without angina pectoris; E78.5 Hyperlipidemia, unspecified; I95.9 Hypotension, unspecified; E03.9 Hypothyroidism, unspecified; J44.9 Chronic obstructive pulmonary disease, unspecified; F32.9 Major depressive disorder, single episode, unspecified; D50.9 Iron deficiency anemia, unspecified; F03.90 Unspecified dementia, unspecified severity, without behavioral disturbance, psychotic disturbance, mood disturbance, and anxiety; I27.2 Other secondary pulmonary hypertension; I34.0 Nonrheumatic mitral (valve) insufficiency; I07.1 Rheumatic tricuspid insufficiency; W19.XXXD Unspecified fall, subsequent encounter

== ENCOUNTER 2016-12-10 18:14 | Inpatient (IN) | payer MEDICARE ==
[2016-12-10] VITALS (8 sets, daily range): BP systolic 123–178; BP diastolic 67–95; BMI 20.9
[~2016-12-10] VITALS: Ht 170.2 cm; Wt 67.3 kg
--- NOTE | 2016-12-10 18:30 | NUR ---
REC'D PT FROM REHAB. PT PETEYO X3, 4LNC. NO FAMILY AT THE BEDSIDE. NO IV ACCESS. PT PERSONAL BELONGINGS AT THE BEDSIDE.
--- NOTE | 2016-12-10 19:20 | NUR ---
ASSESSMENT COMPLETE, AT THIS TIME, PT IS CONFUSED TO TIME AND SITUATION, ATTEMPTED TO REORIENT, ON 2L NC WITH 95% O2 SAT. LUNGS CLEAR IN B/L UPPER LOBES, DIMINISHED IN B/L LOWER LOBES, S1S2, CM-NSR, ABDOMEN IS SOFT AND ROUND WITH ACTIVE BS, PT UPTO BSC, CLEAR YELLOW UOP NOTED, NO EDEMA NOTED, ALL PPP, VSS, CALL LIGHT IN REACH
--- NOTE | 2016-12-10 21:05 | NUR ---
NO VISITORS AT THIS TIME, WILL CON'T TO MONITOR
--- NOTE | 2016-12-10 22:37 | NUR ---
DR. MITTAL NOTIFIED OF NEED OF IV, PT STUCK 7 TIMES, NEW ORDERS RECIEVED
--- NOTE | 2016-12-10 22:41 | NUR ---
DR. KLINE NOTIFIED OF PT NEEDING CVL PLACEMENT
--- NOTE | 2016-12-10 23:00 | NUR ---
LEFT SC CVL PLACED AT THIS TIME BY DR. KLINE, PT TOLERATED WELL
--- NOTE | 2016-12-10 23:10 | NUR ---
POST CVL PLACEMENT CXR
--- NOTE | 2016-12-10 23:20 | NUR ---
REASSESSMENT COMPLETE, NO CHANGES NOTED, PT RESTING AT THIS TIME, WILL CON'T TO MONITOR
[2016-12-11] VITALS (24 sets, daily range): BP systolic 94–171; BP diastolic 56–95; Ht 170.2 cm; Wt 67.3 kg
--- NOTE | 2016-12-11 01:06 | NUR ---
ANXIETY NOTED WHILE PT ON BIPAP, INCREASED RR, AND AGITATION, DR. MITTAL NOTIFIED, NEW ORDERS RECIEVED
--- NOTE | 2016-12-11 03:00 | NUR ---
REASSESSMENT COMPLETE PER FLOWSHEET, PATIENT RESTING IN BED ON BIPAP WITH EYES CLOSED. BREATHING IS SHALLOW AND IRREGULAR WITH OXYGEN SAT 97%, LUNG SOUNDS CLEAR BILATERAL UPPER WITH DIMINISHED LOWER. ALL PULSES PALPABLE, CAP REFILL <3 SEC. PATIENT DENIES PAIN OR OTHER NEEDS AT THIS TIME. NEEDS AT THIS TIME, ALL VSS AND WILL CONTINUE TO MONITOR.
--- NOTE | 2016-12-11 05:00 | NUR ---
PATIENT RESTING IN BED WITH EYES CLOSED ON BIPAP, OXYGEN SAT IS 97% ON 40% O2. PATIENT REPOSITIONED FOR COMFORT, DENIES PAIN OR OTHER NEEDS AT THIS TIME. ALL VSS AND WILL CONTINUE TO MONITOR.
[2016-12-11 05:51] LABS: BASOPHILS 0.2 % (0.0-2.0); EOSINOPHILS 0 % (0-7); HEMATOCRIT 28.6 % (36.0-48.0); HEMOGLOBIN 8.5 g/dL (12-16); IMMATURE GRANULOCYTES 0.9 % (0-5); LYMPHOCYTES 13.3 % (15-50); MCH 29.1 pg (26.0-34.0); MCHC 29.7 g/dL (31.0-37.0); MCV 97.9 fL (80.0-100.0); MEAN PLATELET VOLUME 10.6 fL (7.4-10.4); MONOCYTES 9.8 % (2-11); NEUTROPHILS 75.8 % (40-80); PLATELET COUNT 211 10x3/uL (130-400); RBC 2.92 10x6/uL (4.00-5.40); RDW 16.6 % (11.5-14.5); WBC 5.8 10x3/uL (4.8-10.8)
[2016-12-11 06:16] LABS: ALBUMIN 2.3 g/dL (3.4-5.0); BILIRUBIN - TOTAL 0.77 mg/dL (0.2-1.3); CALCIUM 8.8 mg/dL (8.5-10.1); CREATININE - SERUM 1.3 mg/dL (0.6-1.3); MAGNESIUM - SERUM 1.5 mg/dL (1.8-2.4); PROTEIN - SERUM 6.6 g/dL (6.4-8.2)
[2016-12-11 06:24] LABS: ANION GAP 8.1 mmol/L (8-16); CARBON DIOXIDE 39.9 mmol/L (21.0-32.0)
--- NOTE | 2016-12-11 08:32 | NUR ---
TOTAL BED CHANGE PROVIDED AT THIS TIME. CAREY ALSO PLACED AT THIS ITME FOR ACCURATE 1&O. URINE NOTED TO BE JESUS IN COLOR. NO ACUTE DISTRESS NOTED. PT ALERT AND ORIENTED. WILL CONTINUE PLAN OF CARE.
--- NOTE | 2016-12-11 09:17 | NUR ---
FAMILY AT BEDSIDE. UPDATE GIVEN. NO ACUTE DISTRESS NOTED.WILL CONTINUE PLAN OF CARE.
--- NOTE | 2016-12-11 09:24 | NUR ---
SPOKE WITH PT AND PT DAUGHTER WHO STATES PT WISHES TO BE A DNR. PT STATES SHE UNDERSTANDS WHAT A DNR STATUS MEANS AND WISHES TO BE A DNR. WILL PLACE ORDERS AND RESPECT PTS WISHES AT THIS TIME. THIS WAS WITNESSED BY PT DAUGHTER, CONTRERAS WEEKLY AND SECOND NURSE. NO ACUTE DISTRESS NOTED. WILL CONTINUE PLAN OF CARE.
--- NOTE | 2016-12-11 11:47 | NUR ---
Patient Name: THELMA SEWELL Admission Status: Elective Accout number: [id number] Admission Date: 12-10-2016 : 1929 Admission Diagnosis: Attending: JOSEFINA Current LOS: 1 Anticipated DC Date: 12-16-2016 Planned Disposition: Assisted Facility Primary Insurance: MEDICARE A & B Discharge Planning Comments: CM CALLED JOHNNIE WEI (POA) TO DISCUSS D/C NEEDS AND PLANS. PATIENT WAS INDEPENDENT AT HOME BEFORE ALL THE LATEST HOSPITAL VISITS PER POA. PATIENT WAS ADMITTED TO ICU FROM REHAB. PATIENT HAS A WALKER, BUILT IN SHOWER BENCH, AND OXYGEN AT HOME. PATIENT IS FROM [facility]. PATIENT AND POA TALKED ABOUT HER GOING TO [facility] AT DISCHARGE. PATIENTS PCP IS DR. VILLAFUERTE AND PHARMACY IS [facility] BUT WILL USE [facility] FOR D/C MEDS. CM WILL CONTINUE TO FOLLOW PATIENT WITH D/C NEEDS AND PLANS. PCP DR. VILLAFUERTE [facility] - [phone] JOHNNIE WEI ([facility]) [phone] Drill Sharpener Operator: Juanita Tucker How many steps to enter\exit or inside your home? 0 0 * PCP DR. VILLAFUERTE 0 * Pharmacy [facility] LOCAL OR [facility] MAIL ORDER 0 * Preadmission Environment Assisted Living 0 * Facility Name SHE LIVES ON THE INDEPENDENT SIDE AT [facility] 0 * ADLs Independent 0 * Equipment Oxygen Tub Bench Walker 0 * List name and contact numbers for known caregivers / representatives who currently or will assist patient after discharge: JOHNNIE WEI ([facility]) [phone] * Community resources currently utilized None 0 * Additional services required to return to the preadmission environment? Yes 0 * Can the patient safely return to the preadmission environment? No 0 * Has this patient been hospitalized within the prior 30 days at any hospital? Yes 0 Grand Total: 0
--- NOTE | 2016-12-11 12:31 | NUR ---
BIPAP REMOVED AT THIS TIME, NASAL CANULA PLACED AT 4L OXYGEN. PT SATURATION AT 97%. PT DAUGHTER IS HELPING PT TO EAT LUNCH. NO ACUTE DISTRESS NOTED. WILL CONTINUE PLAN OF CARE.
--- NOTE | 2016-12-11 13:41 | NUR ---
NOTED CARIOLOGY CONSULT, PAGED DR GUZMÁN. NOTED HE STATED HE WOULD BE BY TO SEE PT LATER TODAY. NO ACUTE DISTRESS NOTED. WILL CONTINUE PLAN OF CARE.
--- NOTE | 2016-12-11 14:05 | NUR ---
UP IN BED AT THIS TIME. CONTINENT BOWEL MOVEMENT VIA BEDPAN NOTED, SOFTLY FORMED, SMALL IN SIZE. OXYGEN AT 4L VIA NC. PT OXYGEN SATURATION AT 96%. NO ACUTE DISTRESS NOTED. WILL CONTINUE PLAN FO CARE.
--- NOTE | 2016-12-11 16:46 | NUR ---
UP IN BED AWAKE AT THIS TIME FEEDING SELF SUPPER VIA SETUP. NO ACUTE DISTRESS NOTED. WILL CONTINUE PLAN OF CARE.
--- NOTE | 2016-12-11 18:32 | NUR ---
UP IN BED VISITING WITH DAUGHTER AT THIS TIME. NO ACUTE DISTRESS NOTED. VSS. PT ALERT AND ORIENTED. WILL CONTINUE PLAN OF CARE.
--- NOTE | 2016-12-11 19:40 | NUR ---
Assessment complete. See flowsheet. Pt awake upon entrance into room with VSS. Pt alert, oriented x4 and following all conversation and commands with 4/5 strength to upper extremities and 3/5 strength to lower extremities bilaterally. +2 pitting edema noted to lower extremities bilaterally. SCDs secure. Pupils size 3 bilaterally ERRLA. O2 @ 4L NC. Lung sounds CTA. HR SR with S1S2 auscultated. All peripheral pulses +1 with capillary refill <3 seconds. Left TLSC CVL site CDI no s/s infection with NS @ KVO rate with ABx as scheduled. Abdomen soft, non-distended with BS present to all quadrants. Lugo catheter secure retrieving clear/yellow urine. Linens dewrinkled per pt request. Fresh ice water provided per pt request. Pt denies pain at this time and helped to position to left side. No s/s distress. Call light and bedside table within pt reach. heels and arms bridged. CPOC.
--- NOTE | 2016-12-11 21:40 | NUR ---
Pt becoming confused and demanding. Pt short with attitude and oriented to person only. Ativan 1mg per order administered for anxiety. See MAR. Pt helped to position to right side. Fan placed in room per request. Cover removed. Sheet remains in place.
--- NOTE | 2016-12-11 22:39 | NUR ---
BIPAP mask back on for pt confusion and shallow respirations. Pt anxious and reoriented to place time and situation. BIPAP mask set 16/7 FiO2 @ 40%
--- NOTE | 2016-12-11 22:53 | NUR ---
Pt removing BIPAP mask and resecured. Pt explained to the importance of keeping BIPAP mask on.
--- NOTE | 2016-12-11 23:10 | NUR ---
Pt removing BIPAP mask and remains confused. Pt attempting to pull at CVL site. Bilat soft wrist restraints placed and secured to protect CVL and respiratory status.
--- NOTE | 2016-12-11 23:40 | NUR ---
Reassessment complete. See flowsheet. Pt resting with BIPAP mask secure. No setting changes to note. Lung sounds remain CTA. HR ST with frequent PACs noted. S1S2 auscultated. Pt remains anxious but calmer now than previously assessed. Pt oriented to person only at this time and suspectful of CO2 elevation; hence BIPAP mask intervention. BS +. Lugo remains secure retrieving clear/yellow urine. CVL site CDI with NO IVF changes to note from previous assessment. Pt repositioned to back with HOB @ 30 degrees. Arms and heels rebridged.
[2016-12-12] VITALS (21 sets, daily range): BP systolic 90–177; BP diastolic 53–101
--- NOTE | 2016-12-12 01:40 | NUR ---
Pt resting quietly with BIPAP mask secured. VSS. NO changes and pt allowed to continue resting undisturbed.
--- NOTE | 2016-12-12 03:40 | NUR ---
Reassessment complete. See flowsheet. Pt resting with BIPAP mask secure and no setting changes to note. Pt awakes to verbal stimulation and remains oriented to person only but much more cooperative now and continues to follow commands. Lung sounds currently clear to all bush. HR SR. S1S2 auscultated. CVL site remains CDI with NO IVF changes to note. BS remain present to all quadrants. Lugo remains secure retrieving clear/yellow urine. Pt repositioned to back with HOB @ 30 degrees for AM CXR. Linens remain clean and dry. SCDs secure. Bilat soft wrist restraints resecured after ROM completed. Call light remains within pt reach. CPOC.
[2016-12-12 04:17] LABS: BASOPHILS 0 % (0.0-2.0); EOSINOPHILS 0 % (0-7); IMMATURE GRANULOCYTES 0.9 % (0-5); LYMPHOCYTES 16.1 % (15-50); MCH 29.6 pg (26.0-34.0); MCHC 29.6 g/dL (31.0-37.0); MEAN PLATELET VOLUME 9.8 fL (7.4-10.4); MONOCYTES 9.2 % (2-11); NEUTROPHILS 73.8 % (40-80); PLATELET COUNT 190 10x3/uL (130-400); RDW 16.9 % (11.5-14.5); WBC 5.8 10x3/uL (4.8-10.8)
[2016-12-12 04:37] LABS: ALBUMIN 2.1 g/dL (3.4-5.0); ANION GAP 4.9 mmol/L (8-16); BILIRUBIN - TOTAL 0.61 mg/dL (0.2-1.3); CALCIUM 8.4 mg/dL (8.5-10.1); CARBON DIOXIDE 42.5 mmol/L (21.0-32.0); CREATININE - SERUM 1.4 mg/dL (0.6-1.3); MAGNESIUM - SERUM 1.5 mg/dL (1.8-2.4); POTASSIUM - SERUM 3.4 mmol/L (3.5-5.1)
--- NOTE | 2016-12-12 05:13 | NUR ---
ABG requested and resulted. BIPAP mask off. Pt helped with sips of ice water and placed on O2 @ 2L NC.
--- NOTE | 2016-12-12 05:40 | NUR ---
Pt remains disoriented but calm/cooperative. O2 @ 2L NC. Wrist restraints off for now. Pt helped with sips of ice water.
--- NOTE | 2016-12-12 08:28 | NUR ---
PT ALERT AND OREINTED. SITTING UP IN BED AT THIS TIME EATING BREAKFAST. NO ACUTE DISTRESS NOTED. PT ON OXYGEN AT 2L VIA NC, OXYGEN SATURATION AT 97%. DENIES ANY NEEDS. WILL CONTINUE PLAN OF CARE.
--- NOTE | 2016-12-12 09:19 | NUR ---
PT NOTED TO BECOME ANXIOUS, PRN ATIVAN ADMIN UPON REQUEST. WILL CONTINUE TO OBSERVE.
--- NOTE | 2016-12-12 11:15 | NUR ---
LYING IN BED RESTING AT THIS TIME. NO ACUTE DISTRESS NOTED. AWAKENS WHEN STAFF STATES PT NAME. WILL CONTINUE PLAN OF CARE.
--- NOTE | 2016-12-12 12:29 | NUR ---
UP IN BED AWAKE AT THIS TIME. DENIES ANY NEEDS. REFUSED LUNCH. WILL CONTINUE PLAN OF CARE.
--- NOTE | 2016-12-12 13:44 | NUR ---
NOTED PT BLOOD PRESSURE HAS BEEN RUNNING SYSTOLIC BETWEEN 150-170 SINCE DOBUTAMINE DRIP HAS BEEN STARTED AT 5MCG. SPOKE WITH DR GUZMÁN FOR POSSIBLE FURTHER ORDERS, NOTED ORDER TO DECREASE DOBUTAMINE DRIP FROM 5MCG TO 3MCG. WILL ADJUST SETTINGS PER ORDER AT THIS TIME.
--- NOTE | 2016-12-12 14:18 | NUR ---
POTASSIUM REDRAW NOTED WNL.
--- NOTE | 2016-12-12 16:35 | NUR ---
NOTED BLOOD PRESSURE IS STILL HIGH AT 169/97, CALLED DR GUZMÁN FOR FURTHER ORDERS, NOTED ONE TIME ORDER OF CLONIDINE 0.1 MG. WILL ADMIN ORDERED.
--- NOTE | 2016-12-12 18:05 | NUR ---
UP IN BED AWAKE AT THIS TIME. DENIES ANY NEEDS. NO ACUTE DISTRESS NOTED. WILL CONTINUE PLAN OF CARE.
--- NOTE | 2016-12-12 22:45 | NUR ---
1929- REPORT RECVD. CARE ASSUMED. INITIAL ASSMNT COMPLETED. SEE FLOWSHEET FOR ALL FINDINGS. AWAKE AND ALERT. MILD CONFUSION SEEN. PERRLA. RESP SHALLOW/ LUNDS DIMIN BASES. SPO2 97% ON O2 AT 4 LPM NC. AFEBRILE. SR ON THE MONITOR. DOBUTAMINE GTT AT 3MCG TO LEFT CVL. PULSES PALP, WEAK. SCDS ON. TURNED AND REPOSITIONED. HOB UP. C/L IN REACH. CONT CURRENT POC. 2100- NO VISITORS. NEDS GIVEN. ANXIOUS. PRN ATIVAN FOR COMFORT. VSS. HOB UP. C/L IN REACH. CONT CURRENT POC. 224- REPORT CALLED TO CONNIE MERCEDES. VSS. DENIES NEEDS.
[2016-12-13] VITALS: BP 126/61; BP 145/89
--- NOTE | 2016-12-13 00:53 | NUR ---
RECEIVED PT FROM ICU VIA BED TO ROOM 2113 IN STABLE CONDITION PT IS AAOX4 RESP UNLABORED DENIES ANY NEEDS OR DISCOMFORT NAD NOTED
[2016-12-13 04:00] VITALS: BP 121/60
[2016-12-13 05:28] LABS: BASOPHILS 0.2 % (0.0-2.0); EOSINOPHILS 0 % (0-7); HEMATOCRIT 27.5 % (36.0-48.0); HEMOGLOBIN 8.3 g/dL (12-16); IMMATURE GRANULOCYTES 0.7 % (0-5); LYMPHOCYTES 14.7 % (15-50); MCHC 30.2 g/dL (31.0-37.0); MCV 99.3 fL (80.0-100.0); MEAN PLATELET VOLUME 10.7 fL (7.4-10.4); MONOCYTES 6.6 % (2-11); NEUTROPHILS 77.8 % (40-80); PLATELET COUNT 201 10x3/uL (130-400); RBC 2.77 10x6/uL (4.00-5.40); RDW 17.2 % (11.5-14.5); WBC 5.7 10x3/uL (4.8-10.8)
[2016-12-13 05:40] LABS: ALBUMIN 2.1 g/dL (3.4-5.0); BILIRUBIN - TOTAL 0.72 mg/dL (0.2-1.3); CALCIUM 8.3 mg/dL (8.5-10.1); CARBON DIOXIDE 39.9 mmol/L (21.0-32.0); CREATININE - SERUM 1.2 mg/dL (0.6-1.3); MAGNESIUM - SERUM 1.8 mg/dL (1.8-2.4); PROTEIN - SERUM 6.2 g/dL (6.4-8.2)
[2016-12-13 05:41] LABS: POTASSIUM - SERUM 2.9 mmol/L (3.5-5.1)
[2016-12-13 07:00] VITALS: BP 129/72
--- NOTE | 2016-12-13 10:22 | NUR ---
PATIENT IS DOING WELL, SLASH TRIMMER LIGHT FOR LITTLE NEEDS. STATES THAT SHE WANTS SOMEONE IN THERE AT ALL TIME. DOOR IS LEFT OPEN FOR PATIENT TO SEE US AT THE NURSE STATION, CALL LIGHT IS IN REACH. WILL CONTINUE TO MONITOR.
[2016-12-13 11:56] VITALS: BP 127/69
--- NOTE | 2016-12-13 14:02 | NUR ---
LYING QUIETLY. DENIES ANY NEEDS. STATES SHE JUST WANTS SOMEONE TO STAY IN THE ROOM. RESP REG AND NON LABORED.
--- NOTE | 2016-12-13 15:39 | NUR ---
LYING QUIETLY. DENIES ANY DISCOMFORT. WILL MONITOR
[2016-12-13 16:00] VITALS: BP 187/94
--- NOTE | 2016-12-13 19:00 | NUR ---
INITIAL ROUNDS MADE. PT SITTING UP IN BED, NO DISTRESS NOTED. CALL LIGHT IN REACH. WILL CONT TO MONITOR.
[2016-12-13 20:00] VITALS: BP 150/90
[2016-12-14] VITALS: BP 105/63
--- NOTE | 2016-12-14 00:21 | NUR ---
HEEL SPRAYER FIRST AT BEDSIDE FOR VS. NEEDS ADDRESSED, CALL LIGHT IN REACH. WILL CONT TO MONITOR.
[2016-12-14 04:00] VITALS: BP 152/86
--- NOTE | 2016-12-14 04:40 | NUR ---
PT VERY AGITATED, ANXIOUS. YELLING OUT TO NURSES, ORIENTED TO SELF ONLY. ATIVAN GIVEN ORDERED PRN.
[2016-12-14 05:45] LABS: BASOPHILS 0.1 % (0.0-2.0); EOSINOPHILS 0.1 % (0-7); HEMATOCRIT 30.3 % (36.0-48.0); IMMATURE GRANULOCYTES 1.4 % (0-5); LYMPHOCYTES 11.5 % (15-50); MCH 29.6 pg (26.0-34.0); MCHC 29.7 g/dL (31.0-37.0); MCV 99.7 fL (80.0-100.0); MEAN PLATELET VOLUME 10.4 fL (7.4-10.4); NEUTROPHILS 77.9 % (40-80); PLATELET COUNT 210 10x3/uL (130-400); RBC 3.04 10x6/uL (4.00-5.40); RDW 17.3 % (11.5-14.5)
[2016-12-14 05:46] LABS: WBC 7.9 10x3/uL (4.8-10.8)
[2016-12-14 06:23] LABS: ALBUMIN 2.3 g/dL (3.4-5.0); ANION GAP 9.8 mmol/L (8-16); BILIRUBIN - TOTAL 0.62 mg/dL (0.2-1.3); CALCIUM 8.5 mg/dL (8.5-10.1); CARBON DIOXIDE 35.2 mmol/L (21.0-32.0); MAGNESIUM - SERUM 1.8 mg/dL (1.8-2.4); PROTEIN - SERUM 6.6 g/dL (6.4-8.2)
[2016-12-14 07:42] VITALS: BP 125/92
--- NOTE | 2016-12-14 09:18 | NUR ---
TELEMETRY SR. RESP UL ON 02 3L NC. IV PATENT. CAREY INTACT. WILL CONT. PLAN OF CARE.
[2016-12-14 11:50] VITALS: BP 108/56
[2016-12-14 16:01] VITALS: BP 171/73
--- NOTE | 2016-12-14 19:00 | NUR ---
INITIAL ROUNDS MADE. PT LYING IN BED RESTING WELL WITH EYES CLOSED. NO DISTRESS NOTED. WILL CONT TO MONITOR.
[2016-12-14 20:00] VITALS: BP 145/72
--- NOTE | 2016-12-14 22:00 | NUR ---
PT DIAPHORETIC, HAS PULLED O2 OFF, SAT 70% RESP LABORED AT THIS TIME. PUT OXYGEN BACK ON, SATS RETURNED TO UPPER 80'S.
--- NOTE | 2016-12-14 23:30 | NUR ---
MARINE GEOLOGIST REPORTS PT'S O2 SAT 69% EVEN WITH O2 ON 4L. PT BREATHING LABORED, 44BPM. ALL VS STABLE. PT VERY ANXIOUS, BUT DENIES MY REQUEST TO CALL ANYONE FOR HER.
--- NOTE | 2016-12-14 23:36 | NUR ---
SEARCH ENGINE OPTIMIZATION SPECIALIST AT BEDSIDE FOR VS, NEEDS ADDRESSED AT THIS TIME. CALL LIGHT IN REACH. CONT TO MONITOR.
[2016-12-15] VITALS: BP 128/62
--- NOTE | 2016-12-15 00:44 | NUR ---
NOTIFIED PT'S EMERGENCY CONTACT, JOHNNIE, OF PT STATUS CHANGE. UPDATED ON PT CONDITION. SHE STATED THERE WAS NO FAMILY FOR US TO NOTIFY, ONLY A DAUGHTER THAT SHE HAS STAYED IN CONTACT WITH TO KEEP UPDATED. REQUESTED WE CALL HER BACK IF CONDITION PROGRESSES.
--- NOTE | 2016-12-15 00:50 | NUR ---
PT NO RESPIRATIONS AT THIS TIME. SINUS EDSON 32 ON TELE. VERY COLD CLAMMY TO TOUCH. PUPILS FIXED.
--- NOTE | 2016-12-15 01:11 | NUR ---
ASYSTOLE ON TELEMETRY.
--- NOTE | 2016-12-15 01:19 | NUR ---
PT PRONOUNCED. SEE RECORD OF .
--- NOTE | 2016-12-15 01:27 | NUR ---
NOTIFIED JOHNNIE OF PT'S PASSING. SHE STATES THAT THE HOME IS TO BE [facility] IN [place]. AND THAT SHE WILL NOTIFY THE PT'S DAUGHTER.
--- NOTE | 2016-12-15 04:57 | NUR ---
PT RELEASED TO [facility].
--- NOTE | 2016-12-17 13:01 | OP ---
PATIENT NAME: HTELMA SEWELL MEDICAL RECORD: [id number] :29 LOCATION:D.M2 D.2114 ADMISSION DATE:12/10/16 SURGEON: CHRISTA KLINE MD DATE OF OPERATION: 12/10/2016 PREOPERATIVE DIAGNOSES: 1. Need for IV access. 2. Severe pulmonary hypertension. 3. Chronic obstructive pulmonary disease. 4. Systolic congestive heart failure. 5. History of recent ORIF of the hip. 6. Atrial fibrillation. 7. Hypertension. 8. Coronary artery disease. 9. Dementia. POSTOPERATIVE DIAGNOSES: 1. Need for IV access. 2. Severe pulmonary hypertension. 3. Chronic obstructive pulmonary disease. 4. Systolic congestive heart failure. 5. History of recent ORIF of the hip. 6. Atrial fibrillation. 7. Hypertension. 8. Coronary artery disease. 9. Dementia. PROCEDURE: Left subclavian vein central venous line placement. SURGEON: Christa Kline MD REPORT OF PROCEDURE: The patient's left chest was prepped and draped in sterile fashion, 5 cc of 1% lidocaine was infused into the surrounding tissues. A needle was used to cannulate the left subclavian vein. The guidewire was advanced with ease. Over this wire, a dilator was placed followed by the triple lumen catheter. The catheter aspirated nonpulsatile dark blood and flushed easily in all 3 ports. This was sutured into place with 3-0 silk ties and dressed appropriately. COMPLICATIONS: None. CONDITION: Stable. ANESTHESIA: Local. BLOOD LOSS: Minimal. TRANSINT:[id number] Voice Confirmation ID: [id number] DOCUMENT ID: [id number] OPERATIVE REPORT [id number] SEWELLTHELMA GARCIA CHRISTA KLINE MD at 1301 CC: [id number] DICTATION DATE: 12/11/16 1321 ASPHALT MIXING MACHINE OPERATOR: 12/11/16 1819 DIS IN 12/15/16 [id number] [place] [address]
--- NOTE | 2017-01-08 13:49 | CN ---
PATIENT NAME:THELMA SEWELL MEDICAL RECORD: [id number] : 29 LOCATION:D. D.2114 ADMIT DATE: 12/10/16 ACCOUNT: [id number] CONSULTING PHYSICIAN: MAI MITTAL MD REFERRING PHYSICIAN: MAI MITTAL MD DATE OF CONSULTATION: 12/10/2016 CONSULT REQUESTING PHYSICIAN: Alejo Vences MD. REASON FOR CONSULTATION: Vwzch-km-scbdzyu shortness of breath. HISTORY OF PRESENT ILLNESS: Ms. Sewell is an 86-year-old female who recently has a hip fracture, she had ORIF and then she was on mechanical ventilation for hypoxia. The patient has severe pulmonary hypertension, COPD and systolic congestive heart failure. Now, the patient is very weak and lethargic and the patient could not communicate. REVIEW OF SYSTEMS: Mainly in the history of present illness. PAST MEDICAL HISTORY: 1. Severe pulmonary hypertension with right ventricular systolic pressure of 92. 2. COPD. 3. History of deep venous thrombosis. 4. Gastroesophageal reflux disease. 5. Coronary artery disease status post RCA. 6. Hypertension. 7. History of atrial fibrillation. 8. Dementia. 9. Hypothyroidism. 10. History of asthma. PAST SURGICAL HISTORY: 1. She had a recent hip fracture and ORIF. 2. She has mitral valve replacement in 2002. 3. Hysterectomy. 4. Lumbar laminectomy. 5. She had a breast biopsy. ALLERGIES: SHE IS ALLERGIC TO: 1. GLUCOCORTICOIDS. 2. STEROID, WHICH MAKES HER BODY SUNSHINE. PRESENT MEDICATIONS: [employer] was reviewed. PERSONAL AND SOCIAL HISTORY: The patient is an ex-smoker. FAMILY HISTORY: Unknown. She has a history of alcoholism. CHEST RADIOGRAPH: 1. There is a mild diffuse pulmonary vascular congestion. 2. Moderate patchy infiltrate changes in the mid and lower lung. 3. Small bilateral pleural effusion. LABORATORY DATA: CBC: WBC is 6.6, hemoglobin 9, hematocrit 30, platelet count CONSULT REPORT [id number] THELMA SEWELL 187. Chemistry: Sodium is 139, potassium is 4, BUN is 33, creatinine 1.3, glucose 107, ABG today, the pH is 7.42, pCO2 is 65.4 and the bicarb is 43.2. IMPRESSION: 1. Mczxt-sm-cgogveu hypoxic hypercapnic respiratory failure. 2. Compensatory respiratory acidosis. 3. Pneumonia, possible bilateral hospital-acquired pneumonia. 4. Bilateral pleural effusion. 5. Jbjra-nj-dlxrdyy congestive heart failure with systolic dysfunction. 6. Pulmonary edema. 7. Chronic obstructive pulmonary disease. 8. Severe pulmonary hypertension with a right ventricular systolic pressure of 92. 9. Gastroesophageal reflux disease. RECOMMENDATION: 1. We will transfer the patient to the ICU, BiPAP and titrate to the patient comfort. albuterol/ipratropium nebulizer. 2. Bumex 2 mg IV q.12 hourly and Diamox 250 mg q.8 hourly. Start her on broad-spectrum antibiotics, vancomycin, Levaquin and cefepime to cover for hospital-acquired pneumonia. 3. Follow up labs and chest radiograph. 4. Continue home medications with Lovenox for DVT prophylaxis. Dr. Alejo Vences, once again thanks for involving me in the care of Ms. Sewell. The critical care time is 45 minutes. TRANSINT:[id number] Voice Confirmation ID: [id number] DOCUMENT ID: [id number] MAI MITTAL MD at 1349 CC: [id number] DICTATION DATE: 12/10/16 180 CREATIVE ART THERAPIST: 12/10/16 2131 DIS IN 12/15/16 [facility] [address] [place] [address]
== END 2016-12-15 01:19 | DRG 291 ==
LOC: D.ICU 18:14 → D.M2 12-12 22:55
PROVIDERS: ADMIT Internal Medicine Pulmonary Disease
PROC: 02HV33Z Insertion of Infusion Device into Superior Vena Cava, Percutaneous Approach (ICD-10-PCS; principal; 2016-12-10)
DX: I50.23 Acute on chronic systolic (congestive) heart failure (principal); J96.21 Acute and chronic respiratory failure with hypoxia; J18.9 Pneumonia, unspecified organism; J96.22 Acute and chronic respiratory failure with hypercapnia; E87.2 Acidosis; I42.9 Cardiomyopathy, unspecified; J44.1 Chronic obstructive pulmonary disease with (acute) exacerbation; J45.901 Unspecified asthma with (acute) exacerbation; Z66 Do not resuscitate; I27.2 Other secondary pulmonary hypertension; K21.9 Gastro-esophageal reflux disease without esophagitis; J44.9 Chronic obstructive pulmonary disease, unspecified; I48.91 Unspecified atrial fibrillation; I08.3 Combined rheumatic disorders of mitral, aortic and tricuspid valves; E03.9 Hypothyroidism, unspecified; F03.90 Unspecified dementia, unspecified severity, without behavioral disturbance, psychotic disturbance, mood disturbance, and anxiety; G62.9 Polyneuropathy, unspecified; F32.9 Major depressive disorder, single episode, unspecified; D50.9 Iron deficiency anemia, unspecified; E53.8 Deficiency of other specified B group vitamins